=== PATIENT | female | born 1960 | race Caucasian/White ===

== ENCOUNTER 2017-07-16 13:08 | Inpatient (IN) | payer MEDICAID, OTHER ==
[2017-07-16] MEDS ORDERED: DOPamine 400 MG/D5W 250 ML 0 ML ONE (13:55)
[2017-07-16] MEDS ORDERED: Norepinephrine 8 MG/0.9% NS 250 ML ONE (13:55)
[2017-07-16] MEDS ORDERED: DOPamine 400 MG/D5W 250 ML 250 ML ONE (13:57)
[2017-07-16] MEDS ORDERED: DOPamine 400 MG/D5W 250 ML 250 ML IVPB SCH (14:00)
[2017-07-16] MEDS ORDERED: Sodium Chloride 0.9% 100 ML ONE (15:05)
[2017-07-16] MEDS ORDERED: Phenylephrine 10 MG/NS 250 ML 250 ML ONE (15:46)
[2017-07-16] MEDS ORDERED: Fentanyl 250 MCG/5 ML VIAL ONE (15:46)
[2017-07-16 16:02] LABS: Lactic Acid - Sepsis 2.2 mmol/L (0.5-2.2)
--- NOTE | 2017-07-16 16:27 | CT ---
CT ABDOMEN AND PELVIS WITHOUT CONTRAST: Date: 07/16/17 HISTORY: Abdominal pain. Sepsis. Elevated lactic acid level. COMPARISON: None. FINDINGS: Atelectasis in the lung bases. Severe thickening of the entire colon with areas suggestive of pneuma tosis of the transverse colon. There appears to be some breakdown of the wall of the transverse colo n and hepatic flexure. There is some free fluid in the pelvis anteriorly around the sigmoid colon. Charles catheter is in place. No nephrolithiasis. Aortic contour is without aneurysmal dilatation. Moderate degenerative disease L5-S1. IMPRESSION: Concern for breakdown of the integrity of the wall of nearly the entire colon with multiple areas of severe submucosal edema, thickening, pericolonic stranding, as well as free fluid near the sigmoid colon and the ectatic transverse colon with some areas of pneumatosis. Bowel ischemia and bowel is most likely. This goes along with patient's history. Dr. Huynh notified of the findings via telephone at 1420 hours. CODE CR. POS: [facility]
[2017-07-16] MEDS ORDERED: Lidocaine 2% PF 10 ML AMP (For Epidural Use) ONE (16:28)
[2017-07-16] MEDS ORDERED: PHENYLEPHRINE-NS 100 MCG/ML 10 ML SYRINGE ONE (16:28)
[2017-07-16] MEDS ORDERED: Succinylcholine Chloride 20 MG/ML 10 ml SYRINGE FS ONE (16:28)
[2017-07-16] MEDS ORDERED: Propofol 200 MG/20 ML VIAL ONE (16:28)
[2017-07-16] MEDS ORDERED: Sodium Bicarbonate 2.4 MEQ/5 ML ONE (16:55)
[2017-07-16] MEDS ORDERED: Sodium Bicarb 50 MEQ/50 ML Abboject 8.4% SYRINGE ONE (16:56)
[2017-07-16] MEDS ORDERED: Albumin 5% 500 ML ONE (16:57)
--- NOTE | 2017-07-16 17:11 | RAD ---
RADIOGRAPH CHEST 1 VIEW: Date: 07/16/17 Time: 1531 HOURS HISTORY: 56-year-old female status post central line placement. COMPARISON: 07/16/17 at 1037 hours from [facility]. FINDINGS: Again noted is the mild effacement of the left lateral costophrenic angle (which was not present on an older chest radiograph of 11/17/2014). Interstitial markings are prominent. A right subclavian ce ntral vascular catheter now descends the right mediastinum, with distal tip overlying the inferior p ortion of the right cardiac shadow. This is a supine image, and therefore insensitive for pneumothor ax detection. IMPRESSION: 1. Right subclavian central vascular catheter placement with distal tip overlying the lower portion of the right atrium. 2. No acute pulmonary findings. NAHUN [] POS: [facility]
[2017-07-16] MEDS ORDERED: Promethazine HCl 25 MG/ML VIAL IM PRN (18:25)
--- NOTE | 2017-07-16 18:36 | OP ---
PREOPERATIVE DIAGNOSIS: Acute abdomen. SURGEON: Juan Maldonado M.D. PROCEDURES PERFORMED: Exploratory laparotomy, left hemicolectomy with end transverse colostomy. INDICATIONS: The patient is a 56-year-old female who has a long psychiatric history on multiple serene gs who evidently was found by her family in a pile of feces in her house, fairly unresponsive. She was taken to the emergency room where CT scan showed that her colon appeared to be ischemic with mario e free air and she was septic and required pressors. FINDINGS: Her left colon was with an area of perforation in the distal sigmoid. DESCRIPTION OF THE PROCEDURE: After informed consent with the family on an emergency basis, the pat iesiddhartha was taken to the operating room. She was given general endotracheal anesthesia, and her abdome n was prepped and draped in the usual fashion. A midline incision was performed. Subcu divided sha rply. The fascia was incised. She had an incarcerated hernia of fat in that midline wound and this was opened up. Upon inspection, the left transverse colon looked mottled and on further inspection , there was maksim necrosis of the left colon down with some purulent fluid from a microperforation i n the sigmoid colon. The colon was mobilized and the rectum appeared to be fine. The rectum was di vided utilizing the contoured thick staple load. The mesentery divided utilizing the LigaSure. The n the splenic flexure was mobilized. The artery was palpable in the middle colic region, the colon was divided with a [id number]-75. The abdomen was thoroughly irrigated with saline and the rectum was tom ed with a 2-0 Prolene suture left long. Hemostasis assured. The skin was grasped in the right uppe r quadrant with a Rupali clamp and a circular incision was performed. The subcu divided sharply. T he fascia was scored. The colon was brought through this opening. It was sutured to the posterior layer with interrupted 2-0 Vicryl sutures. After hemostasis assured, the midline fascia was closed with a running looped #1 PDS and the skin loosely approximated with skin hanh and bryce and a marquis rile bandage applied. Then the colostomy was matured. The colon was sutured to the anterior fascia with interrupted 3-0 Vicryl suture. The staple line excised and the colostomy matured with interru pted 3-0 Vicryl sutures. Now, the serosa looked pretty healthy. However, the mucosa was dusky; how ever, I elected not to resect any further colon at this time. A colostomy wafer and appliance were placed. Hemostasis assured and the patient transferred to ICU in serious but stable condition on ve ntilator.
[2017-07-16] MEDS ORDERED: Lorazepam 2 MG/ML VIAL SLOW IVP PRN (18:45)
[2017-07-16] MEDS ORDERED: Fentanyl 20 MCG/ML 250 ML IVPB SCH (18:45)
[2017-07-16] MEDS ORDERED: Morphine Sulfate 2 MG/ML SYRINGE SLOW IVP PRN (18:45)
[2017-07-16] MEDS ORDERED: DISCONTINUE PREVIOUS NARCOTIC PAIN MEDICATIONS AND BENZODIAZEPINES FS SCH (18:45)
[2017-07-16 19:16] LABS: Oxyhemoglobin 98.3 % (94.0-97.0); Sodium 139 mmol/L (135-148)
[2017-07-16 19:25] LABS: Mechanical Tidal Volume 500 ml; Mode SIMV; Pressure Support 10 cmH2O; Vent YES
[2017-07-16] MEDS: Piperacillin/Tazobactam 3.375 GM in Sodium Chloride 0.9% 100 ML IVPB SCH (19:37)
[2017-07-16] MEDS: Sodium Chloride 0.9% 1,000 ML IV SCH (19:47)
--- NOTE | 2017-07-16 19:55 | CON ---
DATE OF CONSULTATION: 07/16/2017 CONSULTING PHYSICIAN: Dr. Juan Maldonado. REASON FOR CONSULTATION: Critical care management. HISTORY OF PRESENT ILLNESS: This is a 56-year-old female who was apparently found down at home on a pile of feces. She was brought to the [facility]. She underwent a CT scan of the ab domen, which demonstrated findings suggestive of bowel infarction. She was also noted to have low b lood pressure and severely elevated BUN and creatinine along with profound metabolic acidosis. She was brought to this facility where she underwent exploratory laparotomy with findings of a left colo n infarction. She underwent left colon resection followed by a transverse colostomy. She was left on mechanical ventilation after the procedure. PAST MEDICAL HISTORY: 1. Hypertension. 2. Gastrointestinal bleeding. 3. Anxiety. 4. Depression. 5. Post-traumatic stress disorder. PAST SURGICAL HISTORY: Cholecystectomy, hysterectomy, elbow surgery, section, oral surgery apparently she has also had some kind of partial colon resection in the past. ALLERGIES: CECLOR, CIPRO, IBUPROFEN, IMITREX, AND LATEX. SOCIAL HISTORY: Smokes, I am not sure how much. Does not drink alcohol. PSYCHIATRIC HISTORY: Apparently, she has significant psychiatric issues. FAMILY MEDICAL HISTORY: Remarkable for cancer, diabetes, and cervical cancer. REVIEW OF SYSTEMS: Unobtainable as the patient is on mechanical ventilation. PHYSICAL EXAMINATION: VITAL SIGNS: Pulse is 95, blood pressure 149/81, O2 sat 100%, respiratory rate 18. GENERAL: The patient is currently intubated and sedated. HEENT: Pupils are 5 mm and sluggishly reactive. Sclerae are anicteric. Oropharynx is clear. NECK: No adenopathy, JVD, or bruits. LUNGS: Clear to auscultation without wheezing or rhonchi. CARDIAC: S1, S2, slightly tachycardic without murmur, rub, or gallop. ABDOMEN: She has a midline surgical scar, also a right-sided colostomy is noted. EXTREMITIES: Without clubbing, cyanosis, or edema. SKIN: Shows no jaundice or rashes. LABORATORY AND DIAGNOSTIC DATA: Lactate is 2.2. Sodium 135, potassium 5.4, chloride 97, CO2 of 14, BUN 70, creatinine 3.6, glucose 70, albumin 3.3. White blood cell count 19.1, hemoglobin 18, hemat ocrit 55, platelet count 368. Urinalysis was essentially negative. Drug screen was positive for ba rbiturates, THC, and tricyclic antidepressants. EKG demonstrates a sinus tachycardia with no ST or T-wave changes. The chest x-ray demonstrated a right subclavian line extending down into the inferi or vena cava. There are no masses, effusions, or infiltrates. Endotracheal tube is in appropriate position. ABG, pH 7.30, pCO2 of 36, pO2 of 174 that is on SIMV rate 12, tidal volume 550 with FiO2 60%. ASSESSMENT: 1. Abdominal sepsis. 2. Status post bowel infarction with subsequent resection. 3. Significant psychiatric history with outpatient medications including trazodone, tramadol, clona zepam, Trileptal, naproxen, gabapentin, Cymbalta, Elavil, and albuterol. 4. Acute respiratory failure, requiring mechanical ventilation. PLAN: 1. This patient will be left on mechanical ventilation at least overnight. 2. Fluid resuscitation as per General Surgery. 3. Vasopressor if needed. 4. Broad spectrum IV antibiotics. 5. Enoxaparin for GI prophylaxis - needs to be renally dosed. 6. Pepcid or Protonix for GI prophylaxis. 7. Sedation per protocol. 8. Restraints for next 24 hours to patient for self extubation. The above encompassed 45 minutes of critical care time.
--- NOTE | 2017-07-16 20:45 | RAD ---
ONE VIEW CHEST: History: Status post intubation. Comparison: 07-16-17 FINDINGS: Interval placement of endotracheal and nasogastric tubes terminating at the level of the clavicle an d left upper quadrant respectively. Stable right sided catheter. No pneumothorax. Stable configurati on of cardiac silhouette and stable aeration of the lung parenchyma. IMPRESSION: Interval placement of endotracheal and nasogastric tube. POS: [facility]
[2017-07-16] MEDS ORDERED: FLU VACC QS2017-18 36 mo. & older 0.5 ML SYRINGE IM ONE (21:00)
[2017-07-16] MEDS ORDERED: Famotidine 20 MG TAB PO SCH (21:00)
[2017-07-16] MEDS: Famotidine/PF 20 mg/2ml Vial SLOW IVP SCH (22:18)
[2017-07-16] MEDS: metroNIDAZOLE 500 MG in Premix Bag 1 BAG IVPB SCH (22:18)
[2017-07-16] MEDS: Acetaminophen 1,000 MG in Premix Bag 1 BAG IVPB SCH (23:19)
[2017-07-16] MEDS: Norepinephrine 8 MG/250 ML BAG IVPB PRN (23:33)
[2017-07-17] MEDS: Piperacillin/Tazobactam 3.375 GM in Sodium Chloride 0.9% 100 ML IVPB SCH ×2 (01:23→08:59)
[2017-07-17] MEDS: Sodium Chloride 0.9% 1,000 ML IV SCH ×3 (02:30→21:14)
[2017-07-17] MEDS: Propofol 1,000 MG/100 ML VIAL IV PRN ×4 (02:37→21:14)
[2017-07-17 03:46] LABS: Anion Gap 16 mmol/L (10-20); BUN (Urea Nitrogen) 56 mg/dL (9.8-20.1); Calc. Creatinine Clearance 12 mL/min (70-130); Calcium 6.9 mg/dL (7.8-10.44); Carbon Dioxide 19 mmol/L (22-29); Chloride 108 mmol/L (98-107); Estimated GFR-MDRD 22
[2017-07-17 03:57] LABS: Band 31 % (5-11); Hematocrit 34.4 % (36.0-47.0); Mean Platelet Volume 7.1 fL (7.4-10.4); Metamyelocyte 3 % (0-0); Neutrophil 51 % (42-75); Red Blood Cell (RBC) Count 3.44 mill/uL (4.20-5.40); White Blood Cell (WBC) Count 8.2 thou/uL (4.8-10.8)
[2017-07-17] MEDS: metroNIDAZOLE 500 MG in Premix Bag 1 BAG IVPB SCH ×3 (05:00→21:15)
[2017-07-17] MEDS: Acetaminophen 1,000 MG in Premix Bag 1 BAG IVPB SCH ×3 (05:00→17:01)
--- NOTE | 2017-07-17 06:09 | HP ---
CHIEF COMPLAINT: Abdominal pain and sepsis. HISTORY OF PRESENT ILLNESS: The patient is a 56-year-old female who has known bipolar disease and h as had a lot of issues with her family. Apparently, she was complaining of some abdominal pain and diarrhea. They thought she was just having vertigo, then she was found down and ambulance was oliver d. She was taken to the hospital in [place]. She was found to be septic and to be tachycardic. They did a CAT scan showing what appears to be a colon. She is in renal failure, anuric. PAST SURGICAL HISTORY: Include laparoscopic cholecystectomy, hysterectomy. She has had a previous partial colectomy for diverticulitis. She has had right arm surgery and oral surgery. MEDICATIONS: Cymbalta, trazodone, tramadol, clonazepam, Trileptal, Elavil, albuterol. ALLERGIES: To CIPRO and IMITREX. PHYSICAL EXAMINATION: VITAL SIGNS: Temperature 97, pulse 129, blood pressure 140/90. GENERAL: She is awake, alert, but very confused. HEENT: Unremarkable. LUNGS: Clear. HEART: Regular rate and rhythm, but tachycardic. ABDOMEN: Distended. She has a midline scar that is healed. She has diffuse peritoneal signs. The re are no palpable masses. It is distended. IMAGING: She had a CT scan that shows pneumatosis of the colon with probable perforation. ASSESSMENT: Possible ischemic colitis with perforation. PLAN: Exploratory laparotomy, possible bowel resection, possible ostomy. Her family understands an mai gives informed consent.
[2017-07-17] MEDS ORDERED: Calcium Chloride 13.6 MEQ in Sodium Chloride 0.9% 100 ML IVPB SCH (08:15)
[2017-07-17] MEDS: Famotidine/PF 20 mg/2ml Vial SLOW IVP SCH (08:21)
[2017-07-17] MEDS ORDERED: Enoxaparin Sodium 30 MG/0.3 ML SYRINGE SC SCH (09:00)
[2017-07-17] MEDS ORDERED: Sodium Chloride 0.9% 1,000 ML IV SCH (09:00)
[2017-07-17] MEDS ORDERED: Enoxaparin Sodium 40 MG/0.4 ML SYRINGE SC SCH (09:00)
--- NOTE | 2017-07-17 09:38 | PRG ---
DATE OF SERVICE: 07/17/2017 PULMONARY AND CRITICAL CARE PROGRESS NOTE Thirty five minutes of critical care time. SUBJECTIVE: The patient remains intubated on mechanical ventilation. She will wake up and nods palma t she understands me. PHYSICAL EXAMINATION: VITAL SIGNS: Temperature is 99.2, blood pressure 106/64, respiratory rate 16, O2 sat 99%, 24-hour i ntake 1871 and output 1705. Most of that through urine output. HEENT: Unremarkable. NECK: No JVD. LUNGS: Clear to auscultation. CARDIAC: S1, S2, slightly tachycardic. ABDOMEN: The ostomy site is miller, otherwise abdomen is soft. EXTREMITIES: Without clubbing, cyanosis, or edema. LABORATORY DATA: Sodium 139, potassium 3.5, chloride 108, CO2 of 19, BUN 56, creatinine 2.3, glucos e 125, calcium 6.9. White blood cell count 8.2, hematocrit 34.4, platelet count 231. ABG result is pending. ASSESSMENT: 1. Postoperative from colon resection. 2. Septic shock secondary to abdominal sepsis from ischemic bowel. 3. Significant psychiatric history, on multiple medications. 4. Acute respiratory failure requiring mechanical ventilation. PLAN: 1. She is not weanable yet secondary to her vasopressor requirement. She may end up needing to go back to the OR for further revision of her colostomy site. 2. We will adjust her mechanical ventilation based on results of her ABG. 3. Continue broad spectrum IV antibiotics, continue IV fluids. 4. We will discuss with Dr. Maldonado.
[2017-07-17 15:19] LABS: Oxyhemoglobin 98.8 % (94.0-97.0); Sodium 139 mmol/L (135-148)
[2017-07-17] MEDS: Piperacillin/Tazobactam 2.25 GM in Sodium Chloride 0.9% 100 ML IVPB SCH ×2 (15:24→23:57)
[2017-07-17 15:44] LABS: Mode OR ABG; Vent YES
[2017-07-17 15:54] LABS: Mode OR ABG; Oxyhemoglobin 98.2 % (94.0-97.0); Sodium 141 mmol/L (135-148); Vent YES
[2017-07-17] MEDS: Norepinephrine 8 MG/250 ML BAG IVPB PRN (21:16)
[2017-07-17] MEDS: Heparin 5,000 UNITS/ML VIAL SC SCH (21:23)
[2017-07-18] MEDS: metroNIDAZOLE 500 MG in Premix Bag 1 BAG IVPB SCH ×3 (05:17→22:03)
[2017-07-18] MEDS: Sodium Chloride 0.9% 1,000 ML IV SCH ×2 (05:17→15:44)
[2017-07-18] MEDS: Propofol 1,000 MG/100 ML VIAL IV PRN (05:17)
--- NOTE | 2017-07-18 06:02 | CON ---
DATE OF CONSULTATION: 07/17/2017 CONSULTING PHYSICIAN: Juan Maldonado M.D. REASON FOR CONSULTATION: Acute kidney injury. REASON FOR ADMISSION: Altered mentation and hypotension. HISTORY OF PRESENT ILLNESS: This is a 56-year-old female with a history of hypertension, GI bleed, anxiety, depression, who was brought to the hospital as she found out in the home. She was severely hypotensive and is being resuscitated. She is currently in ICU, intubated, and she also had explor atory laparotomy with left colon infarction. Currently, she is making some urine and she is on pressors, but intubated. Her sister was at the [facility]. No fever or chills reported. PAST MEDICAL HISTORY: Positive for hypertension, GI bleed, anxiety, depression, and posttraumatic s tress disorder. PAST SURGICAL HISTORY: Cholecystectomy, hysterectomy, elbow surgery, , oral surgery, parti al colon resection. HOME MEDICATIONS: Include trazodone, tramadol, Klonopin, Trileptal, naproxen, gabapentin, Cymbalta, Elavil, and albuterol. ALLERGIES: CIPROFLOXACIN, IBUPROFEN, LATEX, and SUMATRIPTAN. SOCIAL HISTORY: No smoking, alcohol, or illicit drug abuse. FAMILY HISTORY: No history of any kidney disease. REVIEW OF SYSTEMS: Review of systems could not be obtained, she is intubated. PHYSICAL EXAMINATION: GENERAL: A well-developed female, seen in ICU, intubated. VITAL SIGNS: Temperature 98.9, pulse 87, respiratory rate 19, blood pressure 137/81. HEENT: Intubated. CARDIOVASCULAR: S1 and S2 heard. Rate and rhythm regular. RESPIRATORY: Clear. GASTROINTESTINAL: Abdomen is soft. MUSCULOSKELETAL: No tenderness. No edema. DERMATOLOGIC: No skin rash. NEUROLOGIC: Intubated and sedated. LABORATORY DATA: Hemoglobin is 11.6. Potassium is 3.5, BUN is 56, creatinine is 2.2. ASSESSMENT AND PLAN: 1. Acute kidney injury, most likely from volume depletion and hemodynamically mediated, erasmo nue IV fluids and supportive care. Avoid nephrotoxins. 2. Acidosis. Continue on IV fluids. 3. Anemia, mild. 4. Edema, stable. 5. Rule out any sepsis, ischemic colitis. The plan is to continue supportive care. No acute indication for dialysis. Recommend changing Love nox to heparin given the acute kidney injury and avoid morphine due to the potential of building up of toxic metabolites. Continue supportive care including pressors and we will continue close monito ring. Thank you for the consult.
[2017-07-18 07:24] LABS: Oxyhemoglobin 98.2 % (94.0-97.0)
[2017-07-18 07:29] LABS: Mechanical Tidal Volume 500 ml; Mode SIMV; Pressure Support 10 cmH2O; Vent YES
--- NOTE | 2017-07-18 08:01 | PRG ---
DATE OF SERVICE: 07/18/2017 Thirty-five minutes critical care time. The patient remains intubated on mechanical ventilation. There have been no acute changes overnight . PHYSICAL EXAMINATION: VITAL SIGNS: Temperature 97.6, pulse 71, blood pressure 113/73. Currently not on any vasopressor a s of 5:00 a.m. this morning. Total intake for 24 hours 4575, output 2290. HEENT: Unremarkable. NECK: No JVD. LUNGS: Clear to auscultation. CARDIOVASCULAR: S1, S2 regular. ABDOMEN: Soft. The ostomy site looks melendrez and dusky, has foul odor. EXTREMITIES: No edema. LABORATORY DATA: CBC and base met are pending. ABG, pH 7.40, pCO2 26, pO2 124 on SIMV rate 16, tid al volume 500, PEEP 5, pressure support 10, FiO2 30%. Chest x-ray demonstrates no acute abnormalities. ET tube and central line are in good position and she has an NG tube going in the stomach. ASSESSMENT: 1. Status post resection of ischemic large bowel with subsequent colostomy. 2. Acute respiratory failure requiring mechanical ventilation. 3. Underlying psychiatric history. 4. Escherichia coli sepsis. PLAN: 1. Continue IV antibiotics. I think she is currently on piperacillin and metronidazole - adjust an tibiotics based on sensitivities. 2. Decrease respiratory rate on vent. 3. Hopefully work toward extubation provided the ostomy site looks okay and she does not require fu rther operative therapy.
[2017-07-18 08:36] LABS: Hematocrit 27.8 % (36.0-47.0); Mean Platelet Volume 7.3 fL (7.4-10.4); Red Blood Cell (RBC) Count 2.77 mill/uL (4.20-5.40); White Blood Cell (WBC) Count 12.1 thou/uL (4.8-10.8)
--- NOTE | 2017-07-18 08:43 | RAD ---
CHEST ONE VIEW: History: Intubated. Dyspnea. Follow up. Comparison: 07-16-17 FINDINGS: Cardiac silhouette is magnified by projection. Pulmonary vasculature is unremarkable. Mediastinum is midline. Lines and tubes appear unchanged in position. tufting supervisor leads overlie the chest. IMPRESSION: 1. Stable radiographic appearance of the chest. POS: [facility]
[2017-07-18 09:00] LABS: Band 33 % (5-11); Neutrophil 51 % (42-75); Toxic Granulation SLIGHT
[2017-07-18] MEDS: Piperacillin/Tazobactam 2.25 GM in Sodium Chloride 0.9% 100 ML IVPB SCH ×3 (09:02→22:59)
[2017-07-18 09:07] LABS: Anion Gap 12 mmol/L (10-20); BUN (Urea Nitrogen) 43 mg/dL (9.8-20.1); Calc. Creatinine Clearance 30 mL/min (70-130); Calcium 8.1 mg/dL (7.8-10.44); Carbon Dioxide 15 mmol/L (22-29); Chloride 116 mmol/L (98-107); Estimated GFR-MDRD 26
[2017-07-18] MEDS: Heparin 5,000 UNITS/ML VIAL SC SCH ×2 (09:07→20:00)
[2017-07-18] MEDS: Famotidine/PF 20 mg/2ml Vial SLOW IVP SCH (09:07)
--- NOTE | 2017-07-18 09:19 | PRG ---
DATE OF SERVICE 07/18/2016. SUBJECTIVE: The patient was seen and examined in ICU. She currently is intubated. Sister was at t he bedside. No fever or chills and urine output is improving. PHYSICAL EXAMINATION: GENERAL: This is a well-built female, intubated and seen in ICU. VITAL SIGNS: Temperature 98.1, pulse 97, respiratory 20, blood pressure 112/64. HEENT: Intubated. CARDIOVASCULAR: S1, S2 heard. Rate and rhythm regular. RESPIRATORY: Clear. GI: Abdomen is soft. MUSCULOSKELETAL: No tenderness. DERMATOLOGIC: No skin rashes. NEUROLOGIC: Intubated and sedated. PSYCHIATRIC: Not assessed. LABORATORY DATA: Pending. ASSESSMENT AND PLAN: 1. Acute kidney injury most likely secondary to volume depletion, sepsis and hemodynamics, dynamica lly mediated processes. Continue IV fluids. Seems like urine output is improving with positive sig ns of renal recovery. We will continue to follow. Avoid nephrotoxins, Lovenox changed to heparin. 2. Acidosis, stable. 3. Anemia. 4. Edema, controlled. Repeat labs today and will follow. Avoid nephrotoxins.
[2017-07-18] MEDS ORDERED: CCU Electrolyte Replacement 1 EACH FS ONE (14:34)
[2017-07-18] MEDS ORDERED: DC Sedation Protocol FS ONE (14:38)
[2017-07-18] MEDS ORDERED: Potassium Phosphate 15 MMOL in Sodium Chloride 0.9% 250 ML 250 ML IV PRN (14:48)
[2017-07-18] MEDS ORDERED: Potassium Phosphate 9 MMOL in Sodium Chloride 0.9% 100 ML IVPB PRN (14:48)
[2017-07-18] MEDS ORDERED: Magnesium 2 GM/NS 0.9% 100 ML 2 GM in Premix Bag 1 BAG IVPB PRN (14:48)
[2017-07-18] MEDS ORDERED: Potassium Chloride 20 MEQ TAB PO PRN (14:48)
[2017-07-18] MEDS ORDERED: CCU ELECTROLYTE REPLACEMENT PROTOCOL FS PRN (14:48)
[2017-07-18] MEDS ORDERED: Potassium Chloride 40 MEQ in Sodium Chloride 0.9% 250 ML 250 ML IVPB PRN (14:48)
[2017-07-18] MEDS ORDERED: Potassium Phosphate 12 MMOL in Sodium Chloride 0.9% 250 ML 250 ML IV PRN (14:48)
[2017-07-18] MEDS ORDERED: Magnesium Oxide 400 MG TAB PO PRN ×2 (14:48)
[2017-07-18] MEDS: Potassium Chloride 40 MEQ in Premix Bag 1 BAG IVPB PRN (15:51)
[2017-07-18] MEDS ORDERED: Sodium Bicarbonate 150 MEQ in Dextrose 5% in Water 850 ML IV SCH ×2 (17:15)
[2017-07-18] MEDS: Labetalol HCl 100 MG/20 ML VIAL SLOW IVP PRN ×2 (19:56→22:59)
[2017-07-19] MEDS: Labetalol HCl 100 MG/20 ML VIAL SLOW IVP PRN ×2 (05:23→23:51)
[2017-07-19] MEDS: metroNIDAZOLE 500 MG in Premix Bag 1 BAG IVPB SCH ×3 (05:23→21:00)
[2017-07-19 05:44] LABS: Band 14 % (5-11); Hematocrit 29.6 % (36.0-47.0); Mean Platelet Volume 7.4 fL (7.4-10.4); Neutrophil 78 % (42-75); Red Blood Cell (RBC) Count 2.95 mill/uL (4.20-5.40); White Blood Cell (WBC) Count 13.5 thou/uL (4.8-10.8)
--- NOTE | 2017-07-19 07:04 | PRG ---
DATE OF SERVICE: 07/19/2017 I was able to extubate Ms. Ricardo yesterday afternoon without much difficulty. Unfortunately, she h as remained psychotic overnight has required restraints to keep from pulling out her central line an d urinary catheter. PHYSICAL EXAMINATION: VITAL SIGNS: Temperature is 98.1, pulse 68, blood pressure 176/93, 24 hour intake 2430, output 4515 . HEENT: Unremarkable. NECK: Without adenopathy or JVD. LUNGS: Clear without wheezing. CARDIOVASCULAR: S1, S2 regular. ABDOMEN: Slightly tender around the surgical site. EXTREMITIES: Without clubbing, cyanosis, or edema. LABORATORY DATA: White blood cell count 13.5, hemoglobin 9.8, hematocrit 29.6, platelet count 172. Chemistry results pending. ASSESSMENT: 1. Status post acute respiratory failure. 2. Status post resection of colon. 3. Psychosis. PLAN: 1. Restart most of her psychiatric medications. 2. Geodon as needed. 3. Would leave in the ICU until her psychosis is more controlled.
[2017-07-19 07:45] LABS: Anion Gap 13 mmol/L (10-20); BUN (Urea Nitrogen) 26 mg/dL (9.8-20.1); Calc. Creatinine Clearance 39 mL/min (70-130); Carbon Dioxide 23 mmol/L (22-29); Chloride 111 mmol/L (98-107); Estimated GFR-MDRD 35
[2017-07-19] MEDS ORDERED: Sterile Water 10 ML ONE (08:11)
[2017-07-19] MEDS: Piperacillin/Tazobactam 2.25 GM in Sodium Chloride 0.9% 100 ML IVPB SCH ×3 (08:15→23:00)
[2017-07-19] MEDS: Famotidine/PF 20 mg/2ml Vial SLOW IVP SCH (08:16)
[2017-07-19] MEDS: Heparin 5,000 UNITS/ML VIAL SC SCH ×2 (08:16→20:20)
[2017-07-19] MEDS: OXcarbazepine 300 MG TAB PO SCH ×2 (08:17→20:20)
[2017-07-19] MEDS: Potassium Chloride 40 MEQ in Premix Bag 1 BAG IVPB PRN ×2 (08:17→23:59)
[2017-07-19] MEDS: Sodium Chloride 0.45% 1,000 ML IV SCH (08:18)
[2017-07-19] MEDS: Ziprasidone 20 MG VIAL IM PRN (08:18)
[2017-07-19] MEDS: Ondansetron HCl/PF 4 MG/2 ML Vial IVP PRN (08:26)
[2017-07-19] MEDS ORDERED: OXcarbazepine 600 MG TAB PO SCH (09:00)
[2017-07-19 14:04] LABS: Magnesium 1.7 mg/dL (1.6-2.6)
[2017-07-19] MEDS: clonazePAM 1 MG TAB PO SCH (20:20)
[2017-07-19] MEDS: rOPINIRole HCl 1 MG TAB PO SCH (20:20)
[2017-07-20] MEDS: Labetalol HCl 100 MG/20 ML VIAL SLOW IVP PRN ×2 (03:31→05:31)
[2017-07-20] MEDS: Sodium Chloride 0.45% 1,000 ML IV SCH (04:59)
[2017-07-20] MEDS: metroNIDAZOLE 500 MG in Premix Bag 1 BAG IVPB SCH ×3 (05:00→20:43)
[2017-07-20 05:13] LABS: Anion Gap 12 mmol/L (10-20); BUN (Urea Nitrogen) 21 mg/dL (9.8-20.1); Calc. Creatinine Clearance 50 mL/min (70-130); Carbon Dioxide 23 mmol/L (22-29); Chloride 111 mmol/L (98-107); Estimated GFR-MDRD 51; Magnesium 1.4 mg/dL (1.6-2.6)
[2017-07-20] MEDS: Potassium Chloride 40 MEQ in Premix Bag 1 BAG IVPB PRN (05:25)
[2017-07-20 05:26] LABS: Anisocytosis SLIGHT = 6-15 cells (100X) (0-5/hpf); Band 6 % (5-11); Hematocrit 31.1 % (36.0-47.0); Mean Platelet Volume 8.4 fL (7.4-10.4); Neutrophil 72 % (42-75); Reactive Lymphocytes 1 % (0-10); Red Blood Cell (RBC) Count 3.09 mill/uL (4.20-5.40); Schistocytes SLIGHT = 2-5 cells (100X) (0-1/hpf); White Blood Cell (WBC) Count 10.8 thou/uL (4.8-10.8)
--- NOTE | 2017-07-20 05:57 | PRG ---
DATE OF SERVICE: 07/19/2017 SUBJECTIVE: Patient was seen and examined at bedside and overnight events noted. Patient denies an y shortness of breath or chest pain or palpitation. No history of nausea or vomiting or diarrhea or fever or chills or cramps. OBJECTIVE: GENERAL: This is a well-built female, in no apparent distress. VITAL SIGNS: Temperature 99.1, pulse 96, respiratory rate 18, blood pressure . HEENT: Atraumatic, normocephalic, oral mucosa is moist. NECK: Supple. CARDIOVASCULAR: S1, S2 heard, rate and rhythm regular. RESPIRATORY: Clear to auscultation. GASTROINTESTINAL: Abdomen is soft. MUSCULOSKELETAL: No tenderness, no edema. DERMATOLOGIC: No skin rash. NEUROLOGIC: Alert and awake and oriented x3, no focal neurologic deficits. Moving all the extremit ies. PSYCHIATRIC: Mood and affect normal LABORATORY DATA: Potassium is 2.7, BUN is 26, creatinine is 1.5. ASSESSMENT AND PLAN: 1. Acute kidney injury, much better. Continue hydration as tolerated, continue half NS. 2. Avoid nephrotoxins. 3. Hypokalemia. We will replace and continue close monitoring. Magnesium level is stable. Monito r magnesium level too. 4. Acidosis, stable. 5. Anemia 6. Edema, controlled. 7. We will replace potassium aggressively. We will give 60 mEq of potassium this afternoon and mon itor magnesium. We will follow.
[2017-07-20] MEDS ORDERED: cloNIDine HCl 0.1 MG TAB PO PRN (07:24)
--- NOTE | 2017-07-20 07:50 | PRG ---
DATE OF SERVICE: 07/20/2016 She is much more oriented and pleasant today compared to yesterday. She had no complaints. PHYSICAL EXAMINATION: VITAL SIGNS: Temperature is 98.1, pulse 98, blood pressure 151/106, 24 hour intake 2394, output 385 5. HEENT: Unremarkable. NECK: No JVD. LUNGS: Clear to auscultation. CARDIOVASCULAR: S1, S2 regular. ABDOMEN: Soft, nontender. EXTREMITIES: No clubbing, cyanosis, or edema. LABORATORY DATA: White blood cell count 10.8, hematocrit 31, platelet count 138. Sodium 143, potas sium 3.3, chloride 111, CO2 23, BUN 20, creatinine 1.0, glucose 82. ASSESSMENT: 1. Status post laparotomy. 2. Status post resection of colon. 3. Psychosis, which has improved. 4. Renal insufficiency which has resolved with hydration and improvement in the sepsis. PLAN: The patient is being transferred to the floor. Hospitalists have been consulted for blood pr essure management. I went ahead and restart her clonidine and propranolol that she takes at home. Increased activity as tolerated. She is on heparin for DVT prophylaxis.
[2017-07-20] MEDS: Piperacillin/Tazobactam 2.25 GM in Sodium Chloride 0.9% 100 ML IVPB SCH ×2 (08:06→17:47)
[2017-07-20] MEDS: OXcarbazepine 300 MG TAB PO SCH ×2 (08:08→20:29)
[2017-07-20] MEDS: Famotidine 20 MG TAB PO SCH (08:09)
--- NOTE | 2017-07-20 08:36 | CON ---
DATE OF CONSULTATION: 07/20/2017 HISTORY OF PRESENT ILLNESS: The patient is currently in the Critical Care Unit. She was admitted 1 after being found down by her family. She was found to have an acute abdomen. After work up, was taken to the operating room on 07/16/2017 for an exploratory laparotomy, left hemicolectomy with transverse colostomy. The patient had a perforated bowel with sections of nonviable bowel. Georges garibay was taken to the Intensive Care Unit where she was eventually extubated. She is currently resting quietly in the bed. When I attempt to interview her, the only answer I get out of her is \\\\"yes I do\\\\". In discussing with the nursing staff, her mental status is labile, but frequently encephalop athic. PAST MEDICAL HISTORY: Recent abdominal surgery with bowel resection and colostomy. She has had a p rior cholecystectomy, hysterectomy, and a previous partial colectomy for diverticulitis. CURRENT MEDICATIONS: Listed are Cymbalta, trazodone, tramadol, clonazepam, Trileptal, Elavil. PAST PSYCHIATRIC HISTORY: Apparently bipolar. ALLERGIES: CIPRO and IMITREX. SOCIAL HISTORY: Unobtainable due to the patient's current mental status. FAMILY HISTORY: Unobtainable due to the patient's current mental status. REVIEW OF SYSTEMS: Unobtainable due to the patient's current mental status. PHYSICAL EXAMINATION: GENERAL: Alert, however, answers no questions sensibly. VITAL SIGNS: Current blood pressure is 184/111, O2 sats 98-100, respirations 16-24, pulse 80-90, te mperature 97.6. HEENT: Reveal pupils equal, round, and reactive. Extraocular movements are grossly intact. The pa tient does not follow directions as well as one might hope. Tympanic membranes are clear. Nose is clear. Sclerae white. Dental hygiene is good. NECK: Supple, no jugular venous distention, adenopathy, thyromegaly. CHEST: Clear to auscultation and percussion. HEART: Regular rate and rhythm. First and second heart sounds clear. No appreciated murmurs or ga llops. ABDOMEN: The abdomen is not distended, bowel sounds are somewhat diminished. No mass or hepatosple nomegaly was appreciated. There was mild tenderness. EXTREMITIES: Reveal no cyanosis, clubbing or edema. PULSES: Carotid, radial, femoral, and dorsalis pedis pulses intact and symmetric. SKIN: Warm and dry. Bandages on abdomen are present. HEME/LYMPH: Reveals no tender or swollen lymph nodes in axilla, inguinal or cervical area. NEUROLOGIC: Cranial nerves II-XII are intact. Moved all extremities. Strength is grossly symmetri c. Deep tendon reflexes symmetric. X-RAY FINDINGS: Most recent chest x-ray 07/18/2017; no cardiomegaly, CHF or infiltrate. Endotrache al tube is present. There is blunting of the left costophrenic angle which suggests a very small pl eural effusion, it was reviewed by me. LABORATORY: White count is 10.5, hemoglobin 10.5, platelet count is 138,000. She has mildly macroc ytic indices. Most recent chemistries 07/19/2017; sodium 143, potassium 3.3, chloride 111, BUN 21, creatinine 1.0. Magnesium is low at 1.4, calcium is normal at 9. CURRENT DIAGNOSES: 1. Acute renal failure, improving. 2. Hypertension. 3. Bipolar, currently encephalopathic. 4. Hypokalemia. 5. Anemia. 6. Postoperative abdominal surgery with a colostomy. PLAN: Renal function is improving. We will continue to follow. Potassium minimum was 2.5, is curr ently up to 3.3, supplementation will continue. The two most pressing problems currently are her me ntal status and her hypertension. She has been given Geodon for agitation. She will need medicatio ns for blood pressure control. Thank you for the consult. We will follow closely with you.
[2017-07-20] MEDS: Heparin 5,000 UNITS/ML VIAL SC SCH ×2 (08:39→20:33)
--- NOTE | 2017-07-20 10:54 | PRG ---
DATE OF SERVICE: 07/20/2017 SUBJECTIVE: Patient was seen and examined at bedside and overnight events noted. Patient denies an y shortness of breath or chest pain or palpitation. No history of nausea or vomiting or diarrhea or fever or chills or cramps. OBJECTIVE: GENERAL: This is a well-built female in no apparent distress. VITAL SIGNS: Temperature 97.6, pulse 77, respiratory 18, blood pressure 169/109. HEENT: Atraumatic, normocephalic. Oral mucosa is moist. NECK: Supple. CARDIOVASCULAR: S1, S2 heard. Rate and rhythm regular. RESPIRATORY: Clear to auscultation. GASTROINTESTINAL: Abdomen is soft. MUSCULOSKELETAL: No tenderness. No edema. DERMATOLOGIC: No skin rash. NEUROLOGIC: Alert and awake and oriented x3. No focal neurologic deficits. Moving all the extremi ties. PSYCHIATRIC: Mood and affect normal. LABORATORY DATA: Potassium is 3.3, BUN is 21, creatinine is 1.1. ASSESSMENT AND PLAN: 1. Acute kidney injury. Renal function is much better. 2. Hypokalemia, replace and monitor. 3. Edema, controlled. 4. Hypertension, stable. 5. Acidosis, stable. 6. Overall renal function is stable and close to normal. I will sign off. Please call back with any questions.
[2017-07-20] MEDS ORDERED: Sterile Water 10 ML ONE (14:00)
[2017-07-20] MEDS: Ziprasidone 20 MG VIAL IM PRN (14:02)
[2017-07-20] MEDS: clonazePAM 1 MG TAB PO SCH (20:29)
[2017-07-20] MEDS: rOPINIRole HCl 1 MG TAB PO SCH (20:30)
[2017-07-21] MEDS: Piperacillin/Tazobactam 2.25 GM in Sodium Chloride 0.9% 100 ML IVPB SCH ×2 (00:32→09:50)
[2017-07-21] MEDS: Sodium Chloride 0.45% 1,000 ML IV SCH ×2 (00:59→08:56)
[2017-07-21 04:50] LABS: Anion Gap 16 mmol/L (10-20); BUN (Urea Nitrogen) 33 mg/dL (9.8-20.1); Calc. Creatinine Clearance 37 mL/min (70-130); Calcium 8.9 mg/dL (7.8-10.44); Carbon Dioxide 16 mmol/L (22-29); Chloride 109 mmol/L (98-107); Estimated GFR-MDRD 36
[2017-07-21 05:00] LABS: Band 8 % (5-11); Hematocrit 31.5 % (36.0-47.0); Mean Platelet Volume 9.6 fL (7.4-10.4); Metamyelocyte 2 % (0-0); Neutrophil 71 % (42-75); Red Blood Cell (RBC) Count 3.09 mill/uL (4.20-5.40); White Blood Cell (WBC) Count 14.9 thou/uL (4.8-10.8)
[2017-07-21] MEDS: metroNIDAZOLE 500 MG in Premix Bag 1 BAG IVPB SCH ×3 (06:22→21:03)
--- NOTE | 2017-07-21 08:31 | PRG ---
DATE OF SERVICE: 07/21/2017 SUBJECTIVE: She is calm this morning. Apparently, slept well last night. PHYSICAL EXAMINATION: VITAL SIGNS: On exam, temperature 98.2, pulse 102, respirations 18, and O2 sats 96%, blood pressure 121/87. HEENT: Unremarkable. NECK: No JVD. CHEST: Clear to auscultation without wheezing. CARDIAC: S1 and S2 regular. ABDOMEN: Soft. Ostomy site looks good. EXTREMITIES: No edema. LABORATORY DATA: White blood cell count 14.9, hematocrit 31.5, platelet count 155. Sodium 137, pot assium 3.6, chloride 109, CO2 16, anion gap 16, BUN 33, creatinine 1.5, glucose 109. ASSESSMENT: 1. Status post colectomy for bowel. 2. Status post laparotomy. 3. Psychosis, which is slowly improving. 4. Renal insufficiency. 5. Non-anion gap metabolic acidosis. PLAN: Her respiratory status seems to be reasonably stable. Main issue now is continuing treatment of her infection and management of her hypertension and psychosis. She is being followed concurren tly by the hospitalist service. Dr. Boateng is available if help needed over the weekend.
[2017-07-21] MEDS: Heparin 5,000 UNITS/ML VIAL SC SCH ×2 (09:52→22:38)
[2017-07-21] MEDS ORDERED: cloNIDine HCl 0.1 MG TAB PO PRN (10:09)
--- NOTE | 2017-07-21 10:25 | PDOC.PN ---
- Subjective Encounter Start Date: 07/21/17 Encounter Start Time: 10:23 Patient seen and examined. Overnight events noted. Jin placed last night. Sitter at bedside. - Objective MAR Reviewed: Yes Vital Signs & Weight: Vital Signs (12 hours) Temp Pulse Resp BP Pulse Ox 07/21/17 10:04 86 14 97 07/21/17 07:35 98.2 F 102 H 18 121/87 96 07/21/17 06:18 89 14 99 07/21/17 05:00 97.6 F 102 H 16 114/78 95 07/21/17 00:00 97.8 F 94 18 149/110 H 96 Weight Admit Weight 132 lb 11.492 oz Weight 124 lb 5.451 oz Most Recent Monitor Data Heart Rate from ECG 77 NIBP 179/106 NIBP BP-Mean 149 Respiration from ECG 24 SpO2 100 I&O: 07/20/17 07/21/17 07/22/17 06:59 06:59 06:59 Intake Total 2394 1840 Output Total 3855 1330 Balance -1461 510 Result Diagrams: 07/21/17 04:09 07/21/17 11:47 Radiology Reviewed by me: Yes (CXR - NAD) Phys Exam - Physical Examination Constitutional: NAD (Does not answer to any questions. Arousable on verbal stimuli) Respiratory: no wheezing, no rhonchi Cardiovascular: RRR, no rub Gastrointestinal: soft, positive bowel sounds Musculoskeletal: no edema Neurological: moves all 4 limbs Dx/Plan (1) Toxic metabolic encephalopathy Code(s): G92 - TOXIC ENCEPHALOPATHY Status: Acute (2) Electrolyte imbalance Code(s): E87.8 - OTH DISORDERS OF ELECTROLYTE AND FLUID BALANCE, NEC Status: Acute (3) PREET (acute kidney injury) Code(s): N17.9 - ACUTE KIDNEY FAILURE, UNSPECIFIED Status: Acute (4) Elevated BP without diagnosis of hypertension Code(s): R03.0 - ELEVATED BLOOD-PRESSURE READING, W/O DIAGNOSIS OF HTN Status : Acute (5) Bipolar disorder Code(s): F31.9 - BIPOLAR DISORDER, UNSPECIFIED Status: Chronic (6) Urinary retention Code(s): R33.9 - RETENTION OF URINE, UNSPECIFIED Status: Acute Comment: s/p jin 07/21 (7) Metabolic acidosis Code(s): E87.2 - ACIDOSIS Status: Acute - Plan cont current plan of care, plan discussed w/ family (at bedside), DVT proph w/ heparin, DVT proph w/SCDs * Cont IVF * Nephrology following * Add Cloinidine PRN * Await [employer]ACH[employer] eval - Will receive meds after clearance from [employer]INE [employer] * AM labs - also check Lactic acid/TSH * Cont current meds as below * DC Electrolyte protocol Review of Systems - Review of Systems Other: Cannot be obtained due to current cognition - Medications/Allergies Allergies/Adverse Reactions: Allergies Allergy/AdvReac Type Severity Reaction Status Date / Time ciprofloxacin [From Cipro] Allergy Verified 07/20/17 02:20 ciprofloxacin HCl Allergy Verified 07/20/17 02:20 [From Cipro] ibuprofen Allergy Verified 07/20/17 02:20 latex Allergy Verified 07/16/17 19:58 sumatriptan [From Imitrex] Allergy Verified 07/20/17 02:20 sumatriptan succinate Allergy Verified 07/20/17 02:20 [From Imitrex] Medications: Current Medications Albuterol/Ipratropium (Duoneb) 3 ml NEB [id number] [facility] Last Admin: 07/21/17 10:04 Dose: 3 ml Clonazepam (Klonopin) 1 mg PO QPM [facility] Last Admin: 07/20/17 20:29 Dose: 1 mg Clonidine HCl (Catapres) 0.1 mg PO Q4H PRN PRN Reason: Systolic BP > 180 Duloxetine HCl (Cymbalta) 20 mg PO DAILY [facility] Last Admin: 07/20/17 08:08 Dose: 20 mg Famotidine (Pepcid) 20 mg PO 0900 [facility] Last Admin: 07/20/17 08:09 Dose: 20 mg Heparin Sodium (Porcine) (Heparin) 5,000 units SC BID [facility] Last Admin: 07/21/17 09:52 Dose: 5,000 units Hydralazine HCl (Apresoline) 10 mg SLOW IVP Q4H PRN PRN Reason: SBP > 170 or DBP > 100 Last Admin: 07/20/17 14:27 Dose: 10 mg Metronidazole 500 mg/ Device 100 mls @ 100 mls/hr IVPB Q8HR [facility] Last Admin: 07/21/17 06:22 Dose: 100 mls Piperacillin Sod/Tazobactam (Sod 2.25 gm/ Sodium Chloride) 100 mls @ 200 mls/ hr IVPB 0000,0800,1600 [facility] Last Admin: 07/21/17 09:50 Dose: 100 mls Potassium Chloride 40 meq/ (Sodium Chloride) 270 mls @ 135 mls/hr IVPB ASDIR PRN PRN Reason: FOR SERUM K+ 2.5 - 3.5 Potassium Chloride 40 meq/ (Device) 100 mls @ 50 mls/hr IVPB ASDIR PRN PRN Reason: FOR SERUM K+ 2.5 - 3.5 Last Admin: 07/20/17 05:25 Dose: 100 mls Magnesium Sulfate 1 gm/ Sodium (Chloride) 102 mls @ 102 mls/hr IV PRN PRN PRN Reason: MAG LEVEL 1.4 - 2.0 Magnesium Sulfate 2 gm/ Device 100 mls @ 100 mls/hr IVPB ASDIR PRN PRN Reason: MAGNESIUM < 1.4 Potassium Phosphate 9 mmol/ (Sodium Chloride) 103 mls @ 25.75 mls/hr IVPB ASDIR PRN PRN Reason: Phosphate 1.0-1.8 Potassium Phosphate 12 mmol/ (Sodium Chloride) 254 mls @ 63.5 mls/hr IV ASDIR PRN PRN Reason: Serum phosphate 0.5-0.9 Potassium Phosphate 15 mmol/ (Sodium Chloride) 255 mls @ 63.75 mls/hr IV ASDIR PRN PRN Reason: Serum Phos < 0.5 Sodium Chloride (1/2 Normal Saline) 1,000 mls @ 50 mls/hr IV .Q20H [facility] Last Admin: 07/21/17 08:56 Dose: 1,000 mls Labetalol HCl (Normodyne) 10 mg SLOW IVP Q2H PRN PRN Reason: SBP Greater Than 170 Last Admin: 07/20/17 05:31 Dose: 10 mg Magnesium Oxide (Magnesium Oxide) 400 mg PO BIDPRN PRN PRN Reason: FOR SERUM MAG 1.4 - 2.0 Last Admin: 07/20/17 05:25 Dose: 400 mg Magnesium Oxide (Magnesium Oxide) 800 mg PO PRN PRN PRN Reason: FOR SERUM MAG < 1.4 Miscellaneous Medication (Phos-Nak) 1 pkt PO TIDPRN PRN PRN Reason: FOR PHOS LEVEL 1.0 - 1.8 Miscellaneous Medication (Phos-Nak) 2 pkt PO TIDPRN PRN PRN Reason: FOR PHOS LEVEL 0.5 - 1.0 Morphine Sulfate (Morphine Sulfate) 4 mg SLOW IVP Q4H PRN PRN Reason: Pain Last Admin: 07/20/17 08:06 Dose: 4 mg Ccu Electrolyte (Replacement Protocol) 0 each FS PRN PRN PRN Reason: FOR ELECTROLYTE REPLACEMENT Ondansetron HCl (Zofran) 4 mg IVP Q6H PRN PRN Reason: Nausea/Vomiting Last Admin: 07/19/17 08:26 Dose: 4 mg Oxcarbazepine (Trileptal) 600 mg PO BID [facility] Last Admin: 07/20/17 20:29 Dose: 600 mg Potassium Chloride (K-Dur) 40 meq PO ASDIR PRN PRN Reason: FOR SERUM K+ 2.5 - 3.5 Potassium Chloride (Klor-Con) 40 meq PER TUBE ASDIR PRN PRN Reason: FOR SERUM K+ 2.5-3.5 Promethazine HCl (Phenergan) 12.5 mg IM Q4H PRN PRN Reason: Nausea/Vomiting Propranolol HCl (Inderal) 40 mg PO BID [facility] Last Admin: 07/20/17 20:30 Dose: 40 mg Ropinirole HCl (Requip) 1 mg PO HS [facility] Last Admin: 07/20/17 20:30 Dose: 1 mg Sodium Chloride (Flush - Normal Saline) 10 ml IVF PRN PRN PRN Reason: Saline Flush Ziprasidone (Geodon) 20 mg IM Q12HR PRN PRN Reason: Agitation Last Admin: 07/20/17 14:02 Dose: 20 mg
[2017-07-21] MEDS ORDERED: DC Electrolyte Protocol FS ONE (10:30)
[2017-07-21 12:17] LABS: Prothrombin Time 15.5 SEC (12.0-14.7)
[2017-07-21 12:18] LABS: PTT 47.4 SEC (22.9-36.1)
--- NOTE | 2017-07-21 12:20 | RAD ---
ONE VIEW CHEST: HISTORY: Cough. Possible aspiration. COMPARISON: 07/18/2017 FINDINGS: Stable right-sided central venous catheter. Interval removal of endotracheal and nasogastric tube. Normal cardiac silhouette. Pulmonary vessels and hilum are normal. Costophrenic angles are clear. No masses or consolidation. No pneumothorax on this supine projection. IMPRESSION: No acute cardiopulmonary process. POS: [facility]
[2017-07-21 12:48] LABS: ALT (SGPT) 30 U/L (8-55); AST (SGOT) 111 U/L (5-34); Alkaline Phosphatase 173 U/L (40-150); Anion Gap 15 mmol/L (10-20); BUN (Urea Nitrogen) 41 mg/dL (9.8-20.1); Bilirubin, Total 1.1 mg/dL (0.2-1.2); Calc. Creatinine Clearance 35 mL/min (70-130); Calcium 8.4 mg/dL (7.8-10.44); Carbon Dioxide 21 mmol/L (22-29); Chloride 108 mmol/L (98-107); Cholesterol 98 mg/dl (< 200 Desired); Estimated GFR-MDRD 33; Globulin 2.7 g/dL (2.4-3.5); Magnesium 1.5 mg/dL (1.6-2.6); Phosphorus 4.1 mg/dL (2.3-4.7); Protein, Total 5.3 g/dL (6.0-8.3)
[2017-07-21] MEDS: OXcarbazepine 300 MG TAB PO SCH ×2 (14:18→21:14)
[2017-07-21] MEDS: Famotidine 20 MG TAB PO SCH (14:18)
[2017-07-21] MEDS ORDERED: 1/2 NS w/KCL 20 mEq 1,000 ML IV SCH (15:30)
[2017-07-21] MEDS ORDERED: D5 1/2 NS w/20 mEq KCL 1,000 ML IV SCH (15:30)
[2017-07-21] MEDS ORDERED: Magnesium 2 GM/NS 0.9% 100 ML 2 GM in Premix Bag 1 BAG IVPB SCH (15:45)
--- NOTE | 2017-07-21 17:06 | CON ---
DATE OF CONSULTATION: 07/21/2017 HISTORY OF PRESENT ILLNESS: This is a 56-year-old white female who I was asked to see today by the Hospitalist Service for inability to urinate. She was admitted on the , septic shock with infarc trung colon. She underwent a laparotomy and colectomy and ileostomy/colostomy by Dr. Maldonado that day. She was in the ICU until yesterday. I think she has been started on some liquids. When she came i n on transfer from [place] to our ER, she had a CAT scan done that showed breakdown of the wall of the entire colon with multiple areas of edema, thickening, stranding, and some free fluid. She did not have anything to suggest kidney stones or problems with her kidneys at that time. She had a ca theter in until yesterday, and apparently in the ICU before she was transferred to the floor, she pu lled the catheter out. She has some psychiatric issues, and it is felt that that is probably why gino garibay pulled her catheter out. She did initially urinate, but then did not urinate through the night an d the catheter was replaced for 900 mL this morning. There has not been any blood in the urine, alt zoe the urine was somewhat dark in color. She is currently not able to communicate, and this may be related to her still being somewhat toxic or it may just be related to her psychiatric illness. In any event, her sister is at the bedside, and has stated, as far she knows, she has never had any trouble urinating prior to this morning. PAST SURGICAL HISTORY: Includes prior cholecystectomy and hysterectomy. She had had diverticulitis in the past and actually had a partial colectomy for that. She has had some upper extremity surger y also. MEDICATIONS: Her routine medicines were Cymbalta, trazodone, tramadol, clonazepam, Trileptal, Elavi l, and albuterol. ALLERGIES: She has allergies to CIPRO and IMITREX. PHYSICAL EXAMINATION: Her abdomen is dressed, incision had hanh. She has got a right-sided stom a. She has no vaginal mass, no periurethral mass, no diverticulum, and no blood in the vagina or bl ood at the urethral meatus. Her catheter is draining currently clear urine. LABORATORY: She had a positive blood culture for an E. coli, but otherwise negative. She has not h ad a urinalysis here. White count is slightly elevated at 14.9, hemoglobin was 10.3. Her blood zully mistries, creatinine is 1.6; it was fairly elevated when she came in, and she actually had a Nephrol ogy consult, but that has significantly improved with hydration; I think it was related to dehydrati on and sepsis. She is still not communicating. IMPRESSION: Inability to urinate this morning after removing her catheter with the balloon inflated yesterday. I would plan on leaving this catheter in at least 2 more days, so Monday, 2 days from n ow, we could consider voiding trial. Hopefully, she will have an improvement in her mental status b y that time and certainly will make it easier. Looking at her current medications, she is taking Cy mbalta, Zofran, Trileptal, some Phenergan, Requip, and Geodon, and it is possible some of these may have some role in affecting her ability to empty; however, she was on a number of antipsychotics gareth or to coming in and appeared to be doing okay. I will follow along with you.
[2017-07-21] MEDS: Famotidine/PF 20 mg/2ml Vial SLOW IVP SCH ×2 (21:13→22:39)
[2017-07-21] MEDS: rOPINIRole HCl 1 MG TAB PO SCH (21:14)
[2017-07-21] MEDS: clonazePAM 1 MG TAB PO SCH (21:14)
[2017-07-21] MEDS: Multivitamins, Adult 10 ML, Multitrace-5 5 ML in D30W-AA 10% with Lytes 2,000 ML, Fat E... IV SCH (22:40)
[2017-07-22 05:14] LABS: Anion Gap 13 mmol/L (10-20); BUN (Urea Nitrogen) 35 mg/dL (9.8-20.1); Calc. Creatinine Clearance 48 mL/min (70-130); Calcium 8.1 mg/dL (7.8-10.44); Carbon Dioxide 20 mmol/L (22-29); Chloride 110 mmol/L (98-107); Estimated GFR-MDRD 51; Phosphorus 1.9 mg/dL (2.3-4.7)
[2017-07-22] MEDS: metroNIDAZOLE 500 MG in Premix Bag 1 BAG IVPB SCH ×3 (05:56→21:31)
[2017-07-22] MEDS ORDERED: Potassium Phosphate 20 MMOL in Sodium Chloride 0.9% 250 ML 250 ML IVPB SCH (06:00)
[2017-07-22] MEDS ORDERED: cefTRIAXone\\ROCEPHIN 1 GM in Sodium Chloride 0.9% 100 ML IVPB SCH (08:00)
[2017-07-22] MEDS: Famotidine/PF 20 mg/2ml Vial SLOW IVP SCH ×2 (08:54→20:03)
[2017-07-22] MEDS: OXcarbazepine 300 MG TAB PO SCH ×3 (08:55→20:04)
[2017-07-22] MEDS: Heparin 5,000 UNITS/ML VIAL SC SCH ×2 (08:55→20:18)
[2017-07-22] MEDS ORDERED: Activase 2 MG VIAL CATH SCH (11:15)
[2017-07-22] MEDS ORDERED: Sterile Water 10 ML VIAL IVP SCH (11:15)
[2017-07-22 11:57] LABS: Anion Gap 18 mmol/L (10-20); BUN (Urea Nitrogen) 33 mg/dL (9.8-20.1); Calc. Creatinine Clearance 50 mL/min (70-130); Calcium 8.7 mg/dL (7.8-10.44); Carbon Dioxide 16 mmol/L (22-29); Chloride 116 mmol/L (98-107); Estimated GFR-MDRD 53
--- NOTE | 2017-07-22 12:12 | PDOC.PN ---
- Subjective Encounter Start Date: 07/22/17 Encounter Start Time: 08:45 Subjective: lethargic but awakens easily -: responds well to verbal questions - Objective MAR Reviewed: Yes Vital Signs & Weight: Vital Signs (12 hours) Temp Pulse Resp BP Pulse Ox 07/22/17 11:13 107 H 16 97 07/22/17 08:00 98.3 F 104 H 18 135/85 96 07/22/17 07:32 106 H 15 98 07/22/17 03:29 96 Weight Admit Weight 132 lb 11.492 oz Weight 120 lb 6 oz Most Recent Monitor Data Heart Rate from ECG 77 NIBP 179/106 NIBP BP-Mean 149 Respiration from ECG 24 SpO2 100 I&O: 07/21/17 07/22/17 07/23/17 06:59 06:59 06:59 Intake Total 1840 Output Total 1330 2450 Balance 510 -2450 Result Diagrams: 07/21/17 04:09 07/22/17 11:14 Phys Exam - Physical Examination HEENT: PERRLA, sclera anicteric Neck: no JVD, supple Respiratory: no wheezing, no rales Cardiovascular: RRR, no significant murmur Gastrointestinal: soft, non-tender, no distention, positive bowel sounds colostomy has liq stool in it Musculoskeletal: pulses present Neurological: non-focal, moves all 4 limbs Dx/Plan (1) Sepsis Code(s): A41.9 - SEPSIS, UNSPECIFIED ORGANISM Status: Acute Qualifiers: Sepsis type: Escherichia coli Qualified Code(s): A41.51 - Sepsis due to Escherichia coli [E. coli] (2) S/P left hemicolectomy Code(s): Z90.49 - ACQUIRED ABSENCE OF OTHER SPECIFIED PARTS OF DIGESTIVE TRACT Status: Acute Comment: with tranverse colon colostomy (3) E coli bacteremia Code(s): R78.81 - BACTEREMIA Status: Acute (4) PREET (acute kidney injury) Code(s): N17.9 - ACUTE KIDNEY FAILURE, UNSPECIFIED Status: Acute (5) Metabolic acidosis Code(s): E87.2 - ACIDOSIS Status: Acute (6) Toxic metabolic encephalopathy Code(s): G92 - TOXIC ENCEPHALOPATHY Status: Acute (7) Urinary retention Code(s): R33.9 - RETENTION OF URINE, UNSPECIFIED Status: Acute Comment: s/p jin 07/21 (8) Bipolar disorder Code(s): F31.9 - BIPOLAR DISORDER, UNSPECIFIED Status: Chronic - Plan seems to be more alert and oriented this morning -: speech eval, may start full liq diet -: PT to mobilize patient as tolerated -: is on ceftriaxone and flagyl -: pt to complete 10 day course for e.coli bacteremia unless cdiff ensues * . Review of Systems - Medications/Allergies Allergies/Adverse Reactions: Allergies Allergy/AdvReac Type Severity Reaction Status Date / Time ciprofloxacin [From Cipro] Allergy Verified 07/20/17 02:20 ciprofloxacin HCl Allergy Verified 07/20/17 02:20 [From Cipro] ibuprofen Allergy Verified 07/20/17 02:20 latex Allergy Verified 07/16/17 19:58 sumatriptan [From Imitrex] Allergy Verified 07/20/17 02:20 sumatriptan succinate Allergy Verified 07/20/17 02:20 [From Imitrex] Medications: Current Medications Albuterol/Ipratropium (Duoneb) 3 ml NEB [id number] [facility] Last Admin: 07/22/17 11:13 Dose: 3 ml Alteplase, Recombinant (Cathflo) 4 mg CATH NOW [facility] Stop: 07/22/17 13:15 Last Admin: 07/22/17 11:43 Dose: 2 mg Clonazepam (Klonopin) 1 mg PO QPM [facility] Last Admin: 07/21/17 21:14 Dose: Not Given Clonidine HCl (Catapres) 0.1 mg PO Q4H PRN PRN Reason: Systolic BP > 180 Duloxetine HCl (Cymbalta) 20 mg PO DAILY [facility] Last Admin: 07/22/17 11:58 Dose: 20 mg Famotidine (Pepcid) 20 mg SLOW IVP BID [facility] Last Admin: 07/22/17 08:54 Dose: 20 mg Heparin Sodium (Porcine) (Heparin) 5,000 units SC BID [facility] Last Admin: 07/22/17 08:55 Dose: 5,000 units Hydralazine HCl (Apresoline) 10 mg SLOW IVP Q4H PRN PRN Reason: SBP > 170 or DBP > 100 Last Admin: 07/20/17 14:27 Dose: 10 mg Hydralazine HCl (Apresoline) 5 mg SLOW IVP Q4H PRN PRN Reason: SBP Greater Than 180 Metronidazole 500 mg/ Device 100 mls @ 100 mls/hr IVPB Q8HR [facility] Last Admin: 07/22/17 05:56 Dose: 100 mls Multivitamins 10 ml/ Chromium/Copper/Manganese/Seleni/Zn 5 ml/ Amino Acids/ Electrolytes/Fat Emulsion Intravenous 2,265 mls @ 94.375 mls/hr IV 2200 [facility] Last Admin: 07/21/17 22:40 Dose: 2,265 mls Ceftriaxone Sodium 1 gm/ (Sodium Chloride) 100 mls @ 200 mls/hr IVPB 0800 [facility] Last Admin: 07/22/17 08:56 Dose: 100 mls Labetalol HCl (Normodyne) 10 mg SLOW IVP Q2H PRN PRN Reason: SBP Greater Than 170 Last Admin: 07/20/17 05:31 Dose: 10 mg Morphine Sulfate (Morphine Sulfate) 4 mg SLOW IVP Q4H PRN PRN Reason: Pain Last Admin: 07/22/17 02:43 Dose: 4 mg Ondansetron HCl (Zofran) 4 mg IVP Q6H PRN PRN Reason: Nausea/Vomiting Last Admin: 07/19/17 08:26 Dose: 4 mg Oxcarbazepine (Trileptal) 600 mg PO BID [facility] Last Admin: 07/22/17 11:47 Dose: 600 mg Promethazine HCl (Phenergan) 12.5 mg IM Q4H PRN PRN Reason: Nausea/Vomiting Propranolol HCl (Inderal) 40 mg PO BID [facility] Last Admin: 07/22/17 11:43 Dose: 40 mg Ropinirole HCl (Requip) 1 mg PO HS [facility] Last Admin: 07/21/17 21:14 Dose: Not Given Sodium Chloride (Flush - Normal Saline) 10 ml IVF PRN PRN PRN Reason: Saline Flush Sterile Water (Water For Injection) 20 ml IVP ONE [facility] Stop: 07/22/17 13:45 Ziprasidone (Geodon) 20 mg IM Q12HR PRN PRN Reason: Agitation Last Admin: 07/20/17 14:02 Dose: 20 mg
--- NOTE | 2017-07-22 16:12 | PRG ---
DATE OF SERVICE: 07/22/2017 SUBJECTIVE: Ms. Ricardo was evaluated today. She had no complaints. OBJECTIVE: VITAL SIGNS: She is afebrile, heart rate 104, respiratory rate is 18, oximetry is 96, blood pressur e 135/85. LUNGS: Clear. HEART: Regular rhythm. ABDOMEN: Mildly tender. LABORATORY DATA: Sodium 145, potassium 5.1, chloride 116, bicarbonate 16, BUN 33, creatinine 1.07, glucose 209. She is still receiving TPN. Her albumin yesterday was 2.6. I met with family and answered all their questions. Ms. Ricardo would not put her phone down, stop t exting while I was trying to evaluate her and talk to her family. IMPRESSION: 1. Status post hemicolectomy for bowel. One blood culture grew out Escherichia coli. She rem ains on Rocephin. She appears to be clinically stable.
[2017-07-22] MEDS: rOPINIRole HCl 1 MG TAB PO SCH (20:03)
[2017-07-22] MEDS: clonazePAM 1 MG TAB PO SCH (20:05)
[2017-07-22] MEDS: Ondansetron HCl/PF 4 MG/2 ML Vial IVP PRN (20:16)
[2017-07-22] MEDS: Pregabalin 50 MG CAP PO SCH ×2 (22:40→22:49)
[2017-07-22] MEDS: Multivitamins, Adult 10 ML, Multitrace-5 5 ML in D30W-AA 10% with Lytes 2,000 ML, Fat E... IV SCH (22:50)
[2017-07-23] MEDS: Ondansetron HCl/PF 4 MG/2 ML Vial IVP PRN ×3 (04:05→22:42)
[2017-07-23] MEDS ORDERED: ISOVUE-370 76%-LOCM 1 ML ONE (04:08)
[2017-07-23] MEDS: metroNIDAZOLE 500 MG in Premix Bag 1 BAG IVPB SCH (04:41)
[2017-07-23 07:10] LABS: Anion Gap 11 mmol/L (10-20); BUN (Urea Nitrogen) 24 mg/dL (9.8-20.1); Calc. Creatinine Clearance 69 mL/min (70-130); Calcium 8.3 mg/dL (7.8-10.44); Carbon Dioxide 24 mmol/L (22-29); Chloride 107 mmol/L (98-107); Estimated GFR-MDRD 77
[2017-07-23] MEDS: Potassium Chloride 20 MEQ TAB PO SCH ×4 (08:46→21:39)
[2017-07-23] MEDS: OXcarbazepine 300 MG TAB PO SCH ×2 (08:46→21:40)
[2017-07-23] MEDS: Famotidine 20 MG TAB PO SCH ×2 (08:47→21:40)
[2017-07-23] MEDS: Sulfameth/Trimethoprim DS 800-160mg TAB PO SCH ×2 (08:47→21:40)
[2017-07-23] MEDS: metroNIDAZOLE 500 MG TAB PO SCH ×4 (08:48→21:40)
[2017-07-23] MEDS: Heparin 5,000 UNITS/ML VIAL SC SCH ×2 (08:48→21:30)
[2017-07-23] MEDS ORDERED: Metoprolol Tartrate 25 MG TAB PO SCH (09:00)
[2017-07-23 10:05] LABS: Band 7 % (5-11); Hematocrit 18.9 % (36.0-47.0); Mean Platelet Volume 8.9 fL (7.4-10.4); Metamyelocyte 2 % (0-0); Myelocyte 1 % (0-0); Neutrophil 73 % (42-75); Nucleated RBC 2 % (0); Red Blood Cell (RBC) Count 1.86 mill/uL (4.20-5.40); White Blood Cell (WBC) Count 23.3 thou/uL (4.8-10.8)
--- NOTE | 2017-07-23 12:57 | PDOC.PN ---
- Subjective Encounter Start Date: 07/23/17 Encounter Start Time: 10:00 Subjective: is sitting in chair -: eating 50% of her diet now -: responds to verbal questions - Objective MAR Reviewed: Yes Vital Signs & Weight: Vital Signs (12 hours) Temp Pulse Resp BP Pulse Ox 07/23/17 10:34 88 16 92 L 07/23/17 08:00 98.4 F 88 16 123/82 93 L 07/23/17 07:00 94 18 93 L 07/23/17 01:50 96 Weight Admit Weight 132 lb 11.492 oz Weight 120 lb 6 oz Most Recent Monitor Data Heart Rate from ECG 77 NIBP 179/106 NIBP BP-Mean 149 Respiration from ECG 24 SpO2 100 I&O: 07/22/17 07/23/17 07/24/17 06:59 06:59 06:59 Intake Total 1697 Output Total 2450 1900 Balance -2450 -203 Result Diagrams: 07/23/17 05:39 07/23/17 05:39 Phys Exam - Physical Examination HEENT: PERRLA, sclera anicteric Neck: no JVD, supple Respiratory: no wheezing, no rales Cardiovascular: RRR, no significant murmur Gastrointestinal: soft, no distention, positive bowel sounds colostomy+ Musculoskeletal: no edema, pulses present Neurological: non-focal, moves all 4 limbs Dx/Plan (1) Sepsis Code(s): A41.9 - SEPSIS, UNSPECIFIED ORGANISM Status: Acute Qualifiers: Sepsis type: Escherichia coli Qualified Code(s): A41.51 - Sepsis due to Escherichia coli [E. coli] (2) S/P left hemicolectomy Code(s): Z90.49 - ACQUIRED ABSENCE OF OTHER SPECIFIED PARTS OF DIGESTIVE TRACT Status: Acute Comment: with tranverse colon colostomy (3) E coli bacteremia Code(s): R78.81 - BACTEREMIA Status: Acute (4) PREET (acute kidney injury) Code(s): N17.9 - ACUTE KIDNEY FAILURE, UNSPECIFIED Status: Acute (5) Metabolic acidosis Code(s): E87.2 - ACIDOSIS Status: Acute (6) Toxic metabolic encephalopathy Code(s): G92 - TOXIC ENCEPHALOPATHY Status: Acute (7) Urinary retention Code(s): R33.9 - RETENTION OF URINE, UNSPECIFIED Status: Acute Comment: s/p jin 07/21, removed 07/23/17 (8) Bipolar disorder Code(s): F31.9 - BIPOLAR DISORDER, UNSPECIFIED Status: Chronic (9) Acute blood loss anemia Code(s): D62 - ACUTE POSTHEMORRHAGIC ANEMIA Status: Acute - Plan repeat cbc and cmp now -: if Hb less than 7g, transfuse 2 units -: replace oral potassium -: may taper TPN and encourage po intake -: home meds for underlying mood/bipolar disorder * . Review of Systems - Medications/Allergies Allergies/Adverse Reactions: Allergies Allergy/AdvReac Type Severity Reaction Status Date / Time ciprofloxacin [From Cipro] Allergy Verified 07/20/17 02:20 ciprofloxacin HCl Allergy Verified 07/20/17 02:20 [From Cipro] ibuprofen Allergy Verified 07/20/17 02:20 latex Allergy Verified 07/16/17 19:58 sumatriptan [From Imitrex] Allergy Verified 07/20/17 02:20 sumatriptan succinate Allergy Verified 07/20/17 02:20 [From Imitrex] Medications: Current Medications Albuterol/Ipratropium (Duoneb) 3 ml NEB [id number] [facility] Last Admin: 07/23/17 10:34 Dose: 3 ml Clonazepam (Klonopin) 1 mg PO QPM [facility] Last Admin: 07/22/17 20:05 Dose: 1 mg Clonidine HCl (Catapres) 0.1 mg PO Q4H PRN PRN Reason: Systolic BP > 180 Duloxetine HCl (Cymbalta) 20 mg PO DAILY [facility] Last Admin: 07/23/17 08:47 Dose: 20 mg Famotidine (Pepcid) 20 mg PO BID [facility] Last Admin: 07/23/17 08:47 Dose: 20 mg Heparin Sodium (Porcine) (Heparin) 5,000 units SC BID [facility] Last Admin: 07/23/17 08:48 Dose: 5,000 units Hydralazine HCl (Apresoline) 10 mg SLOW IVP Q4H PRN PRN Reason: SBP > 170 or DBP > 100 Last Admin: 07/20/17 14:27 Dose: 10 mg Hydralazine HCl (Apresoline) 5 mg SLOW IVP Q4H PRN PRN Reason: SBP Greater Than 180 Multivitamins 10 ml/ Chromium/Copper/Manganese/Seleni/Zn 5 ml/ Amino Acids/ Electrolytes/Fat Emulsion Intravenous 2,265 mls @ 94.375 mls/hr IV 2200 [facility] Last Admin: 07/22/17 22:50 Dose: 2,265 mls Labetalol HCl (Normodyne) 10 mg SLOW IVP Q2H PRN PRN Reason: SBP Greater Than 170 Last Admin: 07/20/17 05:31 Dose: 10 mg Metronidazole (Flagyl) 500 mg PO TID [facility] Last Admin: 07/23/17 08:48 Dose: 500 mg Morphine Sulfate (Morphine Sulfate) 4 mg SLOW IVP Q4H PRN PRN Reason: Pain Last Admin: 07/23/17 04:05 Dose: 4 mg Ondansetron HCl (Zofran) 4 mg IVP Q6H PRN PRN Reason: Nausea/Vomiting Last Admin: 07/23/17 09:49 Dose: 4 mg Oxcarbazepine (Trileptal) 600 mg PO BID [facility] Last Admin: 07/23/17 08:46 Dose: 600 mg Potassium Chloride (K-Dur) 40 meq PO 0300,0900,1500,2100 [facility] Stop: 07/24/17 09:01 Last Admin: 07/23/17 08:46 Dose: 40 meq Promethazine HCl (Phenergan) 12.5 mg IM Q4H PRN PRN Reason: Nausea/Vomiting Propranolol HCl (Inderal) 40 mg PO BID [facility] Last Admin: 07/23/17 08:48 Dose: 40 mg Ropinirole HCl (Requip) 1 mg PO HS [facility] Last Admin: 07/22/17 20:03 Dose: 1 mg Sodium Chloride (Flush - Normal Saline) 10 ml IVF PRN PRN PRN Reason: Saline Flush Sodium Chloride (Flush - Normal Saline) 10 ml IVF PRN PRN PRN Reason: Saline Flush Trimethoprim/Sulfamethoxazole (Bactrim Ds) 1 tab PO BID [facility] Last Admin: 07/23/17 08:47 Dose: 1 tab Ziprasidone (Geodon) 20 mg IM Q12HR PRN PRN Reason: Agitation Last Admin: 07/20/17 14:02 Dose: 20 mg
[2017-07-23 13:22] LABS: Hematocrit 19.3 % (36.0-47.0); Mean Platelet Volume 8.3 fL (7.4-10.4); Red Blood Cell (RBC) Count 1.92 mill/uL (4.20-5.40); White Blood Cell (WBC) Count 30.5 thou/uL (4.8-10.8)
[2017-07-23 13:37] LABS: Band 12 % (5-11); Macrocytosis SLIGHT = 6-15 cells (100X) (0-5/hpf); Metamyelocyte 2 % (0-0); Neutrophil 57 % (42-75); Nucleated RBC 4 % (0); Polychromasia SLIGHT = 2-3 cells (100X) (0-2/hpf); Schistocytes SLIGHT = 2-5 cells (100X) (0-1/hpf)
[2017-07-23 13:38] LABS: ALT (SGPT) 20 U/L (8-55); AST (SGOT) 58 U/L (5-34); Alkaline Phosphatase 126 U/L (40-150); Anion Gap 13 mmol/L (10-20); BUN (Urea Nitrogen) 25 mg/dL (9.8-20.1); Bilirubin, Total 0.5 mg/dL (0.2-1.2); Calc. Creatinine Clearance 69 mL/min (70-130); Calcium 8.9 mg/dL (7.8-10.44); Carbon Dioxide 25 mmol/L (22-29); Chloride 106 mmol/L (98-107); Estimated GFR-MDRD 77; Globulin 3.4 g/dL (2.4-3.5); Protein, Total 6.2 g/dL (6.0-8.3)
--- NOTE | 2017-07-23 15:32 | PRG ---
DATE OF SERVICE: 07/23/2017 SUBJECTIVE: Ms. Ricardo is in a better mood today. She is more engaging. She says she has been out of bed, walking in the room and sitting in the chair. She said her sales management intern came to see her which gino garibay said helped tremendously. OBJECTIVE: VITAL SIGNS: She is afebrile, heart rate is 86, respiratory rate is 16, oximetry is 93%, and blood pressure 123/82. LUNGS: Clear. HEART: Regular rhythm. ABDOMEN: Less tender and less distended. LABORATORY DATA: White count is 30.5, hemoglobin 6.3, and platelets 391,000. Electrolytes are norm al. BUN is 25 and creatinine is 0.7. I would defer to surgery, but I would think she would need a transfusion. She appears to be stable at this point in time.
[2017-07-23] MEDS: Sodium Chloride 0.9% 1,000 ML IV SCH ×2 (15:33→22:35)
[2017-07-23] MEDS: Piperacillin/Tazobactam 3.375 GM in Sodium Chloride 0.9% 100 ML IVPB SCH ×2 (18:06→23:02)
--- NOTE | 2017-07-23 18:39 | CT ---
CT ABDOMEN AND PELVIS WITH IV CONTRAST: History: Status post colostomy one week ago, abdominal pain, elevated white count. FINDINGS: Comparison is made with noncontrast study of 07-16-17. Interval change of right lower quadrant colostomy is seen. There are foci of free air in the right a nterior abdominal wall adjacent to the colostomy. Intermedullary changes are also seen in this regio n. There are mild dependent changes in the lung bases. A 1.7 cm cyst in the right lobe of the liver is again seen. The patient is post cholecystectomy. Small low density lesions, likely cysts, in the rig ht lobe of the liver are again seen. The spleen, pancreas, adrenal glands, and kidneys are unremarkable. There is a 15 mm fluid collection/cystic mass along the anteromedial surface of the spleen between t he spleen and stomach. In the region between the pancreas and spleen there is a complex collection extending inferiorly int o the pericolic gutter containing air, soft tissue, and fluid measuring 6.5 x 3.6 x 5.5 cm. There are tiny foci of free air in the deep pelvis and a small amount of free fluid in the pelvis, p articularly in the presacral space. The urinary bladder is well distended with a tiny focus of air in the nondependent portion on the le ft. A tiny amount of free intraperitoneal air is seen under the anterior abdominal wall in the lower abd omen. IMPRESSION: 1. Complex fluid collection in the left upper quadrant. A developing abscess should be considered. 2. Small foci of free air in the pelvis and in the right anterior abdominal wall in the region of th e colostomy may represent post op changes. Clinical correlation is recommended. 3. Tiny of focus of air in the urinary bladder likely due to recent instrumentation. Clinical correl ation is recommended. 4. Nonspecific 15 mm fluid collection in the gastrohepatic space. Discussed over the telephone with Dr. Juan Maldonado at 6:30 p.m. Code CR POS: [facility]
[2017-07-23 19:42] LABS: Bilirubin Negative (Negative); Blood, Urine Small (Negative); Glucose, Urine (Dipstick) 500 mg/dL (Negative); Ketone, Urine Negative (Negative); Nitrite Negative (Negative); Protein, Urine (Dipstick) Trace mg/dL (Neg-Trace); Urobilinogen 0.2 mg/dL (0.2-1.0)
[2017-07-23 19:44] LABS: Bacteria/HPF None Seen HPF (None Seen); Hyaline Casts/LPF 0-3 HYALINE CAST LPF (0-3 Hyaline); Squamous Epithelial 0-3 HPF (0-3); WBC/HPF 0-3 HPF (0-3)
[2017-07-23 19:53] LABS: Yeast-All Forms 1+ HPF (None Seen)
[2017-07-23] MEDS ORDERED: Ciprofloxacin 500 MG TAB PO SCH (20:00)
[2017-07-23] MEDS: clonazePAM 1 MG TAB PO SCH (21:39)
[2017-07-23] MEDS: rOPINIRole HCl 1 MG TAB PO SCH (21:40)
[2017-07-23] MEDS: Multivitamins, Adult 10 ML, Multitrace-5 5 ML in D30W-AA 10% with Lytes 2,000 ML, Fat E... IV SCH (22:36)
[2017-07-24] MEDS: Potassium Chloride 20 MEQ TAB PO SCH ×2 (04:17→10:27)
[2017-07-24] MEDS: Ondansetron HCl/PF 4 MG/2 ML Vial IVP PRN ×2 (04:37→20:55)
[2017-07-24] MEDS: Sodium Chloride 0.9% 1,000 ML IV SCH ×3 (04:37→20:57)
[2017-07-24] MEDS: Piperacillin/Tazobactam 3.375 GM in Sodium Chloride 0.9% 100 ML IVPB SCH ×3 (04:41→17:29)
[2017-07-24 06:33] LABS: Anion Gap 10 mmol/L (10-20); BUN (Urea Nitrogen) 20 mg/dL (9.8-20.1); Calc. Creatinine Clearance 76 mL/min (70-130); Calcium 8.2 mg/dL (7.8-10.44); Carbon Dioxide 23 mmol/L (22-29); Chloride 108 mmol/L (98-107); Estimated GFR-MDRD 86
[2017-07-24 07:06] LABS: Anisocytosis MODERATE=16-30 cells (100X) (0-5/hpf); Band 18 % (5-11); Hematocrit 26.1 % (36.0-47.0); Macrocytosis SLIGHT = 6-15 cells (100X) (0-5/hpf); Mean Platelet Volume 8.8 fL (7.4-10.4); Metamyelocyte 2 % (0-0); Myelocyte 2 % (0-0); Neutrophil 54 % (42-75); Polychromasia SLIGHT = 2-3 cells (100X) (0-2/hpf); Reactive Lymphocytes 4 % (0-10); Red Blood Cell (RBC) Count 2.81 mill/uL (4.20-5.40); Schistocytes SLIGHT = 2-5 cells (100X) (0-1/hpf); White Blood Cell (WBC) Count 19.7 thou/uL (4.8-10.8)
--- NOTE | 2017-07-24 10:04 | PRG ---
DATE OF SERVICE: 07/24/2017 SUBJECTIVE: Seem to be doing well, but she has got slightly confused. PHYSICAL EXAMINATION: VITAL SIGNS: Temperature 98.2, pulse 83, respirations 14, O2 sat 94%, blood pressure 122/75. HEENT: Unremarkable. NECK: No JVD. CHEST: Fairly clear. CARDIAC: S1 and S2 regular. ABDOMEN: Surgical scar healing well. Colostomy looks okay. EXTREMITIES: No edema. LABORATORY DATA: White blood cell count 19.7, hematocrit 26.1, and platelet count 331. Sodium 137, potassium 3.5, chloride 108, CO2 23, BUN 20, creatinine 0.7, and glucose 197. ASSESSMENT: 1. Status post laparotomy for bowel. 2. Status post colostomy. PLAN: Overall, seems to be getting better with a diminishing white blood cell count. She does cont inue on IV antibiotics. Current pulmonary status is stable. I will be happy to continue following along, but at this time I do not have much to add to the current care.
[2017-07-24] MEDS: Famotidine 20 MG TAB PO SCH ×2 (10:22→20:56)
[2017-07-24] MEDS: OXcarbazepine 300 MG TAB PO SCH ×2 (10:26→20:56)
[2017-07-24] MEDS: metroNIDAZOLE 500 MG TAB PO SCH ×3 (10:26→20:56)
[2017-07-24] MEDS: Heparin 5,000 UNITS/ML VIAL SC SCH ×2 (10:34→20:55)
--- NOTE | 2017-07-24 13:37 | PDOC.PN ---
- Subjective Encounter Start Date: 07/24/17 Encounter Start Time: 09:00 Subjective: no nausea or sob -: has mild abd pain at surgical site - Objective MAR Reviewed: Yes Vital Signs & Weight: Vital Signs (12 hours) Temp Pulse Resp BP Pulse Ox 07/24/17 09:30 88 16 94 L 07/24/17 08:00 98.5 F 88 16 94 L 07/24/17 07:26 98.5 F 88 16 122/82 93 L 07/24/17 06:18 83 14 94 L 07/24/17 02:52 95 Weight Admit Weight 132 lb 11.492 oz Weight 120 lb 6 oz Most Recent Monitor Data Heart Rate from ECG 77 NIBP 179/106 NIBP BP-Mean 149 Respiration from ECG 24 SpO2 100 I&O: 07/23/17 07/24/17 07/25/17 06:59 06:59 06:59 Intake Total 1697 2483 Output Total 1900 2950 Balance -203 -467 Result Diagrams: 07/24/17 05:41 07/24/17 05:41 Additional Labs: Accuchecks 07/24/17 07/24/17 07/23/17 11:31 04:50 20:01 POC Glucose 250 H 207 H 180 H Phys Exam - Physical Examination HEENT: PERRLA dry mucosa Neck: no JVD, supple Respiratory: no wheezing, no rales Cardiovascular: RRR, no significant murmur Gastrointestinal: soft, no distention, positive bowel sounds colostomy has stool, jin in place Musculoskeletal: no edema, pulses present Neurological: non-focal, moves all 4 limbs Dx/Plan (1) Sepsis Code(s): A41.9 - SEPSIS, UNSPECIFIED ORGANISM Status: Acute Qualifiers: Sepsis type: Escherichia coli Qualified Code(s): A41.51 - Sepsis due to Escherichia coli [E. coli] (2) S/P left hemicolectomy Code(s): Z90.49 - ACQUIRED ABSENCE OF OTHER SPECIFIED PARTS OF DIGESTIVE TRACT Status: Acute Comment: with tranverse colon colostomy (3) E coli bacteremia Code(s): R78.81 - BACTEREMIA Status: Acute Comment: sec to ischemic bowel and peritonitis (4) PREET (acute kidney injury) Code(s): N17.9 - ACUTE KIDNEY FAILURE, UNSPECIFIED Status: Resolved (5) Metabolic acidosis Code(s): E87.2 - ACIDOSIS Status: Acute (6) Toxic metabolic encephalopathy Code(s): G92 - TOXIC ENCEPHALOPATHY Status: Acute Comment: resolving (7) Urinary retention Code(s): R33.9 - RETENTION OF URINE, UNSPECIFIED Status: Acute Comment: s/p jin 07/21 (8) Bipolar disorder Code(s): F31.9 - BIPOLAR DISORDER, UNSPECIFIED Status: Chronic (9) Acute blood loss anemia Code(s): D62 - ACUTE POSTHEMORRHAGIC ANEMIA Status: Acute - Plan recieved 2 units prbc's yesterday -: has [id number] complex fluid near pancreas and spleen -: not sure if above is amenable for CT guided aspiration -: wbc down to 19, had some margination as well, is on iv fluids -: on zosyn and flagyl, hypokalemia is better, Continue TPN * . Review of Systems - Medications/Allergies Allergies/Adverse Reactions: Allergies Allergy/AdvReac Type Severity Reaction Status Date / Time ciprofloxacin [From Cipro] Allergy Verified 07/20/17 02:20 ciprofloxacin HCl Allergy Verified 07/20/17 02:20 [From Cipro] ibuprofen Allergy Verified 07/20/17 02:20 latex Allergy Verified 07/16/17 19:58 sumatriptan [From Imitrex] Allergy Verified 07/20/17 02:20 sumatriptan succinate Allergy Verified 07/20/17 02:20 [From Imitrex] Medications: Current Medications Albuterol/Ipratropium (Duoneb) 3 ml NEB [id number] [facility] Last Admin: 07/24/17 09:30 Dose: 3 ml Clonazepam (Klonopin) 1 mg PO QPM [facility] Last Admin: 07/23/17 21:39 Dose: 1 mg Clonidine HCl (Catapres) 0.1 mg PO Q4H PRN PRN Reason: Systolic BP > 180 Duloxetine HCl (Cymbalta) 20 mg PO DAILY [facility] Last Admin: 07/23/17 08:47 Dose: 20 mg Famotidine (Pepcid) 20 mg PO BID [facility] Last Admin: 07/24/17 10:22 Dose: 20 mg Heparin Sodium (Porcine) (Heparin) 5,000 units SC BID [facility] Last Admin: 07/24/17 10:34 Dose: 5,000 units Hydralazine HCl (Apresoline) 10 mg SLOW IVP Q4H PRN PRN Reason: SBP > 170 or DBP > 100 Last Admin: 07/20/17 14:27 Dose: 10 mg Hydralazine HCl (Apresoline) 5 mg SLOW IVP Q4H PRN PRN Reason: SBP Greater Than 180 Multivitamins 10 ml/ Chromium/Copper/Manganese/Seleni/Zn 5 ml/ Amino Acids/ Electrolytes/Fat Emulsion Intravenous 2,265 mls @ 94.375 mls/hr IV 2200 [facility] Last Admin: 07/23/17 22:36 Dose: 2,265 mls Sodium Chloride (Normal Saline 0.9%) 1,000 mls @ 125 mls/hr IV .Q8H [facility] Last Admin: 07/24/17 11:52 Dose: 1,000 mls Piperacillin Sod/Tazobactam (Sod 3.375 gm/ Sodium Chloride) 100 mls @ 200 mls/ hr IVPB Q6HR [facility] Last Admin: 07/24/17 11:52 Dose: 100 mls Labetalol HCl (Normodyne) 10 mg SLOW IVP Q2H PRN PRN Reason: SBP Greater Than 170 Last Admin: 07/20/17 05:31 Dose: 10 mg Metronidazole (Flagyl) 500 mg PO TID [facility] Last Admin: 07/24/17 10:26 Dose: 500 mg Morphine Sulfate (Morphine Sulfate) 4 mg SLOW IVP Q4H PRN PRN Reason: Pain Last Admin: 07/24/17 11:55 Dose: 4 mg Ondansetron HCl (Zofran) 4 mg IVP Q6H PRN PRN Reason: Nausea/Vomiting Last Admin: 07/24/17 04:37 Dose: 4 mg Oxcarbazepine (Trileptal) 600 mg PO BID [facility] Last Admin: 07/24/17 10:26 Dose: 600 mg Promethazine HCl (Phenergan) 12.5 mg IM Q4H PRN PRN Reason: Nausea/Vomiting Propranolol HCl (Inderal) 40 mg PO BID [facility] Last Admin: 07/24/17 10:27 Dose: 40 mg Ropinirole HCl (Requip) 1 mg PO HS [facility] Last Admin: 07/23/17 21:40 Dose: 1 mg Sodium Chloride (Flush - Normal Saline) 10 ml IVF PRN PRN PRN Reason: Saline Flush Ziprasidone (Geodon) 20 mg IM Q12HR PRN PRN Reason: Agitation Last Admin: 07/20/17 14:02 Dose: 20 mg
[2017-07-24] MEDS: rOPINIRole HCl 1 MG TAB PO SCH (20:56)
[2017-07-24] MEDS: clonazePAM 1 MG TAB PO SCH (20:56)
[2017-07-24] MEDS: Multivitamins, Adult 10 ML, Multitrace-5 5 ML in D30W-AA 10% with Lytes 2,000 ML, Fat E... IV SCH (22:08)
[2017-07-25] MEDS: Piperacillin/Tazobactam 3.375 GM in Sodium Chloride 0.9% 100 ML IVPB SCH ×5 (00:53→23:50)
[2017-07-25] MEDS: Sodium Chloride 0.9% 1,000 ML IV SCH ×3 (04:36→20:37)
[2017-07-25] MEDS: Ondansetron HCl/PF 4 MG/2 ML Vial IVP PRN (04:42)
[2017-07-25 05:04] LABS: Band 5 % (5-11); Hematocrit 28.8 % (36.0-47.0); Mean Platelet Volume 8.4 fL (7.4-10.4); Metamyelocyte 3 % (0-0); Neutrophil 64 % (42-75); White Blood Cell (WBC) Count 21.2 thou/uL (4.8-10.8)
[2017-07-25 05:17] LABS: Anion Gap 12 mmol/L (10-20); BUN (Urea Nitrogen) 17 mg/dL (9.8-20.1); Calc. Creatinine Clearance 74 mL/min (70-130); Calcium 8.7 mg/dL (7.8-10.44); Carbon Dioxide 20 mmol/L (22-29); Chloride 107 mmol/L (98-107); Estimated GFR-MDRD 83
--- NOTE | 2017-07-25 07:44 | PRG ---
DATE OF SERVICE: 07/25/2017 SUBJECTIVE: Patient is doing reasonably well. She has some abdominal pain. PHYSICAL EXAMINATION: VITAL SIGNS: On exam, temperature 97.8, pulse 81, respirations 16, O2 sat 97%, blood pressure 136/9 0. HEENT: Unremarkable. NECK: No JVD. LUNGS: Clear. CARDIAC: S1 and S2 regular. ABDOMEN: Surgical site looks okay. EXTREMITIES: No edema. LABORATORY DATA: White blood cell count 21.2, hematocrit 28.8, platelet count 394. Sodium 135, pot assium 3.8, chloride 107, CO2 20, BUN 17, creatinine 0.7, glucose 204. ASSESSMENT: 1. Status post laparotomy for bowel. 2. Possibility of developing abscess in her abdomen per CT. 3. Persistently elevated white blood cell count. PLAN: At some point, she may have to be re-imaged. Pulmonary status remains stable and she continu es to be on antibiotics.
[2017-07-25] MEDS: Heparin 5,000 UNITS/ML VIAL SC SCH ×2 (08:06→20:36)
[2017-07-25] MEDS: Famotidine 20 MG TAB PO SCH ×2 (08:07→20:36)
[2017-07-25] MEDS: metroNIDAZOLE 500 MG TAB PO SCH ×3 (08:07→20:36)
[2017-07-25] MEDS: OXcarbazepine 300 MG TAB PO SCH ×2 (08:07→20:36)
--- NOTE | 2017-07-25 10:59 | PDOC.PN ---
- Subjective Encounter Start Date: 07/25/17 Encounter Start Time: 09:00 Subjective: c/o right lower quadrant abd pain, no nausea -: is tolerating liq diet -: responds well to verbal questions - Objective MAR Reviewed: Yes Vital Signs & Weight: Vital Signs (12 hours) Temp Pulse Resp BP Pulse Ox 07/25/17 10: 85 16 97 07/25/17 08:00 98.2 F 77 16 07/25/17 07:55 98.2 F 77 16 150/95 H 96 07/25/17 06:39 81 16 97 Weight Admit Weight 132 lb 11.492 oz Weight 120 lb 6 oz Most Recent Monitor Data Heart Rate from ECG 77 NIBP 179/106 NIBP BP-Mean 149 Respiration from ECG 24 SpO2 100 I&O: 07/24/17 07/25/17 07/26/17 06:59 06:59 06:59 Intake Total 2483 1783 Output Total 2950 4850 Balance -248 -1319 Result Diagrams: 07/25/17 03:52 07/25/17 03:52 Additional Labs: Accuchecks 07/25/17 07/24/17 07/24/17 04:40 20:00 15:53 POC Glucose 222 H 233 H 262 H 07/24/17 11:31 POC Glucose 250 H Phys Exam - Physical Examination HEENT: PERRLA, moist MMs Neck: no JVD, supple Respiratory: no wheezing, no rales Cardiovascular: RRR, no significant murmur Gastrointestinal: soft, no distention, positive bowel sounds no rigidity, surgical site is clean, hanh stable Musculoskeletal: no edema, pulses present Neurological: non-focal, moves all 4 limbs Dx/Plan (1) Sepsis Code(s): A41.9 - SEPSIS, UNSPECIFIED ORGANISM Status: Acute Qualifiers: Sepsis type: Escherichia coli Qualified Code(s): A41.51 - Sepsis due to Escherichia coli [E. coli] (2) S/P left hemicolectomy Code(s): Z90.49 - ACQUIRED ABSENCE OF OTHER SPECIFIED PARTS OF DIGESTIVE TRACT Status: Acute Comment: with tranverse colon colostomy (3) E coli bacteremia Code(s): R78.81 - BACTEREMIA Status: Acute Comment: sec to ischemic bowel and peritonitis (4) PREET (acute kidney injury) Code(s): N17.9 - ACUTE KIDNEY FAILURE, UNSPECIFIED Status: Resolved (5) Metabolic acidosis Code(s): E87.2 - ACIDOSIS Status: Acute (6) Toxic metabolic encephalopathy Code(s): G92 - TOXIC ENCEPHALOPATHY Status: Acute Comment: resolving (7) Urinary retention Code(s): R33.9 - RETENTION OF URINE, UNSPECIFIED Status: Acute Comment: s/p jin 07/21 (8) Bipolar disorder Code(s): F31.9 - BIPOLAR DISORDER, UNSPECIFIED Status: Chronic (9) Acute blood loss anemia Code(s): D62 - ACUTE POSTHEMORRHAGIC ANEMIA Status: Acute Comment: recieved 2 u PRBC on 07/23/2017 - Plan wbc around 20, is on zosyn -: tolerating liq diet -: to ambulate with PT in hallway as tolerated -: cognitively has improved with occasional confusion/talking -: has complex fluid in abd, mgmt per gen surgery, is too small to drain * . Review of Systems - Medications/Allergies Allergies/Adverse Reactions: Allergies Allergy/AdvReac Type Severity Reaction Status Date / Time ciprofloxacin [From Cipro] Allergy Verified 07/20/17 02:20 ciprofloxacin HCl Allergy Verified 07/20/17 02:20 [From Cipro] ibuprofen Allergy Verified 07/20/17 02:20 latex Allergy Verified 07/16/17 19:58 sumatriptan [From Imitrex] Allergy Verified 07/20/17 02:20 sumatriptan succinate Allergy Verified 07/20/17 02:20 [From Imitrex] Medications: Current Medications Albuterol/Ipratropium (Duoneb) 3 ml NEB [id number] [facility] Last Admin: 07/25/17 10:17 Dose: 3 ml Clonazepam (Klonopin) 1 mg PO QPM [facility] Last Admin: 07/24/17 20:56 Dose: 1 mg Clonidine HCl (Catapres) 0.1 mg PO Q4H PRN PRN Reason: Systolic BP > 180 Duloxetine HCl (Cymbalta) 20 mg PO DAILY [facility] Last Admin: 07/25/17 08:07 Dose: 20 mg Famotidine (Pepcid) 20 mg PO BID [facility] Last Admin: 07/25/17 08:07 Dose: 20 mg Heparin Sodium (Porcine) (Heparin) 5,000 units SC BID [facility] Last Admin: 07/25/17 08:06 Dose: 5,000 units Hydralazine HCl (Apresoline) 10 mg SLOW IVP Q4H PRN PRN Reason: SBP > 170 or DBP > 100 Last Admin: 07/20/17 14:27 Dose: 10 mg Hydralazine HCl (Apresoline) 5 mg SLOW IVP Q4H PRN PRN Reason: SBP Greater Than 180 Multivitamins 10 ml/ Chromium/Copper/Manganese/Seleni/Zn 5 ml/ Amino Acids/ Electrolytes/Fat Emulsion Intravenous 2,265 mls @ 94.375 mls/hr IV 2200 [facility] Last Admin: 07/24/17 22:08 Dose: 2,265 mls Sodium Chloride (Normal Saline 0.9%) 1,000 mls @ 125 mls/hr IV .Q8H [facility] Last Admin: 07/25/17 04:36 Dose: Not Given Piperacillin Sod/Tazobactam (Sod 3.375 gm/ Sodium Chloride) 100 mls @ 200 mls/ hr IVPB Q6HR [facility] Last Admin: 07/25/17 06:20 Dose: 100 mls Labetalol HCl (Normodyne) 10 mg SLOW IVP Q2H PRN PRN Reason: SBP Greater Than 170 Last Admin: 07/20/17 05:31 Dose: 10 mg Metronidazole (Flagyl) 500 mg PO TID [facility] Last Admin: 07/25/17 08:07 Dose: 500 mg Morphine Sulfate (Morphine Sulfate) 4 mg SLOW IVP Q4H PRN PRN Reason: Pain Last Admin: 07/25/17 04:42 Dose: 4 mg Ondansetron HCl (Zofran) 4 mg IVP Q6H PRN PRN Reason: Nausea/Vomiting Last Admin: 07/25/17 04:42 Dose: 4 mg Oxcarbazepine (Trileptal) 600 mg PO BID [facility] Last Admin: 07/25/17 08:07 Dose: 600 mg Promethazine HCl (Phenergan) 12.5 mg IM Q4H PRN PRN Reason: Nausea/Vomiting Propranolol HCl (Inderal) 40 mg PO BID [facility] Last Admin: 07/25/17 08:07 Dose: 40 mg Ropinirole HCl (Requip) 1 mg PO HS [facility] Last Admin: 07/24/17 20:56 Dose: 1 mg Sodium Chloride (Flush - Normal Saline) 10 ml IVF PRN PRN PRN Reason: Saline Flush Ziprasidone (Geodon) 20 mg IM Q12HR PRN PRN Reason: Agitation Last Admin: 07/20/17 14:02 Dose: 20 mg
[2017-07-25] MEDS: rOPINIRole HCl 1 MG TAB PO SCH (20:36)
[2017-07-25] MEDS: clonazePAM 1 MG TAB PO SCH (20:36)
[2017-07-25] MEDS: Multivitamins, Adult 10 ML, Multitrace-5 5 ML in D30W-AA 10% with Lytes 2,000 ML, Fat E... IV SCH (22:21)
[2017-07-26] MEDS ORDERED: Fioricet 325/50/40 mg Tablet PO PRN (04:58)
[2017-07-26] MEDS: Piperacillin/Tazobactam 3.375 GM in Sodium Chloride 0.9% 100 ML IVPB SCH ×4 (05:44→23:51)
[2017-07-26] MEDS: Fioricet 325/50/40 mg Tablet PO PRN ×2 (05:44→19:58)
[2017-07-26] MEDS: Sodium Chloride 0.9% 1,000 ML IV SCH ×3 (05:44→20:04)
[2017-07-26 05:51] LABS: Anion Gap 9 mmol/L (10-20); BUN (Urea Nitrogen) 16 mg/dL (9.8-20.1); Calc. Creatinine Clearance 79 mL/min (70-130); Calcium 8.9 mg/dL (7.8-10.44); Carbon Dioxide 24 mmol/L (22-29); Chloride 100 mmol/L (98-107); Estimated GFR-MDRD 89
[2017-07-26 07:04] LABS: Anisocytosis SLIGHT = 6-15 cells (100X) (0-5/hpf); Band 9 % (5-11); Mean Platelet Volume 8.4 fL (7.4-10.4); Metamyelocyte 1 % (0-0); Myelocyte 1 % (0-0); Neutrophil 64 % (42-75); Ovalocytes SLIGHT = 2-5 cells (100X) (0-1/hpf); Polychromasia SLIGHT = 2-3 cells (100X) (0-2/hpf); Red Blood Cell (RBC) Count 3.03 mill/uL (4.20-5.40); White Blood Cell (WBC) Count 18.4 thou/uL (4.8-10.8)
--- NOTE | 2017-07-26 07:48 | PRG ---
DATE OF SERVICE: 07/26/2017 SUBJECTIVE: She is frankly manic this morning. She is wanting to eat. She says her breathing is f ine. OBJECTIVE: VITAL SIGNS: On exam, temperature is 98.2, pulse 81, respirations 18, O2 saturation 95%, blood pres sure 157/98. HEENT: Unremarkable. NECK: No JVD. CHEST: Clear to auscultation without wheezing. CARDIAC: S1 and S2 regular. ABDOMEN: Soft. EXTREMITIES: No edema. LABORATORY DATA: White blood cell count 18.4, hematocrit 29, platelet count 415. ASSESSMENT: 1. Status post laparotomy for bowel. 2. Improved respiratory status. 3. Possible abscess in her abdomen. PLAN: Her pulmonary status has improved to the point where we can discontinue the nebulization ther apy. Antibiotic course will be dictated by Dr. Maldonado. Nothing further to offer; I will sign off.
[2017-07-26] MEDS: metroNIDAZOLE 500 MG TAB PO SCH ×3 (08:00→19:57)
[2017-07-26] MEDS: OXcarbazepine 300 MG TAB PO SCH ×2 (08:01→19:58)
[2017-07-26] MEDS: Famotidine 20 MG TAB PO SCH ×2 (08:02→19:57)
[2017-07-26] MEDS: Heparin 5,000 UNITS/ML VIAL SC SCH ×2 (08:06→19:58)
--- NOTE | 2017-07-26 13:49 | PDOC.PN ---
- Subjective Encounter Start Date: 07/26/17 Encounter Start Time: 10:00 Subjective: mild abd pain, no sob or nausea -: is tolerating full liq diet - Objective MAR Reviewed: Yes Vital Signs & Weight: Vital Signs (12 hours) Temp Pulse Resp BP Pulse Ox 07/26/17 12:14 148/99 H 07/26/17 08:00 97.6 F 77 18 175/102 H 96 Weight Admit Weight 132 lb 11.492 oz Weight 120 lb 6 oz Most Recent Monitor Data Heart Rate from ECG 77 NIBP 179/106 NIBP BP-Mean 149 Respiration from ECG 24 SpO2 100 I&O: 07/25/17 07/26/17 07/27/17 06:59 06:59 06:59 Intake Total 1783 3820 Output Total 4850 5500 Balance -3847 -8780 Result Diagrams: 07/26/17 04:19 07/26/17 04:19 Additional Labs: Accuchecks 07/26/17 07/25/17 07/25/17 04:13 19:30 16:10 POC Glucose 230 H 235 H 254 H Phys Exam - Physical Examination HEENT: PERRLA, moist MMs Neck: no JVD, supple Respiratory: no wheezing, no rales Cardiovascular: RRR, no significant murmur Gastrointestinal: soft, no distention, positive bowel sounds colostomy working with stool in it Musculoskeletal: no edema, pulses present Neurological: non-focal, moves all 4 limbs Dx/Plan (1) Sepsis Code(s): A41.9 - SEPSIS, UNSPECIFIED ORGANISM Status: Acute Qualifiers: Sepsis type: Escherichia coli Qualified Code(s): A41.51 - Sepsis due to Escherichia coli [E. coli] (2) S/P left hemicolectomy Code(s): Z90.49 - ACQUIRED ABSENCE OF OTHER SPECIFIED PARTS OF DIGESTIVE TRACT Status: Acute Comment: with tranverse colon colostomy (3) E coli bacteremia Code(s): R78.81 - BACTEREMIA Status: Acute Comment: sec to ischemic bowel and peritonitis (4) PREET (acute kidney injury) Code(s): N17.9 - ACUTE KIDNEY FAILURE, UNSPECIFIED Status: Resolved (5) Metabolic acidosis Code(s): E87.2 - ACIDOSIS Status: Acute (6) Toxic metabolic encephalopathy Code(s): G92 - TOXIC ENCEPHALOPATHY Status: Acute Comment: resolving (7) Urinary retention Code(s): R33.9 - RETENTION OF URINE, UNSPECIFIED Status: Acute Comment: s/p jin 07/21 (8) Bipolar disorder Code(s): F31.9 - BIPOLAR DISORDER, UNSPECIFIED Status: Chronic (9) Acute blood loss anemia Code(s): D62 - ACUTE POSTHEMORRHAGIC ANEMIA Status: Acute Comment: recieved 2 u PRBC on 07/23/2017 - Plan wbc is slowly trending down after being placed on zosyn -: has complex fluid in abd, repeat imaging per gen surg advice -: is tolerating oral full liq diet -: to amb in hallway as tolerated -: continue tpn for now * . Review of Systems - Medications/Allergies Allergies/Adverse Reactions: Allergies Allergy/AdvReac Type Severity Reaction Status Date / Time ciprofloxacin [From Cipro] Allergy Verified 07/20/17 02:20 ciprofloxacin HCl Allergy Verified 07/20/17 02:20 [From Cipro] ibuprofen Allergy Verified 07/20/17 02:20 latex Allergy Verified 07/16/17 19:58 sumatriptan [From Imitrex] Allergy Verified 07/20/17 02:20 sumatriptan succinate Allergy Verified 07/20/17 02:20 [From Imitrex] Medications: Current Medications Acetaminophen/Butalbital/Caffeine (Fioricet) 1 tab PO Q6H PRN PRN Reason: MILD HEADACHE Stop: 07/31/17 04:59 Acetaminophen/Butalbital/Caffeine (Fioricet) 2 tab PO Q6H PRN PRN Reason: MODERATE-SEVERE HEADACHE Stop: 07/31/17 04:59 Last Admin: 07/26/17 05:44 Dose: 2 tab Clonazepam (Klonopin) 1 mg PO QPM [facility] Last Admin: 07/25/17 20:36 Dose: 1 mg Clonidine HCl (Catapres) 0.1 mg PO Q4H PRN PRN Reason: Systolic BP > 180 Duloxetine HCl (Cymbalta) 20 mg PO DAILY [facility] Last Admin: 07/26/17 08:01 Dose: 20 mg Famotidine (Pepcid) 20 mg PO BID [facility] Last Admin: 07/26/17 08:02 Dose: 20 mg Heparin Sodium (Porcine) (Heparin) 5,000 units SC BID [facility] Last Admin: 07/26/17 08:06 Dose: 5,000 units Hydralazine HCl (Apresoline) 10 mg SLOW IVP Q4H PRN PRN Reason: SBP > 170 or DBP > 100 Last Admin: 07/20/17 14:27 Dose: 10 mg Hydralazine HCl (Apresoline) 5 mg SLOW IVP Q4H PRN PRN Reason: SBP Greater Than 180 Multivitamins 10 ml/ Chromium/Copper/Manganese/Seleni/Zn 5 ml/ Amino Acids/ Electrolytes/Fat Emulsion Intravenous 2,265 mls @ 94.375 mls/hr IV 2200 [facility] Last Admin: 07/25/17 22:21 Dose: 2,265 mls Sodium Chloride (Normal Saline 0.9%) 1,000 mls @ 125 mls/hr IV .Q8H [facility] Last Admin: 07/26/17 05:44 Dose: 1,000 mls Piperacillin Sod/Tazobactam (Sod 3.375 gm/ Sodium Chloride) 100 mls @ 200 mls/ hr IVPB Q6HR [facility] Last Admin: 07/26/17 12:37 Dose: 100 mls Labetalol HCl (Normodyne) 10 mg SLOW IVP Q2H PRN PRN Reason: SBP Greater Than 170 Last Admin: 07/20/17 05:31 Dose: 10 mg Metronidazole (Flagyl) 500 mg PO TID [facility] Last Admin: 07/26/17 08:00 Dose: 500 mg Morphine Sulfate (Morphine Sulfate) 4 mg SLOW IVP Q4H PRN PRN Reason: Pain Last Admin: 07/26/17 08:04 Dose: 4 mg Ondansetron HCl (Zofran) 4 mg IVP Q6H PRN PRN Reason: Nausea/Vomiting Last Admin: 07/25/17 04:42 Dose: 4 mg Oxcarbazepine (Trileptal) 600 mg PO BID [facility] Last Admin: 07/26/17 08:01 Dose: 600 mg Promethazine HCl (Phenergan) 12.5 mg IM Q4H PRN PRN Reason: Nausea/Vomiting Propranolol HCl (Inderal) 40 mg PO BID [facility] Last Admin: 07/26/17 08:01 Dose: 40 mg Ropinirole HCl (Requip) 1 mg PO HS [facility] Last Admin: 07/25/17 20:36 Dose: 1 mg Sodium Chloride (Flush - Normal Saline) 10 ml IVF PRN PRN PRN Reason: Saline Flush Ziprasidone (Geodon) 20 mg IM Q12HR PRN PRN Reason: Agitation Last Admin: 07/20/17 14:02 Dose: 20 mg
--- NOTE | 2017-07-26 16:20 | SPC ---
ULTRASOUND AND FLUOROSCOPIC GUIDED LEFT UPPER EXTREMITY PICC LINE PLACEMENT 07/26/17 HISTORY: Need for fpc central venous access. TECHNIQUE: Informed consent was obtained. Preprocedural ultrasound demonstrated patent left basilic vein. Site overlying the left basilic vein was sterilely prepped and draped. Buffered 1% lidocaine was administ ered overlying subcutaneous tissues. A micropuncture access needle was utilized to gain access to th e left basilic vein. A 5 [place] catheter sheath was placed. The wire was advanced to the level of th e IVC and hepatic vein. A dual lumen PICC line trimmed at 45 cm was guided over the wire and through the sheath. The sheath and wire were removed. Total fluoroscopic time was 0.6 minutes with total ex posure 1136 mGy*cm2. Catheter flushed and aspirated appropriate. IMPRESSION: Successful ultrasound and fluoroscopic guided left upper extremity PICC line placement. POS: [facility]
[2017-07-26] MEDS: clonazePAM 1 MG TAB PO SCH (19:58)
[2017-07-26] MEDS: rOPINIRole HCl 1 MG TAB PO SCH (19:58)
[2017-07-27 05:52] LABS: #Basophils 0.1 thou/uL (0.0-0.2); #Eosinphils 0.4 thou/uL (0.0-0.7); #Lymphocytes 1.8 thou/uL (1.20-3.40); #Monocytes 1.7 thou/uL (0.11-0.59); #Neutrophils 9.5 thou/uL (1.40-6.50); %Basophils 0.5 % (0.0-1.0); %Eosinophils 2.9 % (0.0-10.0); %Lymphocytes 13.3 % (21.0-51.0); %Monocytes 12.5 % (0.0-10.0); Hematocrit 30.4 % (36.0-47.0); Mean Platelet Volume 8.2 fL (7.4-10.4); Red Blood Cell (RBC) Count 3.13 mill/uL (4.20-5.40); White Blood Cell (WBC) Count 13.4 thou/uL (4.8-10.8)
[2017-07-27 06:07] LABS: Anion Gap 9 mmol/L (10-20); BUN (Urea Nitrogen) 12 mg/dL (9.8-20.1); Calc. Creatinine Clearance 91 mL/min (70-130); Calcium 8.5 mg/dL (7.8-10.44); Carbon Dioxide 22 mmol/L (22-29); Chloride 106 mmol/L (98-107); Estimated GFR-MDRD Greater than 90
[2017-07-27] MEDS: Piperacillin/Tazobactam 3.375 GM in Sodium Chloride 0.9% 100 ML IVPB SCH ×3 (06:15→17:44)
[2017-07-27] MEDS: Sodium Chloride 0.9% 1,000 ML IV SCH ×3 (06:38→20:19)
[2017-07-27] MEDS: metroNIDAZOLE 500 MG TAB PO SCH ×3 (09:28→20:06)
[2017-07-27] MEDS: Famotidine 20 MG TAB PO SCH ×2 (09:28→20:05)
[2017-07-27] MEDS: OXcarbazepine 300 MG TAB PO SCH ×2 (09:28→20:05)
[2017-07-27] MEDS: Heparin 5,000 UNITS/ML VIAL SC SCH ×2 (09:29→20:06)
--- NOTE | 2017-07-27 14:39 | PDOC.PN ---
- Subjective Encounter Start Date: 07/27/17 Encounter Start Time: 11:00 Subjective: no abd pain -: is tolerating solid food -: is passing urine after jin was removed - Objective MAR Reviewed: Yes Vital Signs & Weight: Vital Signs (12 hours) Temp Pulse Resp BP Pulse Ox 07/27/17 08:00 98.1 F 86 20 114/71 98 Weight Admit Weight 132 lb 11.492 oz Weight 120 lb 6 oz Most Recent Monitor Data Heart Rate from ECG 77 NIBP 179/106 NIBP BP-Mean 149 Respiration from ECG 24 SpO2 100 I&O: 07/26/17 07/27/17 07/28/17 06:59 06:59 06:59 Intake Total 3820 1980 480 Output Total 5500 3150 Balance -1680 -1170 480 Result Diagrams: 07/27/17 05:26 07/27/17 05:26 Additional Labs: Accuchecks 07/27/17 07/26/17 07/26/17 04:50 20:11 17:02 POC Glucose 97 124 H 134 H Phys Exam - Physical Examination HEENT: PERRLA, moist MMs Neck: no JVD, supple Respiratory: no wheezing, no rales Cardiovascular: RRR, no significant murmur Gastrointestinal: soft, no distention, positive bowel sounds colostomy has stool Musculoskeletal: no edema, pulses present Neurological: non-focal, moves all 4 limbs Psychiatric: A&O x 3 Dx/Plan (1) Sepsis Code(s): A41.9 - SEPSIS, UNSPECIFIED ORGANISM Status: Acute Qualifiers: Sepsis type: Escherichia coli Qualified Code(s): A41.51 - Sepsis due to Escherichia coli [E. coli] (2) S/P left hemicolectomy Code(s): Z90.49 - ACQUIRED ABSENCE OF OTHER SPECIFIED PARTS OF DIGESTIVE TRACT Status: Acute Comment: with tranverse colon colostomy (3) E coli bacteremia Code(s): R78.81 - BACTEREMIA Status: Acute Comment: sec to ischemic bowel and peritonitis (4) PREET (acute kidney injury) Code(s): N17.9 - ACUTE KIDNEY FAILURE, UNSPECIFIED Status: Resolved (5) Metabolic acidosis Code(s): E87.2 - ACIDOSIS Status: Resolved (6) Toxic metabolic encephalopathy Code(s): G92 - TOXIC ENCEPHALOPATHY Status: Resolved Comment: resolving (7) Urinary retention Code(s): R33.9 - RETENTION OF URINE, UNSPECIFIED Status: Resolved Comment: off jin passing urine 07/27/17 (8) Bipolar disorder Code(s): F31.9 - BIPOLAR DISORDER, UNSPECIFIED Status: Chronic (9) Acute blood loss anemia Code(s): D62 - ACUTE POSTHEMORRHAGIC ANEMIA Status: Acute Comment: recieved 2 u PRBC on 07/23/2017 - Plan is off tpn, tolerating solid food -: wbc down to 13 from 30k -: continue zosyn, to ambulate more in hallway as tolerated -: has picc line, may remove central line -: will need iv antibiotics over the weekend * . Review of Systems - Medications/Allergies Allergies/Adverse Reactions: Allergies Allergy/AdvReac Type Severity Reaction Status Date / Time ciprofloxacin [From Cipro] Allergy Verified 07/20/17 02:20 ciprofloxacin HCl Allergy Verified 07/20/17 02:20 [From Cipro] ibuprofen Allergy Verified 07/20/17 02:20 latex Allergy Verified 07/16/17 19:58 sumatriptan [From Imitrex] Allergy Verified 07/20/17 02:20 sumatriptan succinate Allergy Verified 07/20/17 02:20 [From Imitrex] Medications: Current Medications Acetaminophen/Butalbital/Caffeine (Fioricet) 1 tab PO Q6H PRN PRN Reason: MILD HEADACHE Stop: 07/31/17 04:59 Acetaminophen/Butalbital/Caffeine (Fioricet) 2 tab PO Q6H PRN PRN Reason: MODERATE-SEVERE HEADACHE Stop: 07/31/17 04:59 Last Admin: 07/26/17 19:58 Dose: 2 tab Clonazepam (Klonopin) [address] [facility] Last Admin: 07/26/17 19:58 Dose: 1 mg Clonidine HCl (Catapres) 0.1 mg PO Q4H PRN PRN Reason: Systolic BP > 180 Duloxetine HCl (Cymbalta) [address] [facility] Last Admin: 07/27/17 09:28 Dose: 20 mg Famotidine (Pepcid) [address] [facility] Last Admin: 07/27/17 09:28 Dose: 20 mg Heparin Sodium (Porcine) (Heparin) 5,[address] [facility] Last Admin: 07/27/17 09:29 Dose: 5,000 units Hydralazine HCl (Apresoline) 10 mg SLOW IVP Q4H PRN PRN Reason: SBP > 170 or DBP > 100 Last Admin: 07/26/17 16:14 Dose: 10 mg Hydralazine HCl (Apresoline) 5 mg SLOW IVP Q4H PRN PRN Reason: SBP Greater Than 180 Piperacillin Sod/Tazobactam (Sod 3.375 gm/ Sodium Chloride) 100 mls @ 200 mls/ hr IVPB Q6HR [facility] Last Admin: 07/27/17 11:07 Dose: 100 mls Sodium Chloride (Normal Saline 0.9%) 1,000 mls @ 50 mls/hr IV .Q20H [facility] Last Admin: 07/27/17 06:38 Dose: 1,000 mls Labetalol HCl (Normodyne) 10 mg SLOW IVP Q2H PRN PRN Reason: SBP Greater Than 170 Last Admin: 07/20/17 05:31 Dose: 10 mg Metronidazole (Flagyl) [address] [facility] Last Admin: 07/27/17 09:28 Dose: 500 mg Morphine Sulfate (Morphine Sulfate) 4 mg SLOW IVP Q4H PRN PRN Reason: Pain Last Admin: 07/27/17 11:06 Dose: 4 mg Ondansetron HCl (Zofran) 4 mg IVP Q6H PRN PRN Reason: Nausea/Vomiting Last Admin: 07/25/17 04:42 Dose: 4 mg Oxcarbazepine (Trileptal) [address] [facility] Last Admin: 07/27/17 09:28 Dose: 600 mg Promethazine HCl (Phenergan) 12.5 mg IM Q4H PRN PRN Reason: Nausea/Vomiting Propranolol HCl (Inderal) [address] [facility] Last Admin: 07/27/17 09:29 Dose: 40 mg Ropinirole HCl (Requip) [address] [facility] Last Admin: 07/26/17 19:58 Dose: 1 mg Sodium Chloride (Flush - Normal Saline) 10 ml IVF PRN PRN PRN Reason: Saline Flush Ziprasidone (Geodon) 20 mg IM Q12HR PRN PRN Reason: Agitation Last Admin: 07/20/17 14:02 Dose: 20 mg
[2017-07-27] MEDS ORDERED: Heparin 1,000 UNITS/ML VIAL ONE (15:17)
[2017-07-27] MEDS: clonazePAM 1 MG TAB PO SCH (20:05)
[2017-07-27] MEDS: rOPINIRole HCl 1 MG TAB PO SCH (20:05)
[2017-07-27] MEDS: Fioricet 325/50/40 mg Tablet PO PRN (20:18)
[2017-07-28] MEDS: Piperacillin/Tazobactam 3.375 GM in Sodium Chloride 0.9% 100 ML IVPB SCH ×4 (00:08→17:44)
[2017-07-28 04:08] LABS: #Basophils 0.1 thou/uL (0.0-0.2); #Eosinphils 0.2 thou/uL (0.0-0.7); #Lymphocytes 1.6 thou/uL (1.20-3.40); #Monocytes 1.5 thou/uL (0.11-0.59); #Neutrophils 6.7 thou/uL (1.40-6.50); %Basophils 0.5 % (0.0-1.0); %Eosinophils 2.3 % (0.0-10.0); %Lymphocytes 15.7 % (21.0-51.0); %Monocytes 14.8 % (0.0-10.0); Hematocrit 31.1 % (36.0-47.0); Mean Platelet Volume 8.2 fL (7.4-10.4); Red Blood Cell (RBC) Count 3.18 mill/uL (4.20-5.40); White Blood Cell (WBC) Count 10.1 thou/uL (4.8-10.8)
[2017-07-28 04:20] LABS: PTT 31.9 SEC (22.9-36.1); Prothrombin Time 14.9 SEC (12.0-14.7)
[2017-07-28 04:28] LABS: ALT (SGPT) 10 U/L (8-55); AST (SGOT) 27 U/L (5-34); Alkaline Phosphatase 115 U/L (40-150); Anion Gap 10 mmol/L (10-20); BUN (Urea Nitrogen) 9 mg/dL (9.8-20.1); Bilirubin, Total 0.6 mg/dL (0.2-1.2); Calc. Creatinine Clearance 82 mL/min (70-130); Calcium 8.9 mg/dL (7.8-10.44); Carbon Dioxide 24 mmol/L (22-29); Chloride 106 mmol/L (98-107); Cholesterol 118 mg/dl (< 200 Desired); Estimated GFR-MDRD Greater than 90; Globulin 3.5 g/dL (2.4-3.5); LDL Cholesterol, Calculated 64 mg/dL; Magnesium 1.3 mg/dL (1.6-2.6); Phosphorus 2.9 mg/dL (2.3-4.7); Protein, Total 6.3 g/dL (6.0-8.3)
[2017-07-28] MEDS ORDERED: Potassium Chloride 20 MEQ TAB PO SCH (05:00)
[2017-07-28] MEDS: Famotidine 20 MG TAB PO SCH ×2 (08:45→20:06)
[2017-07-28] MEDS: Heparin 5,000 UNITS/ML VIAL SC SCH ×2 (08:46→20:06)
[2017-07-28] MEDS: OXcarbazepine 300 MG TAB PO SCH ×2 (08:46→20:59)
[2017-07-28] MEDS: metroNIDAZOLE 500 MG TAB PO SCH ×3 (08:46→20:05)
[2017-07-28] MEDS: Potassium Chloride 20 MEQ TAB PO SCH ×3 (08:47→20:04)
[2017-07-28 10:36] VITALS: BMI 20.2
--- NOTE | 2017-07-28 15:12 | PDOC.PN ---
- Subjective Encounter Start Date: 07/28/17 Encounter Start Time: 10:00 Subjective: feels better, is eating solid food -: no nausea - Objective MAR Reviewed: Yes Vital Signs & Weight: Vital Signs (12 hours) Temp Pulse Resp BP Pulse Ox 07/28/17 08:00 98.2 F 79 16 145/85 H 97 07/28/17 07:53 98.2 F 79 16 96 Weight Admit Weight 132 lb 11.492 oz Weight 111 lb Most Recent Monitor Data Heart Rate from ECG 77 NIBP 179/106 NIBP BP-Mean 149 Respiration from ECG 24 SpO2 100 I&O: 07/27/17 07/28/17 07/29/17 06:59 06:59 06:59 Intake Total 1980 1540 Output Total 3150 675 Balance -1170 865 Result Diagrams: 07/28/17 03:21 07/28/17 03:21 Phys Exam - Physical Examination HEENT: PERRLA, moist MMs Neck: no JVD, supple Respiratory: no wheezing, no rales Cardiovascular: RRR, no significant murmur Gastrointestinal: soft, no distention, positive bowel sounds colostomy has stool in it, surgical hanh are clean Musculoskeletal: no edema, pulses present Neurological: non-focal, moves all 4 limbs Psychiatric: A&O x 3 Dx/Plan (1) Sepsis Code(s): A41.9 - SEPSIS, UNSPECIFIED ORGANISM Status: Acute Qualifiers: Sepsis type: Escherichia coli Qualified Code(s): A41.51 - Sepsis due to Escherichia coli [E. coli] (2) S/P left hemicolectomy Code(s): Z90.49 - ACQUIRED ABSENCE OF OTHER SPECIFIED PARTS OF DIGESTIVE TRACT Status: Acute Comment: with tranverse colon colostomy (3) E coli bacteremia Code(s): R78.81 - BACTEREMIA Status: Acute Comment: sec to ischemic bowel and peritonitis (4) PREET (acute kidney injury) Code(s): N17.9 - ACUTE KIDNEY FAILURE, UNSPECIFIED Status: Resolved (5) Metabolic acidosis Code(s): E87.2 - ACIDOSIS Status: Resolved (6) Toxic metabolic encephalopathy Code(s): G92 - TOXIC ENCEPHALOPATHY Status: Resolved Comment: resolving (7) Urinary retention Code(s): R33.9 - RETENTION OF URINE, UNSPECIFIED Status: Resolved Comment: off jin passing urine 07/27/17 (8) Bipolar disorder Code(s): F31.9 - BIPOLAR DISORDER, UNSPECIFIED Status: Chronic (9) Acute blood loss anemia Code(s): D62 - ACUTE POSTHEMORRHAGIC ANEMIA Status: Acute Comment: recieved 2 u PRBC on 07/23/2017 - Plan d/w , likely augmentin for dc plan -: is allergic to cipro -: has picc line, off tpn -: to ambulate more in hallway -: cognitively is more oriented and responds well * . Review of Systems - Medications/Allergies Allergies/Adverse Reactions: Allergies Allergy/AdvReac Type Severity Reaction Status Date / Time ciprofloxacin [From Cipro] Allergy Verified 07/20/17 02:20 ciprofloxacin HCl Allergy Verified 07/20/17 02:20 [From Cipro] ibuprofen Allergy Verified 07/20/17 02:20 latex Allergy Verified 07/16/17 19:58 sumatriptan [From Imitrex] Allergy Verified 07/20/17 02:20 sumatriptan succinate Allergy Verified 07/20/17 02:20 [From Imitrex] Medications: Current Medications Acetaminophen/Butalbital/Caffeine (Fioricet) 1 tab PO Q6H PRN PRN Reason: MILD HEADACHE Stop: 07/31/17 04:59 Acetaminophen/Butalbital/Caffeine (Fioricet) 2 tab PO Q6H PRN PRN Reason: MODERATE-SEVERE HEADACHE Stop: 07/31/17 04:59 Last Admin: 07/27/17 20:18 Dose: 2 tab Clonazepam (Klonopin) 1 mg PO QPM [facility] Last Admin: 07/27/17 20:05 Dose: 1 mg Clonidine HCl (Catapres) 0.1 mg PO Q4H PRN PRN Reason: Systolic BP > 180 Duloxetine HCl (Cymbalta) 20 mg PO DAILY [facility] Last Admin: 07/28/17 08:45 Dose: 20 mg Famotidine (Pepcid) 20 mg PO BID [facility] Last Admin: 07/28/17 08:45 Dose: 20 mg Heparin Sodium (Porcine) (Heparin) 5,000 units SC BID [facility] Last Admin: 07/28/17 08:46 Dose: 5,000 units Hydralazine HCl (Apresoline) 10 mg SLOW IVP Q4H PRN PRN Reason: SBP > 170 or DBP > 100 Last Admin: 07/26/17 16:14 Dose: 10 mg Hydralazine HCl (Apresoline) 5 mg SLOW IVP Q4H PRN PRN Reason: SBP Greater Than 180 Piperacillin Sod/Tazobactam (Sod 3.375 gm/ Sodium Chloride) 100 mls @ 200 mls/ hr IVPB Q6HR [facility] Last Admin: 07/28/17 12:50 Dose: 100 mls Sodium Chloride (Normal Saline 0.9%) 1,000 mls @ 50 mls/hr IV .Q20H [facility] Last Admin: 07/27/17 20:19 Dose: 1,000 mls Labetalol HCl (Normodyne) 10 mg SLOW IVP Q2H PRN PRN Reason: SBP Greater Than 170 Last Admin: 07/20/17 05:31 Dose: 10 mg Metronidazole (Flagyl) 500 mg PO TID [facility] Last Admin: 07/28/17 08:46 Dose: 500 mg Morphine Sulfate (Morphine Sulfate) 4 mg SLOW IVP Q4H PRN PRN Reason: Pain Last Admin: 07/28/17 10:32 Dose: 4 mg Ondansetron HCl (Zofran) 4 mg IVP Q6H PRN PRN Reason: Nausea/Vomiting Last Admin: 07/25/17 04:42 Dose: 4 mg Oxcarbazepine (Trileptal) 600 mg PO BID [facility] Last Admin: 07/28/17 08:46 Dose: 600 mg Potassium Chloride (K-Dur) 40 meq PO TID [facility] Last Admin: 07/28/17 08:47 Dose: 40 meq Promethazine HCl (Phenergan) 12.5 mg IM Q4H PRN PRN Reason: Nausea/Vomiting Propranolol HCl (Inderal) 40 mg PO BID [facility] Last Admin: 07/28/17 08:47 Dose: 40 mg Ropinirole HCl (Requip) 1 mg PO HS [facility] Last Admin: 07/27/17 20:05 Dose: 1 mg Sodium Chloride (Flush - Normal Saline) 10 ml IVF PRN PRN PRN Reason: Saline Flush Ziprasidone (Geodon) 20 mg IM Q12HR PRN PRN Reason: Agitation Last Admin: 07/20/17 14:02 Dose: 20 mg
--- NOTE | 2017-07-28 16:39 | CON ---
DATE OF CONSULTATION: 07/28/2017 REASON FOR CONSULTATION: Intraabdominal inflammatory process. HISTORY OF PRESENT ILLNESS: A 56-year-old patient who has a history of partial colectomy for management of diverticulitis in the past, admitted in 2013 to this hospital with acute cholecystitis. At that time, she had a cholecystectomy by Dr. Elaine and microscopic exam demonstrated acute cholecystitis with ulceration and necrosis. This time, she was admitted by Dr. Maldonado and patient herself does not have a good recollection of the sequence of the events, but according to the history documented in the record, patient developed abdominal pain and diarrhea the weeks before admission. Subsequently , she developed dizziness and was found fallen down, ambulance was called and brought to [place]. On arrival to [place] ER, she was septic and a CT scan of the abdomen showed abnormalities, which led to laparotomy with resection of the left colon for necrosis and establishment of a colostomy. The pathology of the surgical specimen was consistent with transmural hemorrhagic infarction with peritonitis. At the surgical margins of resection, there was evidence of mucosal ischemic change. Microbiology has demonstrated E. coli, which had a fairly broad susceptibility profile on admission one set of blood cultures only. The patient has remained afebrile through the hospital stay and the white cell count has progressively decreased to 10.1 today. There has been a repeat abdomen and pelvis CT on 07/23, which demonstrated a 6 x 3 x 5 cm collection in the area between pancreas and spleen extending towards the paracolic gutter with air, soft tissue and fluid. The patient is currently on Flagyl and Zosyn and she has moderate pain in the abdominal area along the incision. She denies headaches, no visual symptoms, sore throat, odynophagia or dysphagia. No chest pain, no dyspnea, no genitourinary symptoms. No joint symptoms. No neurological symptoms. PAST MEDICAL HISTORY: Includes prior partial colectomy for management of diverticulitis a few years ago, cholecystectomy 3 years ago, history of bipolar or some similar psychiatric diagnosis in the past. ALLERGIES: CIPROFLOXACIN. The allergy reportedly is skin rash, which she had in the past. SOCIAL HISTORY: Patient reportedly lives in [place]. She is and has a history of smoking. It is not clear when she stopped smoking. PHYSICAL EXAMINATION: VITAL SIGNS: T-max of 98.2, blood pressure 140/80, pulse 79, respirations 16 and O2 saturation 97%. GENERAL: Appears in no distress. SKIN: Shows a peripheral IV access. No Charles catheter. A midline incision with no erythema or dehiscence. Colostomy appears in good shape. There is a small amount of soft light green stool in the bag. No lymphadenopathy. HEENT: Ocular movements are conjugate. Sclerae white. Oral cavity moist with numerous missing teeth. The remainder ones with some decay. NECK: Supple. No jugular venous distention. LUNGS: With symmetric clear breath sounds. HEART: S1 and S2, regular rate without murmurs. No S3 or S4. ABDOMEN: Flat and moderately tender around the incision. Bowel sounds are present. No bladder distention. No joint inflammatory activity. Moves all extremities equally. NEUROLOGIC: She is awake, knows her name. She had a hard time remembering the name of the hospital, did not remember the year and she remembered the name of the city after a while. She really had a very difficult time in remembering the sequence of the events that led to her admission. LABORATORY DATA: White cell count is down to 10,000, hemoglobin 10, platelets 431 with 66% neutrophils. Sodium 137, potassium 2.7, creatinine 0.65 with normal liver profile and albumin 2.8. Urinalysis with 0-3 wbc's. Microbiology has been discussed above. Repeat blood cultures negative from 07/25/2017. ASSESSMENT: 1. Bipolar disorder. 2. Cognitive dysfunction more consistent with dementia rather than delirium. 3. History of prior diverticulitis with partial resection a few years ago. 4. Left-sided colon necrosis, which led to a resection of the left colon with a colostomy placement. The pathology was consistent with a transmural hemorrhagic infarction. 5. Findings in the latest CT scan suggestive of remaining of possibly infected fluid collection in the left upper quadrant. DISCUSSION: Overall, there has been clinical and laboratory improvement in terms of the inflammatory process. The patient is allergic to CIPROFLOXACIN, therefore we will have to continue IV therapy for completion of the treatment of the inflammatory process and we will switch her to Invanz for the outpatient phase of treatment and she will have to come daily for administration of therapy here in the hospital. Another option would be to switch to Omnicef plus Flagyl or Vantin plus Flagyl. The duration of therapy would be probably around 2-3 weeks. In view of her cognitive dysfunction, I believe that a supervised IV therapy would have a better chance of a positive outcome and I am afraid she would forget to take her oral medications in the outpatient setting and end up readmitted. OSMEL
[2017-07-28] MEDS: clonazePAM 1 MG TAB PO SCH (20:04)
[2017-07-28] MEDS: rOPINIRole HCl 1 MG TAB PO SCH (20:04)
[2017-07-28] MEDS: Fioricet 325/50/40 mg Tablet PO PRN (20:58)
[2017-07-28] MEDS ORDERED: FLU VACC QS2017-18 36 mo. & older 0.5 ML SYRINGE IM ONE (21:00)
[2017-07-28] MEDS: Sodium Chloride 0.9% 1,000 ML IV SCH (22:15)
[2017-07-29] MEDS: Sodium Chloride 0.9% 1,000 ML IV SCH (00:18)
[2017-07-29] MEDS: Piperacillin/Tazobactam 3.375 GM in Sodium Chloride 0.9% 100 ML IVPB SCH ×5 (00:20→23:12)
[2017-07-29 05:37] LABS: Anion Gap 12 mmol/L (10-20); BUN (Urea Nitrogen) 7 mg/dL (9.8-20.1); Calc. Creatinine Clearance 78 mL/min (70-130); Calcium 8.6 mg/dL (7.8-10.44); Carbon Dioxide 18 mmol/L (22-29); Chloride 109 mmol/L (98-107); Estimated GFR-MDRD Greater than 90
[2017-07-29] MEDS: Famotidine 20 MG TAB PO SCH ×2 (09:01→20:32)
[2017-07-29] MEDS: OXcarbazepine 300 MG TAB PO SCH ×2 (09:01→20:32)
[2017-07-29] MEDS: Potassium Chloride 20 MEQ TAB PO SCH (09:01)
[2017-07-29] MEDS: metroNIDAZOLE 500 MG TAB PO SCH ×3 (09:01→20:32)
[2017-07-29] MEDS: Heparin 5,000 UNITS/ML VIAL SC SCH ×2 (09:02→20:32)
[2017-07-29] MEDS: Fioricet 325/50/40 mg Tablet PO PRN (12:49)
--- NOTE | 2017-07-29 13:16 | PDOC.PN ---
- Subjective Encounter Start Date: 07/29/17 Encounter Start Time: 09:20 Subjective: feels better - Objective MAR Reviewed: Yes Vital Signs & Weight: Vital Signs (12 hours) Temp Pulse Resp BP Pulse Ox 07/29/17 11:21 98.2 F 71 16 141/89 H 98 07/29/17 08:00 98.6 F 67 16 99 07/29/17 07:45 98.6 F 67 16 124/83 98 Weight Admit Weight 132 lb 11.492 oz Weight 111 lb Most Recent Monitor Data Heart Rate from ECG 77 NIBP 179/106 NIBP BP-Mean 149 Respiration from ECG 24 SpO2 100 I&O: 07/28/17 07/29/17 07/30/17 06:59 06:59 06:59 Intake Total 1540 1080 Output Total 675 Balance 865 1080 Result Diagrams: 07/28/17 03:21 07/29/17 04:22 Phys Exam - Physical Examination HEENT: PERRLA, moist MMs Neck: no JVD, supple Respiratory: no wheezing, no rales Cardiovascular: RRR, no significant murmur colostomy has stool Gastrointestinal: soft, non-tender, positive bowel sounds Musculoskeletal: no edema, pulses present Neurological: non-focal, moves all 4 limbs Psychiatric: A&O x 3 Dx/Plan (1) Sepsis Code(s): A41.9 - SEPSIS, UNSPECIFIED ORGANISM Status: Acute Qualifiers: Sepsis type: Escherichia coli Qualified Code(s): A41.51 - Sepsis due to Escherichia coli [E. coli] (2) S/P left hemicolectomy Code(s): Z90.49 - ACQUIRED ABSENCE OF OTHER SPECIFIED PARTS OF DIGESTIVE TRACT Status: Acute Comment: with tranverse colon colostomy (3) E coli bacteremia Code(s): R78.81 - BACTEREMIA Status: Acute Comment: sec to ischemic bowel and peritonitis (4) PREET (acute kidney injury) Code(s): N17.9 - ACUTE KIDNEY FAILURE, UNSPECIFIED Status: Resolved (5) Metabolic acidosis Code(s): E87.2 - ACIDOSIS Status: Resolved (6) Toxic metabolic encephalopathy Code(s): G92 - TOXIC ENCEPHALOPATHY Status: Resolved Comment: resolving (7) Urinary retention Code(s): R33.9 - RETENTION OF URINE, UNSPECIFIED Status: Resolved Comment: off jin passing urine 07/27/17 (8) Bipolar disorder Code(s): F31.9 - BIPOLAR DISORDER, UNSPECIFIED Status: Chronic (9) Acute blood loss anemia Code(s): D62 - ACUTE POSTHEMORRHAGIC ANEMIA Status: Acute Comment: recieved 2 u PRBC on 07/23/2017 - Plan sepsis is resolving with normalizing of wbc -: to continue antibiotics per -: is currently on zosyn -: for setting up Invanz for 3 weeks for outpt use -: to ambulate more in hallway * . Review of Systems - Medications/Allergies Allergies/Adverse Reactions: Allergies Allergy/AdvReac Type Severity Reaction Status Date / Time ciprofloxacin [From Cipro] Allergy Verified 07/20/17 02:20 ciprofloxacin HCl Allergy Verified 07/20/17 02:20 [From Cipro] ibuprofen Allergy Verified 07/20/17 02:20 latex Allergy Verified 07/16/17 19:58 sumatriptan [From Imitrex] Allergy Verified 07/20/17 02:20 sumatriptan succinate Allergy Verified 07/20/17 02:20 [From Imitrex] Medications: Current Medications Acetaminophen/Butalbital/Caffeine (Fioricet) 1 tab PO Q6H PRN PRN Reason: MILD HEADACHE Stop: 07/31/17 04:59 Acetaminophen/Butalbital/Caffeine (Fioricet) 2 tab PO Q6H PRN PRN Reason: MODERATE-SEVERE HEADACHE Stop: 07/31/17 04:59 Last Admin: 07/29/17 12:49 Dose: 2 tab Clonazepam (Klonopin) 1 mg PO QPM [facility] Last Admin: 07/28/17 20:04 Dose: 1 mg Clonidine HCl (Catapres) 0.1 mg PO Q4H PRN PRN Reason: Systolic BP > 180 Duloxetine HCl (Cymbalta) 20 mg PO DAILY [facility] Last Admin: 07/29/17 09:00 Dose: 20 mg Famotidine (Pepcid) 20 mg PO BID [facility] Last Admin: 07/29/17 09:01 Dose: 20 mg Heparin Sodium (Porcine) (Heparin) 5,000 units SC BID [facility] Last Admin: 07/29/17 09:02 Dose: 5,000 units Hydralazine HCl (Apresoline) 10 mg SLOW IVP Q4H PRN PRN Reason: SBP > 170 or DBP > 100 Last Admin: 07/26/17 16:14 Dose: 10 mg Hydralazine HCl (Apresoline) 5 mg SLOW IVP Q4H PRN PRN Reason: SBP Greater Than 180 Piperacillin Sod/Tazobactam (Sod 3.375 gm/ Sodium Chloride) 100 mls @ 200 mls/ hr IVPB Q6HR [facility] Last Admin: 07/29/17 11:08 Dose: 100 mls Labetalol HCl (Normodyne) 10 mg SLOW IVP Q2H PRN PRN Reason: SBP Greater Than 170 Last Admin: 07/20/17 05:31 Dose: 10 mg Metronidazole (Flagyl) 500 mg PO TID [facility] Last Admin: 07/29/17 09:01 Dose: 500 mg Ondansetron HCl (Zofran) 4 mg IVP Q6H PRN PRN Reason: Nausea/Vomiting Last Admin: 07/25/17 04:42 Dose: 4 mg Oxcarbazepine (Trileptal) 600 mg PO BID [facility] Last Admin: 07/29/17 09:01 Dose: 600 mg Potassium Chloride (Klor-Con) 40 meq PO TID [facility] Last Admin: 07/29/17 10:45 Dose: Not Given Promethazine HCl (Phenergan) 12.5 mg IM Q4H PRN PRN Reason: Nausea/Vomiting Propranolol HCl (Inderal) 40 mg PO BID [facility] Last Admin: 07/29/17 09:00 Dose: 40 mg Ropinirole HCl (Requip) 1 mg PO HS [facility] Last Admin: 07/28/17 20:04 Dose: 1 mg Sodium Chloride (Flush - Normal Saline) 10 ml IVF PRN PRN PRN Reason: Saline Flush Ziprasidone (Geodon) 20 mg IM Q12HR PRN PRN Reason: Agitation Last Admin: 07/20/17 14:02 Dose: 20 mg
--- NOTE | 2017-07-29 14:23 | PRG ---
DATE OF SERVICE: 07/29/2017 I am seeing Ms. Ricardo on behalf of Dr. Maldonado who is off this weekend. SUBJECTIVE: The patient is a 56-year-old woman who is almost 2 weeks status post exploratory laparo martin with left hemicolectomy. This morning, she is awake and alert and reports adequate pain contro l. She is tolerating diet. Denies any nausea or vomiting. OBJECTIVE: VITAL SIGNS: Includes blood pressure 141/89, pulse 71, respirations 16, temperature is 98.6 degrees Fahrenheit, oxygen saturation 98% on room air. HEENT: Reveals normocephalic and atraumatic. HEART: Reveals regular rate and rhythm. No murmurs or gallops auscultated. LUNGS: Clear to auscultation bilaterally. Breathing is regular and unlabored. ABDOMEN: Soft. Incisional wound is intact, clean, and dry. Colostomy is viable and functional wit h stool and some gas. GENITOURINARY: Patient has adequate urinary output. LABORATORY DATA: Today includes metabolic profile: Sodium 135, potassium 3.6, chloride is 109, bic arbonate is 18, BUN 7, creatinine 0.63, glucose is 94. IMPRESSION: Postoperative day #13, status post left hemicolectomy. The patient is hemodynamically stable. PLAN: 1. Increase activity and diet as tolerated. 2. Correct abnormal electrolytes.
[2017-07-29] MEDS ORDERED: Ibuprofen 200 MG TAB PO PRN (20:06)
[2017-07-29] MEDS: rOPINIRole HCl 1 MG TAB PO SCH (20:31)
[2017-07-29] MEDS: clonazePAM 1 MG TAB PO SCH (20:32)
[2017-07-29] MEDS ORDERED: Acetaminophen 325 MG TAB PO SCH (23:00)
[2017-07-30] MEDS: Piperacillin/Tazobactam 3.375 GM in Sodium Chloride 0.9% 100 ML IVPB SCH ×3 (05:59→17:13)
[2017-07-30 06:28] LABS: Anion Gap 10 mmol/L (10-20); BUN (Urea Nitrogen) 4 mg/dL (9.8-20.1); Calc. Creatinine Clearance 85 mL/min (70-130); Calcium 8.8 mg/dL (7.8-10.44); Carbon Dioxide 20 mmol/L (22-29); Chloride 106 mmol/L (98-107); Estimated GFR-MDRD Greater than 90
[2017-07-30] MEDS: Famotidine 20 MG TAB PO SCH ×2 (08:43→20:10)
[2017-07-30] MEDS: Heparin 5,000 UNITS/ML VIAL SC SCH ×2 (08:44→20:10)
[2017-07-30] MEDS: metroNIDAZOLE 500 MG TAB PO SCH (08:44)
[2017-07-30] MEDS: OXcarbazepine 300 MG TAB PO SCH ×2 (08:45→20:10)
[2017-07-30] MEDS ORDERED: Morphine Sulfate 2 MG/ML SYRINGE SLOW IVP PRN ×2 (10:28→11:19)
--- NOTE | 2017-07-30 11:21 | PDOC.PN ---
- Subjective Encounter Start Date: 07/30/17 Encounter Start Time: 09:15 Subjective: feels better, says her abd occasionally hurts and wants her morphine to be -: re-instituted if she needs it. No nausea, is tolerating oral diet -: has amb in hallway and says she wont require walker - Objective MAR Reviewed: Yes Vital Signs & Weight: Vital Signs (12 hours) Temp Pulse Resp BP Pulse Ox 07/30/17 08:00 98.2 F 73 18 162/99 H 99 Weight Admit Weight 132 lb 11.492 oz Weight 111 lb Most Recent Monitor Data Heart Rate from ECG 77 NIBP 179/106 NIBP BP-Mean 149 Respiration from ECG 24 SpO2 100 I&O: 07/29/17 07/30/17 07/31/17 06:59 06:59 06:59 Intake Total 1080 1100 480 Output Total 550 Balance 1080 550 480 Result Diagrams: 07/28/17 03:21 07/30/17 04:23 Phys Exam - Physical Examination HEENT: PERRLA, sclera anicteric Neck: no JVD, supple Respiratory: no wheezing, no rales Cardiovascular: RRR, no significant murmur Gastrointestinal: soft, no distention, positive bowel sounds surgical site is clean, hanh in Musculoskeletal: no edema, pulses present Neurological: non-focal, moves all 4 limbs Psychiatric: A&O x 3 Dx/Plan (1) Sepsis Code(s): A41.9 - SEPSIS, UNSPECIFIED ORGANISM Status: Acute Qualifiers: Sepsis type: Escherichia coli Qualified Code(s): A41.51 - Sepsis due to Escherichia coli [E. coli] (2) S/P left hemicolectomy Code(s): Z90.49 - ACQUIRED ABSENCE OF OTHER SPECIFIED PARTS OF DIGESTIVE TRACT Status: Acute Comment: with tranverse colon colostomy (3) E coli bacteremia Code(s): R78.81 - BACTEREMIA Status: Acute Comment: sec to ischemic bowel and peritonitis (4) PREET (acute kidney injury) Code(s): N17.9 - ACUTE KIDNEY FAILURE, UNSPECIFIED Status: Resolved (5) Metabolic acidosis Code(s): E87.2 - ACIDOSIS Status: Resolved (6) Toxic metabolic encephalopathy Code(s): G92 - TOXIC ENCEPHALOPATHY Status: Resolved Comment: resolving (7) Urinary retention Code(s): R33.9 - RETENTION OF URINE, UNSPECIFIED Status: Resolved Comment: off jin passing urine 07/27/17 (8) Bipolar disorder Code(s): F31.9 - BIPOLAR DISORDER, UNSPECIFIED Status: Chronic (9) Acute blood loss anemia Code(s): D62 - ACUTE POSTHEMORRHAGIC ANEMIA Status: Acute Comment: recieved 2 u PRBC on 07/23/2017 - Plan has complex fluid in LUQ, too small to be drained -: has responded well to zosyn with wbc down to normal from 30k -: colostomy is working well -: will need invanz for outpt treatment, duration per -: has picc line, once antibiotic is arranged she can be discharged * . Review of Systems - Medications/Allergies Allergies/Adverse Reactions: Allergies Allergy/AdvReac Type Severity Reaction Status Date / Time ciprofloxacin [From Cipro] Allergy Verified 07/20/17 02:20 ciprofloxacin HCl Allergy Verified 07/20/17 02:20 [From Cipro] ibuprofen Allergy Verified 07/20/17 02:20 latex Allergy Verified 07/16/17 19:58 sumatriptan [From Imitrex] Allergy Verified 07/20/17 02:20 sumatriptan succinate Allergy Verified 07/20/17 02:20 [From Imitrex] Medications: Current Medications Acetaminophen (Tylenol) 1,000 mg PO Q6H PRN PRN Reason: Mild-Moderate Pain (1-5) Acetaminophen/Butalbital/Caffeine (Fioricet) 1 tab PO Q6H PRN PRN Reason: MILD HEADACHE Stop: 07/31/17 04:59 Clonidine HCl (Catapres) 0.1 mg PO Q4H PRN PRN Reason: Systolic BP > 180 Duloxetine HCl (Cymbalta) 20 mg PO DAILY [facility] Last Admin: 07/30/17 08:42 Dose: 20 mg Famotidine (Pepcid) 20 mg PO BID [facility] Last Admin: 07/30/17 08:43 Dose: 20 mg Heparin Sodium (Porcine) (Heparin) 5,000 units SC BID [facility] Last Admin: 07/30/17 08:44 Dose: 5,000 units Hydralazine HCl (Apresoline) 10 mg SLOW IVP Q4H PRN PRN Reason: SBP > 170 or DBP > 100 Last Admin: 07/26/17 16:14 Dose: 10 mg Hydralazine HCl (Apresoline) 5 mg SLOW IVP Q4H PRN PRN Reason: SBP Greater Than 180 Piperacillin Sod/Tazobactam (Sod 3.375 gm/ Sodium Chloride) 100 mls @ 200 mls/ hr IVPB Q6HR [facility] Last Admin: 07/30/17 05:59 Dose: 100 mls Labetalol HCl (Normodyne) 10 mg SLOW IVP Q2H PRN PRN Reason: SBP Greater Than 170 Last Admin: 07/20/17 05:31 Dose: 10 mg Morphine Sulfate (Morphine Sulfate) 2 mg SLOW IVP Q6H PRN PRN Reason: DIRECTED Ondansetron HCl (Zofran) 4 mg IVP Q6H PRN PRN Reason: Nausea/Vomiting Last Admin: 07/25/17 04:42 Dose: 4 mg Oxcarbazepine (Trileptal) 600 mg PO BID [facility] Last Admin: 07/30/17 08:45 Dose: 600 mg Potassium Chloride (K-Dur) 40 meq PO BID[facility] Promethazine HCl (Phenergan) 12.5 mg IM Q4H PRN PRN Reason: Nausea/Vomiting Propranolol HCl (Inderal) 40 mg PO BID [facility] Last Admin: 07/30/17 08:43 Dose: 40 mg Ropinirole HCl (Requip) 1 mg PO HS [facility] Last Admin: 07/29/17 20:31 Dose: 1 mg Sodium Chloride (Flush - Normal Saline) 10 ml IVF PRN PRN PRN Reason: Saline Flush Ziprasidone (Geodon) 20 mg IM Q12HR PRN PRN Reason: Agitation Last Admin: 07/20/17 14:02 Dose: 20 mg
[2017-07-30] MEDS: Acetaminophen 500 MG TAB PO PRN (12:01)
--- NOTE | 2017-07-30 12:16 | PRG ---
DATE OF SERVICE: 07/30/2017 SUBJECTIVE: The patient is 2 weeks status post exploratory laparotomy with left hemicolectomy and c olostomy. The patient has denied any issues overnight; however, she is reporting some pain this mor asim that was not controlled as well last night as well as previous night, her primary medicine doct or has adjust her pain medicines. This morning, she is awake and alert. She is asking for her diet to be increased which it was yesterday. I am not sure what happened, but she has a regular diet or dered. She has no nausea and vomiting and she is working with the walking program for ambulation. PHYSICAL EXAMINATION: VITAL SIGNS: Temperature is 98.2, heart rate 73, blood pressure 162/99, respirations 18, and oxygen saturation is 99% on room air. HEENT: Unremarkable. CHEST: Clear to auscultation bilaterally. ABDOMEN: The ostomy bag is full of air and loose stool. Her midline incision is well approximated with hanh and packed, it can be discontinued most likely tomorrow. NEUROVASCULAR: Neurovascularly, she is intact x4. LABORATORY DATA AND IMAGING: This morning sodium 133, potassium 3.4, chloride 106, CO2 20, BUN 4, c reatinine 0.58, and glucose 92. There are no radiographs to review. ASSESSMENT AND PLAN: 1. Status post hemicolectomy. 2. Plan will be to continue diet and activity as previously stated. Encourage the patient to incre ase her diet and her activity and patient most likely to be discharged in the next day or so, she ap pears stable from our standpoint.
[2017-07-30] MEDS: Potassium Chloride 20 MEQ TAB PO SCH (17:12)
[2017-07-30] MEDS: rOPINIRole HCl 1 MG TAB PO SCH (20:10)
[2017-07-31] MEDS: Piperacillin/Tazobactam 3.375 GM in Sodium Chloride 0.9% 100 ML IVPB SCH ×5 (00:34→23:59)
[2017-07-31 06:17] LABS: Anion Gap 13 mmol/L (10-20); BUN (Urea Nitrogen) Less than 4 mg/dL (9.8-20.1); Calc. Creatinine Clearance 80 mL/min (70-130); Carbon Dioxide 19 mmol/L (22-29); Chloride 104 mmol/L (98-107); Estimated GFR-MDRD Greater than 90
[2017-07-31] MEDS: Potassium Chloride 20 MEQ TAB PO SCH ×2 (08:56→17:05)
[2017-07-31] MEDS: OXcarbazepine 300 MG TAB PO SCH ×2 (08:57→21:11)
[2017-07-31] MEDS: Famotidine 20 MG TAB PO SCH ×2 (08:57→21:10)
[2017-07-31] MEDS: Heparin 5,000 UNITS/ML VIAL SC SCH ×2 (08:57→21:11)
--- NOTE | 2017-07-31 11:40 | PDOC.PN ---
- Subjective Encounter Start Date: 07/31/17 Encounter Start Time: 07:40 -: old records requested/rev Patient seen and examined. No new complaints. No overnight events - Objective MAR Reviewed: Yes Vital Signs & Weight: Vital Signs (12 hours) Temp Pulse Resp BP BP Pulse Ox 07/31/17 08:00 98.4 F 91 16 96 07/31/17 07:59 98.4 F 91 16 139/96 H 96 07/31/17 06:16 82 07/31/17 06:10 162/113 H 07/31/17 00:00 158/86 H Weight Admit Weight 132 lb 11.492 oz Weight 111 lb Most Recent Monitor Data Heart Rate from ECG 77 NIBP 179/106 NIBP BP-Mean 149 Respiration from ECG 24 SpO2 100 I&O: 07/30/17 07/31/17 08/01/17 06:59 06:59 06:59 Intake Total 1100 2590 480 Output Total 550 275 Balance 550 2315 480 Result Diagrams: 07/28/17 03:21 07/31/17 04:34 Phys Exam - Physical Examination Constitutional: NAD HEENT: PERRLA, moist MMs, sclera anicteric Neck: no JVD, supple Respiratory: no wheezing, no rales, no rhonchi Cardiovascular: RRR, no significant murmur, no rub Gastrointestinal: soft, non-tender, no distention, positive bowel sounds colostomy+ Musculoskeletal: no edema, pulses present Neurological: non-focal, normal sensation, moves all 4 limbs Lymphatic: no nodes Psychiatric: normal affect, A&O x 3 Skin: no rash, normal turgor Dx/Plan (1) Acute blood loss anemia Code(s): D62 - ACUTE POSTHEMORRHAGIC ANEMIA Status: Acute Comment: (2) E coli bacteremia Code(s): R78.81 - BACTEREMIA Status: Acute Comment: sec to ischemic bowel and peritonitis (3) Electrolyte imbalance Code(s): E87.8 - OTH DISORDERS OF ELECTROLYTE AND FLUID BALANCE, NEC Status: Acute (4) Elevated BP without diagnosis of hypertension Code(s): R03.0 - ELEVATED BLOOD-PRESSURE READING, W/O DIAGNOSIS OF HTN Status : Acute (5) Perforated sigmoid colon Code(s): K63.1 - PERFORATION OF INTESTINE (NONTRAUMATIC) Status: Acute (6) S/P left hemicolectomy Code(s): Z90.49 - ACQUIRED ABSENCE OF OTHER SPECIFIED PARTS OF DIGESTIVE TRACT Status: Acute Comment: with tranverse colon colostomy (7) Sepsis Code(s): A41.9 - SEPSIS, UNSPECIFIED ORGANISM Status: Acute Qualifiers: Sepsis type: Escherichia coli Qualified Code(s): A41.51 - Sepsis due to Escherichia coli [E. coli] (8) Bipolar disorder Code(s): F31.9 - BIPOLAR DISORDER, UNSPECIFIED Status: Chronic (9) PREET (acute kidney injury) Code(s): N17.9 - ACUTE KIDNEY FAILURE, UNSPECIFIED Status: Resolved (10) Metabolic acidosis Code(s): E87.2 - ACIDOSIS Status: Resolved (11) Respiratory failure, acute Code(s): J96.00 - ACUTE RESPIRATORY FAILURE, UNSP W HYPOXIA OR HYPERCAPNIA Status: Resolved (12) Toxic metabolic encephalopathy Code(s): G92 - TOXIC ENCEPHALOPATHY Status: Resolved Comment: resolving (13) Urinary retention Code(s): R33.9 - RETENTION OF URINE, UNSPECIFIED Status: Resolved Comment: - Plan cont current plan of care, continue antibiotics, psychotherapist social worker * at this point lead case manager need to arrange colostomy supply and outpt IV antibiotic * she will need 2-3 weeks IV antibiotics on discharge as per dr powell * medication reviewed as below * symptomatic treatment. Review of Systems - Review of Systems ENT: negative: Ear Pain, Ear Discharge, Nose Pain, Nose Discharge, Nose Congestion, Mouth Pain, Mouth Swelling, Throat Pain, Throat Swelling, Other Respiratory: negative: Cough, Dry, Shortness of Breath, Hemoptysis, SOB with Excertion, Pleuritic Pain, Sputum, Wheezing Cardiovascular: negative: Chest Pain, Palpitations, Orthopnea, Paroxysmal Noc. Dyspnea, Edema, Light Headedness, Other Gastrointestinal: negative: Nausea, Vomiting, Abdominal Pain, Diarrhea, Constipation, Melena, Hematochezia, Other Genitourinary: negative: Dysuria, Frequency, Incontinence, Hematuria, Retention , Other Musculoskeletal: negative: Neck Pain, Shoulder Pain, Arm Pain, Back Pain, Hand Pain, Leg Pain, Foot Pain, Other - Medications/Allergies Allergies/Adverse Reactions: Allergies Allergy/AdvReac Type Severity Reaction Status Date / Time ciprofloxacin [From Cipro] Allergy Verified 07/20/17 02:20 ciprofloxacin HCl Allergy Verified 07/20/17 02:20 [From Cipro] ibuprofen Allergy Verified 07/20/17 02:20 latex Allergy Verified 07/16/17 19:58 sumatriptan [From Imitrex] Allergy Verified 07/20/17 02:20 sumatriptan succinate Allergy Verified 07/20/17 02:20 [From Imitrex] Medications: Current Medications Acetaminophen (Tylenol) 1,000 mg PO Q6H PRN PRN Reason: Mild-Moderate Pain (1-5) Last Admin: 07/30/17 12:01 Dose: 1,000 mg Clonidine HCl (Catapres) 0.1 mg PO Q4H PRN PRN Reason: Systolic BP > 180 Duloxetine HCl (Cymbalta) 20 mg PO DAILY [facility] Last Admin: 07/31/17 08:56 Dose: 20 mg Famotidine (Pepcid) 20 mg PO BID [facility] Last Admin: 07/31/17 08:57 Dose: 20 mg Heparin Sodium (Porcine) (Heparin) 5,000 units SC BID [facility] Last Admin: 07/31/17 08:57 Dose: 5,000 units Hydralazine HCl (Apresoline) 10 mg SLOW IVP Q4H PRN PRN Reason: SBP > 170 or DBP > 100 Last Admin: 07/31/17 06:16 Dose: 10 mg Hydralazine HCl (Apresoline) 5 mg SLOW IVP Q4H PRN PRN Reason: SBP Greater Than 180 Piperacillin Sod/Tazobactam (Sod 3.375 gm/ Sodium Chloride) 100 mls @ 200 mls/ hr IVPB Q6HR [facility] Last Admin: 07/31/17 05:49 Dose: 100 mls Labetalol HCl (Normodyne) 10 mg SLOW IVP Q2H PRN PRN Reason: SBP Greater Than 170 Last Admin: 07/20/17 05:31 Dose: 10 mg Morphine Sulfate (Morphine Sulfate) 2 mg SLOW IVP Q6H PRN PRN Reason: DIRECTED Last Admin: 07/30/17 22:20 Dose: 2 mg Ondansetron HCl (Zofran) 4 mg IVP Q6H PRN PRN Reason: Nausea/Vomiting Last Admin: 07/25/17 04:42 Dose: 4 mg Oxcarbazepine (Trileptal) 600 mg PO BID [facility] Last Admin: 07/31/17 08:57 Dose: 600 mg Potassium Chloride (K-Dur) 40 meq PO BID-[facility] Last Admin: 07/31/17 08:56 Dose: Not Given Potassium Chloride (Klor-Con) 40 meq PO BID [facility] Last Admin: 07/31/17 08:57 Dose: 40 meq Promethazine HCl (Phenergan) 12.5 mg IM Q4H PRN PRN Reason: Nausea/Vomiting Propranolol HCl (Inderal) 40 mg PO BID [facility] Last Admin: 07/31/17 08:57 Dose: 40 mg Ropinirole HCl (Requip) 1 mg PO HS [facility] Last Admin: 07/30/17 20:10 Dose: 1 mg Sodium Chloride (Flush - Normal Saline) 10 ml IVF PRN PRN PRN Reason: Saline Flush Ziprasidone (Geodon) 20 mg IM Q12HR PRN PRN Reason: Agitation Last Admin: 07/20/17 14:02 Dose: 20 mg
[2017-07-31] MEDS: Acetaminophen 500 MG TAB PO PRN ×2 (13:28→19:10)
--- NOTE | 2017-07-31 17:07 | PRG ---
DATE OF SERVICE: 07/31/2017 HISTORY: Walking around, still with some abdominal pain, particularly after she eats. No headaches . No dyspnea or back pain, voiding without difficulty. Colostomy is working fine. PHYSICAL EXAMINATION: VITAL SIGNS: Temperature has been normal. LUNGS: Clear. HEART: S1, S2, regular rate. ABDOMEN: Flat, soft, mildly tender. NEURO EXAMINATION: Nonfocal. LABORATORY DATA: White cell count 10.1, hemoglobin 10.3, platelets 431,000. Chemistry not remarkab le. Microbiology, no changes. Currently receiving Zosyn. ASSESSMENT AND DISCUSSION: Bipolar disorder with cognitive dysfunction and diverticulitis, partial resection a few years ago and then left-sided colon necrosis status post left colon resection, colos martin placement and now with some areas of suggesting remaining infection in the left upper quadrant. The patient to continue Invanz in the outpatient setting through a PICC line for another 10-14 days. Monitoring C-reactive protein, CBC to determine endpoint.
[2017-07-31] MEDS: rOPINIRole HCl 1 MG TAB PO SCH (21:11)
[2017-08-01] MEDS: Acetaminophen 500 MG TAB PO PRN (00:43)
[2017-08-01] MEDS: Ondansetron HCl/PF 4 MG/2 ML Vial IVP PRN (00:45)
[2017-08-01 05:50] LABS: Anion Gap 9 mmol/L (10-20); BUN (Urea Nitrogen) 4 mg/dL (9.8-20.1); Calc. Creatinine Clearance 84 mL/min (70-130); Calcium 9.1 mg/dL (7.8-10.44); Carbon Dioxide 20 mmol/L (22-29); Chloride 106 mmol/L (98-107); Estimated GFR-MDRD Greater than 90
[2017-08-01] MEDS: Piperacillin/Tazobactam 3.375 GM in Sodium Chloride 0.9% 100 ML IVPB SCH (05:57)
[2017-08-01] MEDS: Heparin 5,000 UNITS/ML VIAL SC SCH (07:48)
[2017-08-01] MEDS: OXcarbazepine 300 MG TAB PO SCH (07:48)
[2017-08-01] MEDS: Potassium Chloride 20 MEQ TAB PO SCH (07:48)
[2017-08-01] MEDS: Famotidine 20 MG TAB PO SCH (07:49)
[2017-08-01 08:27] VITALS: BP 168/112; TEMP 98.5
--- NOTE | 2017-08-01 10:29 | DIS ---
DISCHARGE DIAGNOSES: Colonic ischemia and necrosis, inflammatory fluid collection, intra-abdominal. PROCEDURES DURING ADMISSION: Central line placement, PICC line placement, exploratory laparotomy, l eft hemicolectomy, colostomy creation. HOSPITAL COURSE: The patient was admitted, taken to the operating room where she underwent explorat ory laparotomy and left hemicolectomy. She was given an end colostomy. She was watched in ICU, sep tic. Eventually, her bowel function returned. She was transferred to the floor. She had to be young ated with TPNs for few days. She was doing better and then she started getting sick again and a CT scan showed inflammatory fluid collection in the left upper quadrant that was not amenable to draina ge at that time. She was treated with IV antibiotics, which she responded to very well and will be continued as an outpatient. Infectious Disease has been consulted. They recommended another 10 to 14 days of Invanz. She will follow up with me in 2 weeks.
--- NOTE | 2017-08-01 10:37 | DIS ---
DATE OF ADMISISON: 07/16/2017 DATE OF DISCHARGE: 08/01/2017 PRIMARY CARE PHYSICIAN: [facility] call admission. PRIMARY ATTENDING: Dr. Maldonado. PRIMARY DISCHARGE DIAGNOSES: 1. Sigmoid colon perforation, status post left hemicolectomy and colostomy placement. 2. Sepsis. 3. Acute kidney failure, metabolic acidosis, respiratory failure, toxic metabolic encephalopathy, u rinary retention. All these problems resolved. Electrolyte imbalance corrected, E. coli bacteremia , acute blood loss anemia. SECONDARY DISCHARGE DIAGNOSES: Anxiety, depression, bipolar disorder, asthma. PRIMARY PROCEDURE/OPERATION: Left hemicolectomy, central line placement, endotracheal intubation, m echanical ventilatory support, colostomy, PICC line placement. RADIOLOGICAL INVESTIGATION: Abdomen and pelvis CT scan on admission showed sigmoid colon perforatio n. The patient had several chest x-rays when she was intubated. Abdomen and pelvis repeat CT scan also done on 07/23/2017. SIGNIFICANT LABORATORY DATA: WBC 10.1, hemoglobin 10.3, platelets 431. INR 1.2, creatinine 0.59. Sodium 131, potassium 4.0, calcium 9.1. LFTs normal. Urinalysis unremarkable. Blood culture and urine culture negative. Initial blood culture was positive for E. coli. DISCHARGE MEDICATIONS: Patient will have Invanz IV daily for another 2 weeks. During this period, patient will have weekly CBC, CMP and CRP. Continue following medications albuterol sulfate 2 puffs q.6 hours, Cymbalta 20 mg p.o. daily, Pepcid 20 mg p.o. b.i.d., [place] one or two tablets q.4 hours p.r.n., Trileptal 600 mg p.o. b.i.d., Phenergan 25 mg p.o. daily p.r.n., Inderal 40 mg p.o. b.i.d., clonidine 0.1 mg p.o. q.4 hours p.r.n., ropinirole 1 mg p.o. at bedtime. CONTRAINDICATIONS: None. CODE STATUS: FULL CODE. INPATIENT CONSULTANTS: Dr. Maldonado was primary. Dr. Hortencia Acuna was consulted for urinary retenti on. Dr. Mendez was following for acute kidney failure. Dr. Shipman was managing ventilator. Dr. Butler was consulted for bacteremia. TEST RESULTS PENDING ON DISCHARGE: None. ALLERGIES: CIPRO, IBUPROFEN, LATEX and, SUMATRIPTAN. DISCHARGE PLAN: Post hospital, the patient will follow with Dr. Butler, Dr. Maldonado and other consulta nts as instructed. HOSPITAL COURSE: The patient is a 56-year-old female who was admitted under general surgery on 10/2016. In the emergency room, she presented with nausea, vomiting, abdominal pain, and she was fou nd with sigmoid colon perforation. She required left hemicolectomy and colostomy placement. Postop eratively, the patient was intubated. She had E. coli bacteremia and that is why Dr. Butler was recommended to continue IV antibiotic thera py upon discharge, she had PICC line placement on 07/26/2017. Necessary supply for colostomy care a nd outpatient IV antibiotic therapy is going to be arranged with the help of pillowcase cleaner, the [facility] team discharge her today. The patient is medically stable. The patient is seen and examined at bedside today. All other revi ew of systems was reviewed with her negative. PHYSICAL EXAMINATION: GENERAL: Currently, temperature 98.5, pulse 82, respiratory rate 18, saturation 97%, blood pressure 168/112, pulse 111, respiratory rate 18. GENERAL: The patient is alert, awake, no acute distress. HEAD: Normocephalic, atraumatic. LUNGS: Clear to auscultation without any rhonchi or rales. CARDIAC: S1, S2 regular without any murmur. ABDOMEN: Colostomy placed surgical site is clean and healthy. Bowel sounds present. EXTREMITIES: No edema. NEUROLOGIC: Nonfocal examination. Overall, the patient is medically stable for discharge today.
== END 2017-08-01 11:31 | disposition home or self-care (01) | DRG 329 ==
LOC: ERS 13:08 → SDC 15:39 → T4-A 16:23 → CCU 17:22 → T4-A 07-20 15:47
PROVIDERS: ADMIT Surgery; ATTEND Surgery
PROC: 0DTG0ZZ Resection of Left Large Intestine, Open Approach (ICD-10-PCS; principal; 2017-07-16)
PROC: 0D1L0Z4 Bypass Transverse Colon to Cutaneous, Open Approach (ICD-10-PCS; 2017-07-16)
PROC: 5A1945Z Respiratory Ventilation, 24-96 Consecutive Hours (ICD-10-PCS; 2017-07-16)
PROC: 02H633Z Insertion of Infusion Device into Right Atrium, Percutaneous Approach (ICD-10-PCS; 2017-07-16)
PROC: 3E0336Z Introduction of Nutritional Substance into Peripheral Vein, Percutaneous Approach (ICD-10-PCS; 2017-07-21)
PROC: 30233N1 Transfusion of Nonautologous Red Blood Cells into Peripheral Vein, Percutaneous Approach (ICD-10-PCS; 2017-07-23)
PROC: 02HV33Z Insertion of Infusion Device into Superior Vena Cava, Percutaneous Approach (ICD-10-PCS; 2017-07-26)
PROC: B548ZZA Ultrasonography of Superior Vena Cava, Guidance (ICD-10-PCS; 2017-07-26)
DX: K55.041 Focal (segmental) acute infarction of large intestine (principal); K63.1 Perforation of intestine (nontraumatic); A41.51 Sepsis due to Escherichia coli [E. coli]; J96.00 Acute respiratory failure, unspecified whether with hypoxia or hypercapnia; R65.21 Severe sepsis with septic shock; K65.0 Generalized (acute) peritonitis; G92 Toxic encephalopathy; E87.2 Acidosis; D62 Acute posthemorrhagic anemia; N17.9 Acute kidney failure, unspecified; K55.9 Vascular disorder of intestine, unspecified; R33.9 Retention of urine, unspecified; Z23 Encounter for immunization; J45.909 Unspecified asthma, uncomplicated; F31.9 Bipolar disorder, unspecified; F41.9 Anxiety disorder, unspecified; E87.6 Hypokalemia; Z90.49 Acquired absence of other specified parts of digestive tract; E87.8 Other disorders of electrolyte and fluid balance, not elsewhere classified; R03.0 Elevated blood-pressure reading, without diagnosis of hypertension; Z87.19 Personal history of other diseases of the digestive system; E86.0 Dehydration
CPT/HCPCS: 36415; 36416; 36430; 36556; 36569; 71010; 74176; 74177; 80048; 80061; 81003; 81015; 82805; 83605; 83735; 84100; 84134; 84443; 85025; 85610; 85730; 86850; 86900; 86901; 87040; 87077; 87086; 87149; 87186; 88307; 90471; 90682; 94002; 94003; 94640; 96365; 96366; 96368; A4216; C1751; G0008; G8978-GP-CM; G8979-GP-CK; G8996-GN-CH; G8997-GN-CH; G8998-GN-CH; J0131; J0360; J0696; J1265; J1644; J1650; J2001; J2060; J2270; J2405; J2543; J2704; J2997; J3010; J3475; J3480; J3486; J7050; J7070; J7620; P9016; P9045; Q2036; S0028

== ENCOUNTER 2017-10-08 21:15 | Inpatient (IN) | payer OTHER ==
[2017-10-08] MEDS ORDERED: diphenhydrAMINE 50 MG/ML VIAL ONE (23:11)
[2017-10-09] MEDS ORDERED: Morphine 4 MG/ML VIAL ONE (00:07)
[2017-10-09] MEDS ORDERED: Morphine 5 mg/5 ml in 0.9% NaCl/PF SYRINGE SLOW IVP PRN (01:02)
[2017-10-09] MEDS ORDERED: Ondansetron ODT 4 MG TAB SL PRN (01:03)
[2017-10-09] MEDS ORDERED: Ondansetron HCl/PF 4 MG/2 ML Vial IVP PRN (01:03)
[2017-10-09] MEDS ORDERED: Acetaminophen 750 MG in Premix Bag 1 BAG IVPB PRN (01:03)
[2017-10-09] MEDS: Sodium Chloride 0.9% 1,000 ML IV SCH ×2 (01:52→08:24)
[2017-10-09] MEDS: Piperacillin/Tazobactam 3.375 GM in Sodium Chloride 0.9% 100 ML IVPB SCH ×2 (01:58→08:50)
[2017-10-09] MEDS ORDERED: Piperacillin/Tazobactam 3.375 GM in Sodium Chloride 0.9% 100 ML IVPB SCH (06:00)
[2017-10-09 07:10] VITALS: BMI 21.2
[2017-10-09] MEDS ORDERED: traMADol HCl 50 MG TAB PO PRN (10:18)
[2017-10-09] MEDS ORDERED: Acetaminophen 500 MG TAB PO SCH (10:30)
[2017-10-09] MEDS: traMADol HCl 50 MG TAB PO PRN ×3 (12:11→22:08)
--- NOTE | 2017-10-09 14:45 | HP ---
HISTORY OF PRESENT ILLNESS: This is a 56-year-old woman who presented with insidious onset of abdominal pain. The patient describes the pain as sharp, epigastric to right upper quadrant and associated with occasional nausea. She is 2 months status post exploratory laparotomy, left hemicole ctomy with end transverse colostomy for ischemic bowel necrosis. The ostomy has been functional. Th e patient was recently seen by her primary surgeon, Dr. Maldonado in the clinic on 10/03/2017, at which t jack the patient was told she has a parastomal hernia, which will require an operative intervention in the future. Currently, she denies any fevers or chills. The last time she emptied her colostomy ap pliance was yesterday and that was consistent with stool and gas. The patient denies any hematochezi a or melena. PAST MEDICAL HISTORY: Pertinent for diverticulosis coli, chronic depression and reactive airway dise ase. PAST SURGICAL HISTORY: Significant for most recent left hemicolectomy with end colostomy on 07/16/20 17. Other surgical history includes a laparoscopic cholecystectomy, total abdominal hysterectomy, strickland rgery to her right arm. SOCIAL HISTORY: The patient is , lives independently. She has a remote history of cigarette smoking. I am unsure as to any ethanol or illicit drug abuse history. PRE-HOSPITALIZATION MEDICATIONS: Includes albuterol inhalation therapy, amitriptyline 100 mg p.o. da meenakshi, clonazepam 1 mg p.o. daily, clonidine 0.1 mg p.o. q.6 hours, gabapentin 600 mg p.o. q.i.d., mecl izine 25 mg p.o. t.i.d., Trileptal 600 mg p.o. b.i.d., Lyrica 100 mg p.o. t.i.d., trazodone 150 mg p. o. at bedtime and ropinirole 1 mg p.o. at bedtime. ALLERGIES: CIPROFLOXACIN, IBUPROFEN, SUMATRIPTAN. REVIEW OF SYSTEMS: Ten-point review of system is essentially unremarkable except for as stated in pa st medical history and chief complaint. PHYSICAL EXAMINATION: GENERAL: This reveals a 56-year-old normally developed woman who is otherwise coherent and interacti ve and appears stated age. The patient is alert and oriented x3. She appears to be in no acute dist ress at the time of my evaluation. VITAL SIGNS: Today includes blood pressure 158/93, pulse is 67, respiratory rate is 12, temperature is 97.6 degrees Fahrenheit, oxygen saturation is 96% on room air. HEENT: Reveals normocephalic and atraumatic. Pupils are equal, round, and reactive to light and acc ommodation. HEART: Reveals regular rate and rhythm, no murmurs or gallops auscultated. LUNGS: Clear to auscultation bilaterally. Breathing is regular and unlabored. ABDOMEN: Soft and nondistended. She has epigastric tenderness to palpation around reducible parasto mal anterior abdominal wall herniation. A midline incision remains intact and healed. She has no gr oss rebound tenderness present. Liver and spleen are otherwise nonpalpable below costal margin. Not e that the colostomy itself is viable and functional with small amount of gas in the pouch. EXTREMITIES: Reveals 2+ radial and pedal pulses bilaterally. The patient has no ankle edema present . NEUROLOGIC: Reveals no focal deficits present. IMAGING: I have personally reviewed the CT scan of the abdomen and pelvis which accompanied the patient from [facility] in [place]. This reveals a non-incarcerated parastomal hernia. I did not see an y other intra-abdominal pathology of acute nature. LABORATORY DATA: Accompanying laboratory studies from [place] includes a CBC with 7300 white blood cells, hemoglobin 1 3.2, hematocrit is 39.3, platelet count is 302,000. Metabolic profile: Sodium 138, potassium is 4.4 , chloride is 101, bicarbonate 26, BUN 18, creatinine 0.71, and glucose 92. AST and ALT normal at 10 and 8 respectively. Serum lipase is also normal at 48. IMPRESSION: 1. Abdominal pain. 2. Parastomal hernia. PLAN: Indications for surgery at this time, we will continue conservative management including clear liquid diet and serial examination. This parastomal hernia; however, requires repair to prevent inc arceration. Above findings and plan discussed with the patient who indicates understanding of information given. I have answered all her questions.
[2017-10-09] MEDS: Acetaminophen 500 MG TAB PO SCH (17:32)
[2017-10-10] MEDS: Acetaminophen 500 MG TAB PO SCH ×4 (00:49→17:39)
--- NOTE | 2017-10-10 11:28 | PRG ---
DATE OF SERVICE: 10/10/2017 SUBJECTIVE: Ms. Ricardo is awake and alert. She reports a 4-5/10 abdominal pain. She denies any milind sea, vomiting. Her colostomy has recorded stool and gas output. OBJECTIVE: VITAL SIGNS: Today includes blood pressure 118/84, pulse 60, respiration rate 18, temperature 97.5 d egrees Fahrenheit Oxygen saturation 98% on room air. HEENT: Reveals normocephalic and atraumatic. The pupils equal, round, reactive to light and accommo dation. HEART: Reveals regular rate and rhythm, no murmurs or gallops auscultated. CHEST: Clear to auscultation bilaterally. Breathing is regular and unlabored. ABDOMEN: Soft and nondistended. There is viable and functional right-sided colostomy with nonincarc erated parastomal hernia palpated with moderate associated tenderness. The patient clearly has no gr oss rebound tenderness present. IMPRESSION: 1. Resolving abdominal pain. 2. Nonincarcerated parastomal hernia. PLAN: Advance diet and activity today. The patient will be reevaluated by her primary surgeon, Dr. Maldonado tomorrow. Meanwhile, there is no a cute surgical indication for this patient at this time.
[2017-10-10] MEDS: PROVENTIL INHALER 6.7 G (200 INHALATIONS) INH SCH ×4 (11:58→22:48)
[2017-10-10] MEDS: cloNIDine 0.1 MG TAB PO SCH ×2 (12:13→17:42)
[2017-10-10] MEDS: traMADol HCl 50 MG TAB PO PRN ×3 (12:13→21:24)
[2017-10-10] MEDS: Pregabalin 50 MG CAP PO SCH ×2 (15:03→21:23)
[2017-10-10] MEDS ORDERED: OXcarbazepine 600 MG TAB PO SCH (21:00)
[2017-10-10] MEDS: OXcarbazepine 300 MG TAB PO SCH (21:22)
[2017-10-10] MEDS: Propranolol 40 MG TAB PO SCH (21:23)
[2017-10-10] MEDS: rOPINIRole HCl 1 MG TAB PO SCH (21:24)
[2017-10-10] MEDS: traZODone HCl 150 MG TAB PO SCH (21:24)
[2017-10-11] MEDS: cloNIDine 0.1 MG TAB PO SCH ×4 (00:33→18:14)
[2017-10-11] MEDS: Acetaminophen 500 MG TAB PO SCH ×4 (00:33→18:10)
[2017-10-11] MEDS: PROVENTIL INHALER 6.7 G (200 INHALATIONS) INH SCH ×6 (02:26→21:27)
[2017-10-11] MEDS: Amitriptyline HCl 100 MG TAB PO SCH (09:10)
[2017-10-11] MEDS: clonazePAM 1 MG TAB PO SCH (09:11)
[2017-10-11] MEDS: OXcarbazepine 300 MG TAB PO SCH ×2 (09:11→20:26)
[2017-10-11] MEDS: Pregabalin 50 MG CAP PO SCH ×3 (09:11→20:26)
[2017-10-11] MEDS: Propranolol 40 MG TAB PO SCH ×2 (09:12→20:27)
[2017-10-11] MEDS: traMADol HCl 50 MG TAB PO PRN ×3 (09:12→20:33)
[2017-10-11] MEDS: Nystatin 500,000 UNITS/5 ML UDCUP SSP SCH ×3 (12:23→20:23)
--- NOTE | 2017-10-11 15:34 | PRG ---
DATE OF SERVICE: 10/11/2017 SUBJECTIVE: Ms. Ricardo is awake and alert. She reports persistent right parastomal abdominal pain. She denies any nausea or vomiting. She did empty stool and gas from ostomy appliance today. OBJECTIVE: VITAL SIGNS: Remained stable. The patient is afebrile through this hospitalization. HEART: Reveals regular rate and rhythm. CHEST: Lungs clear to auscultation bilaterally. Breathing is regular and unlabored. ABDOMEN: Soft, nondistended. Colostomy is viable and functional. The parastomal hernia remains red ucible. The patient clearly has no gross rebound tenderness present. IMPRESSION: Stable parastomal hernia. PLAN: The patient will be seen by Dr. Maldonado today with whom I have been in contact.
[2017-10-11] MEDS ORDERED: Morphine 4 MG/ML VIAL SLOW IVP PRN ×2 (17:24→17:25)
[2017-10-11] MEDS: Ketorolac Tromethamine 30 MG/ML VIAL IVP PRN (18:07)
[2017-10-11] MEDS: traZODone HCl 150 MG TAB PO SCH (20:26)
[2017-10-11] MEDS: rOPINIRole HCl 1 MG TAB PO SCH (20:27)
[2017-10-12] MEDS: Acetaminophen 500 MG TAB PO SCH ×5 (02:24→23:33)
[2017-10-12] MEDS: cloNIDine 0.1 MG TAB PO SCH ×5 (02:24→23:33)
[2017-10-12] MEDS: PROVENTIL INHALER 6.7 G (200 INHALATIONS) INH SCH ×6 (03:11→23:08)
[2017-10-12] MEDS: Ketorolac Tromethamine 30 MG/ML VIAL IVP PRN ×4 (04:05→21:33)
[2017-10-12] MEDS ORDERED: GoLYTELY 4,000 ml Bottle PO SCH (07:00)
[2017-10-12] MEDS: Nystatin 500,000 UNITS/5 ML UDCUP SSP SCH ×4 (08:42→21:21)
[2017-10-12] MEDS: Amitriptyline HCl 100 MG TAB PO SCH (08:43)
[2017-10-12] MEDS: clonazePAM 1 MG TAB PO SCH (08:45)
[2017-10-12] MEDS: Pregabalin 50 MG CAP PO SCH ×3 (08:45→21:25)
[2017-10-12] MEDS: OXcarbazepine 300 MG TAB PO SCH ×2 (08:46→21:19)
[2017-10-12] MEDS: Propranolol 40 MG TAB PO SCH ×2 (08:47→21:21)
[2017-10-12] MEDS: Erythromycin Base 250 MG TAB PO SCH ×3 (10:11→21:21)
[2017-10-12] MEDS: Neomycin 500 mg Tablet PO SCH ×3 (10:12→21:20)
[2017-10-12] MEDS ORDERED: cefOXitin 2 GM in Sodium Chloride 0.9% 100 ML IVPB SCH (17:00)
[2017-10-12] MEDS ORDERED: Fleet Enema 133 ML BOT PR SCH (17:00)
[2017-10-12] MEDS ORDERED: cefOXitin 2 GM, Syringe 1 ML in Sterile Water 10 ML SLOW IVP SCH (17:00)
[2017-10-12] MEDS: traZODone HCl 150 MG TAB PO SCH (21:18)
[2017-10-12] MEDS: rOPINIRole HCl 1 MG TAB PO SCH (21:20)
[2017-10-13] MEDS: PROVENTIL INHALER 6.7 G (200 INHALATIONS) INH SCH ×6 (02:25→20:02)
[2017-10-13] MEDS ORDERED: Morphine 2 MG/ML SYRINGE SLOW IVP PRN (03:15)
[2017-10-13] MEDS ORDERED: Morphine 5 mg/5 ml in 0.9% NaCl/PF SYRINGE SLOW IVP PRN (03:15)
[2017-10-13] MEDS: cloNIDine 0.1 MG TAB PO SCH ×4 (06:19→23:20)
[2017-10-13] MEDS: Acetaminophen 500 MG TAB PO SCH ×4 (06:20→23:23)
[2017-10-13] MEDS ORDERED: Fentanyl 100 MCG/2 ML VIAL ONE ×3 (08:35→12:21)
[2017-10-13] MEDS ORDERED: Midazolam HCl 2 mg/2 ml Vial ONE ×2 (08:35→08:38)
[2017-10-13] MEDS: OXcarbazepine 300 MG TAB PO SCH ×2 (09:26→20:05)
[2017-10-13] MEDS: Nystatin 500,000 UNITS/5 ML UDCUP SSP SCH ×4 (09:26→20:05)
[2017-10-13] MEDS: Amitriptyline HCl 100 MG TAB PO SCH (09:26)
[2017-10-13] MEDS: clonazePAM 1 MG TAB PO SCH (09:26)
[2017-10-13] MEDS: Pregabalin 50 MG CAP PO SCH (09:27)
[2017-10-13] MEDS: Neomycin 500 mg Tablet PO SCH ×3 (09:27→20:07)
[2017-10-13] MEDS: Propranolol 40 MG TAB PO SCH ×2 (09:27→20:06)
[2017-10-13] MEDS ORDERED: Morphine Sulfate 2 MG/ML SYRINGE SLOW IVP PRN (10:25)
[2017-10-13] MEDS ORDERED: HYDROmorphone 2 MG/ML VIAL SLOW IVP PRN (10:25)
[2017-10-13] MEDS ORDERED: Meperidine HCl/PF 25 MG/ML VIAL SLOW IVP PRN (10:25)
[2017-10-13] MEDS ORDERED: Promethazine HCl 25 MG/ML VIAL SLOW IVP PRN (10:25)
[2017-10-13] MEDS ORDERED: cefOXitin 2 GM VIAL ONE (11:13)
[2017-10-13] MEDS ORDERED: Promethazine HCl 25 MG/ML VIAL IM PRN (11:42)
[2017-10-13] MEDS ORDERED: Ondansetron HCl/PF 4 MG/2 ML Vial IVP PRN (11:42)
[2017-10-13] MEDS ORDERED: hydrALAZINE 20 MG/ML VIAL SLOW IVP PRN (11:42)
[2017-10-13] MEDS ORDERED: Fentanyl 5000 MCG/250 ML CADD IVPB PRN (11:57)
[2017-10-13] MEDS ORDERED: diphenhydrAMINE 50 MG/ML VIAL IVP PRN (11:57)
[2017-10-13] MEDS ORDERED: diphenhydrAMINE 50 MG/ML VIAL IM PRN (11:57)
[2017-10-13] MEDS ORDERED: Naloxone HCl 0.4 mg/ml Vial IV PRN (11:57)
[2017-10-13] MEDS ORDERED: Communication Order-Pharmacy FS SCH (12:00)
[2017-10-13] MEDS ORDERED: fentaNYL Citrate/PF 2,000 MCG in Sodium Chloride 0.9% 60 ML IV PRN (12:15)
[2017-10-13] MEDS ORDERED: hydrALAZINE 20 MG/ML VIAL ONE (12:34)
[2017-10-13] MEDS ORDERED: HYDROmorphone 0.5 MG/0.5 ML SYRINGE ONE (12:48)
[2017-10-13] MEDS: Acetaminophen 1,000 MG in Premix Bag 1 BAG IVPB SCH ×3 (13:08→23:20)
[2017-10-13] MEDS ORDERED: cefOXitin 2 GM in Sodium Chloride 0.9% 100 ML IVPB SCH (14:00)
--- NOTE | 2017-10-13 14:12 | OP ---
PREOPERATIVE DIAGNOSIS: Painful parastomal hernia. SURGEON: Juan Maldonado M.D. PROCEDURE PERFORMED: Colostomy reversal and repair of parastomal hernia. INDICATIONS: The patient is a 56-year-old female, who 3 months ago, came in emergent with a col on. Had to have an emergent colon resection and was left with an end colostomy. That has developed a hernia and she came through the emergency room with severe pain; it was not obstructed. She was ab le to be prepped and get ready for surgery. FINDINGS: Parastomal hernia did not contain any bowel at this time. The bowel looked viable. There was no evidence of ischemia. PROCEDURE: After informed consent was obtained, the patient was taken to the operating room and give n general endotracheal anesthesia, placed in lithotomy position. Her abdomen was prepped and draped in the usual fashion. This was after the colostomy was closed at the skin level with a pursestring o f 0 silk suture. A midline incision was performed. Subcu divided sharply and the fascia incised sha rply with a 10-blade scalpel. The abdomen was opened and a lysis of adhesions performed. I was able to get everything out of the pelvis. The rectum was small, but the sutures were visible. There wer e just a couple of centimeters of extraperitoneal colon visible. Then, an elliptical incision was pe rformed around the ostomy. Subcu divided sharply and the ostomy dissected out. Again, lysis of adhe sions was performed to free up this transverse colon to the point where the transverse colon could re ach down into the pelvis. The colon was divided sharply with a 10-blade scalpel. The edges were hel d apart and the 29 EEA anvil was inserted and came out through the side. Then utilizing a FAHAD, the c olon was closed. Hemostasis assured. Then, I went below and inserted the EEA transanally. The spik e was brought out anteriorly and connected to the stapler. This was then closed into the mid green l evel and fired, then removed and donuts checked. Both donuts were complete. A rigid proctoscope was entered into the distal rectum and air insufflated into the rectum under pressure under water. Ther e was a bubble seen anteriorly, so this fluid was removed and I rescrubbed in and placed interrupted 3-0 Vicryl sutures circumferentially to reinforce the staple line and then went back down below again inserted the proctoscope and retested it. This now showed that there was no air leak. The abdomen was thoroughly irrigated and irrigation fluid removed. Hemostasis was assured. The parastomal herni a fascia was closed with interrupted [id number] of #1 Prolene. Then the midline fascia closed w ith a running #1 looped PDS. Then, I regowned and then used the pulse wardrobe attendant to irrigate both inc isions. Then, the hemostasis assured with electrocautery and the skin closed with skin hanh in th e midline. The subcutaneous reapproximated with interrupted 3-0 Vicryl on the right side and then th e skin loosely approximated with skin hanh. Jai were placed in between some of the hanh to f acilitate drainage. Sterile bandages applied. Patient tolerated the procedure well and transferred to recovery in good condition. Sponge and needle count verified correct x2.
[2017-10-13] MEDS: D5 1/2 NS w/20 mEq KCL 1,000 ML IV SCH ×2 (15:27→21:29)
[2017-10-13] MEDS ORDERED: Lidocaine 1% PF 5 ML VIAL ONE (16:42)
[2017-10-13] MEDS ORDERED: Ondansetron HCl/PF 4 MG/2 ML Vial ONE (16:42)
[2017-10-13] MEDS ORDERED: PHENYLEPHRINE-NS 100 MCG/ML 10 ML SYRINGE ONE (16:42)
[2017-10-13] MEDS ORDERED: EPINEPHrine 1 MG/10 ML Abboject SYRINGE ONE (16:42)
[2017-10-13] MEDS ORDERED: ePHEDrine/0.9% NaCl/PF SYRINGE 50 mg/10 ml ONE (16:42)
[2017-10-13] MEDS ORDERED: Dexamethasone 20 MG/5 ML VIAL ONE (16:42)
[2017-10-13] MEDS ORDERED: Succinylcholine Chloride 20 MG/ML 10 ml SYRINGE FS ONE (16:42)
[2017-10-13] MEDS ORDERED: Glycopyrrolate 0.2 MG/ML 5 ML SYRINGE ONE (16:42)
[2017-10-13] MEDS ORDERED: PROPOFOL 200 MG/20 ML VIAL ONE (16:42)
[2017-10-13] MEDS: traZODone HCl 150 MG TAB PO SCH (20:05)
[2017-10-13] MEDS: Famotidine 20 MG TAB PO SCH (20:05)
[2017-10-13] MEDS: rOPINIRole HCl 1 MG TAB PO SCH (20:06)
[2017-10-13] MEDS: Famotidine/PF 20 mg/2ml Vial SLOW IVP SCH (20:07)
[2017-10-13] MEDS: cefOXitin 2 GM, Syringe 1 ML in Sterile Water 10 ML SLOW IVP SCH (22:26)
[2017-10-13] MEDS: Zolpidem Tartrate 5 MG TAB PO PRN (23:23)
[2017-10-14] MEDS: PROVENTIL INHALER 6.7 G (200 INHALATIONS) INH SCH ×6 (00:49→22:56)
[2017-10-14] MEDS: Acetaminophen 1,000 MG in Premix Bag 1 BAG IVPB SCH (03:56)
[2017-10-14] MEDS: D5 1/2 NS w/20 mEq KCL 1,000 ML IV SCH ×3 (03:56→21:07)
[2017-10-14] MEDS: cefOXitin 2 GM, Syringe 1 ML in Sterile Water 10 ML SLOW IVP SCH ×3 (03:56→20:46)
[2017-10-14] MEDS: diphenhydrAMINE 25 MG CAP PO PRN (04:06)
[2017-10-14 05:08] LABS: #Lymphocytes 1.7 thou/uL (1.20-3.40); #Monocytes 1.4 thou/uL (0.11-0.59); #Neutrophils 11.8 thou/uL (1.40-6.50); %Basophils 0.2 % (0.0-1.0); %Eosinophils 0.2 % (0.0-10.0); %Lymphocytes 11.6 % (21.0-51.0); %Monocytes 9.1 % (0.0-10.0); %Neutrophils 78.9 % (42.0-75.0); Mean Corpuscular Hemoglobin 32.2 pg (27.0-31.0); Mean Corpuscular Volume 97.8 fl (81.0-99.0); Mean Platelet Volume 7.3 fL (7.4-10.4); Platelet Count 387 thou/uL (130-400); RBC Distribution Width 14.1 % (11.5-14.5); Red Blood Cell (RBC) Count 4.36 mill/uL (4.20-5.40); White Blood Cell (WBC) Count 14.9 thou/uL (4.8-10.8)
[2017-10-14 05:24] LABS: Anion Gap 13 mmol/L (10-20); BUN (Urea Nitrogen) 12 mg/dL (9.8-20.1); Calc. Creatinine Clearance 72 mL/min (70-130); Calcium 9.8 mg/dL (7.8-10.44); Carbon Dioxide 24 mmol/L (22-29); Chloride 100 mmol/L (98-107); Estimated GFR-MDRD 81; Glucose 106 mg/dL (70-105); Sodium 132 mmol/L (136-145)
[2017-10-14] MEDS: Acetaminophen 500 MG TAB PO SCH ×4 (05:36→23:29)
[2017-10-14] MEDS: cloNIDine 0.1 MG TAB PO SCH ×4 (05:36→23:29)
[2017-10-14] MEDS: Ketorolac Tromethamine 30 MG/ML VIAL IVP PRN ×2 (08:48→23:28)
[2017-10-14] MEDS: Ondansetron HCl/PF 4 MG/2 ML Vial IVP PRN (08:49)
[2017-10-14] MEDS: OXcarbazepine 300 MG TAB PO SCH ×2 (08:53→20:50)
[2017-10-14] MEDS: Nystatin 500,000 UNITS/5 ML UDCUP SSP SCH ×4 (08:53→20:49)
[2017-10-14] MEDS: Enoxaparin Sodium 40 MG/0.4 ML SYRINGE SC SCH (08:54)
[2017-10-14] MEDS: Famotidine/PF 20 mg/2ml Vial SLOW IVP SCH ×2 (08:54→20:48)
[2017-10-14] MEDS: Famotidine 20 MG TAB PO SCH ×2 (08:54→20:49)
[2017-10-14] MEDS: Amitriptyline HCl 100 MG TAB PO SCH (08:54)
[2017-10-14] MEDS: Neomycin 500 mg Tablet PO SCH (08:55)
[2017-10-14] MEDS ORDERED: Sodium Chloride 0.9% 500 ML IV SCH (10:00)
[2017-10-14] MEDS: Propranolol 40 MG TAB PO SCH ×2 (11:47→20:52)
[2017-10-14] MEDS ORDERED: cefOXitin 2 GM, Syringe 1 ML in Sterile Water 10 ML SLOW IVP SCH (14:00)
[2017-10-14] MEDS ORDERED: cefOXitin 2 GM in Sodium Chloride 0.9% 100 ML IVPB SCH (14:00)
[2017-10-14] MEDS: rOPINIRole HCl 1 MG TAB PO SCH (20:50)
[2017-10-14] MEDS: traZODone HCl 150 MG TAB PO SCH (20:51)
[2017-10-15] MEDS: PROVENTIL INHALER 6.7 G (200 INHALATIONS) INH SCH ×6 (02:06→22:41)
[2017-10-15] MEDS: cefOXitin 2 GM, Syringe 1 ML in Sterile Water 10 ML SLOW IVP SCH ×2 (03:20→11:49)
[2017-10-15] MEDS: D5 1/2 NS w/20 mEq KCL 1,000 ML IV SCH ×2 (05:58→12:56)
[2017-10-15] MEDS: cloNIDine 0.1 MG TAB PO SCH ×3 (05:58→17:36)
[2017-10-15] MEDS: Acetaminophen 500 MG TAB PO SCH ×3 (05:58→17:36)
[2017-10-15] MEDS: Famotidine/PF 20 mg/2ml Vial SLOW IVP SCH ×2 (08:56→23:13)
[2017-10-15] MEDS: OXcarbazepine 300 MG TAB PO SCH ×2 (08:56→21:33)
[2017-10-15] MEDS: Nystatin 500,000 UNITS/5 ML UDCUP SSP SCH ×4 (08:56→21:32)
[2017-10-15] MEDS: Amitriptyline HCl 100 MG TAB PO SCH (08:56)
[2017-10-15] MEDS: Enoxaparin Sodium 40 MG/0.4 ML SYRINGE SC SCH (08:56)
[2017-10-15] MEDS: Propranolol 40 MG TAB PO SCH ×2 (08:56→21:33)
[2017-10-15] MEDS: Famotidine 20 MG TAB PO SCH ×2 (08:57→23:13)
[2017-10-15] MEDS: rOPINIRole HCl 1 MG TAB PO SCH (21:33)
[2017-10-15] MEDS: traZODone HCl 150 MG TAB PO SCH (21:38)
[2017-10-16] MEDS: Acetaminophen 500 MG TAB PO SCH ×4 (00:56→18:14)
[2017-10-16] MEDS: cloNIDine 0.1 MG TAB PO SCH ×4 (00:56→18:13)
[2017-10-16] MEDS: D5 1/2 NS w/20 mEq KCL 1,000 ML IV SCH ×4 (04:08→21:57)
[2017-10-16 05:40] LABS: #Eosinphils 0.2 thou/uL (0.0-0.7); #Lymphocytes 1.3 thou/uL (1.20-3.40); #Monocytes 0.9 thou/uL (0.11-0.59); #Neutrophils 6.7 thou/uL (1.40-6.50); %Basophils 0.3 % (0.0-1.0); %Eosinophils 2.3 % (0.0-10.0); %Lymphocytes 13.9 % (21.0-51.0); %Monocytes 9.6 % (0.0-10.0); %Neutrophils 73.9 % (42.0-75.0); Hemoglobin 9.3 g/dL (12.0-16.0); Mean Corpuscular Hemoglobin 32.3 pg (27.0-31.0); Platelet Count 240 thou/uL (130-400); RBC Distribution Width 13.4 % (11.5-14.5); Red Blood Cell (RBC) Count 2.88 mill/uL (4.20-5.40); White Blood Cell (WBC) Count 9.1 thou/uL (4.8-10.8)
[2017-10-16] MEDS: Propranolol 40 MG TAB PO SCH ×2 (08:17→21:46)
[2017-10-16] MEDS: OXcarbazepine 300 MG TAB PO SCH ×2 (08:17→21:46)
[2017-10-16] MEDS: Amitriptyline HCl 100 MG TAB PO SCH (08:17)
[2017-10-16] MEDS: Famotidine 20 MG TAB PO SCH (08:17)
[2017-10-16] MEDS: Nystatin 500,000 UNITS/5 ML UDCUP SSP SCH ×5 (08:18→21:46)
[2017-10-16] MEDS: Famotidine/PF 20 mg/2ml Vial SLOW IVP SCH ×2 (08:18→21:46)
[2017-10-16] MEDS: PROVENTIL INHALER 6.7 G (200 INHALATIONS) INH SCH ×6 (08:23→22:25)
[2017-10-16] MEDS: Enoxaparin Sodium 40 MG/0.4 ML SYRINGE SC SCH (08:34)
[2017-10-16] MEDS: Ondansetron HCl/PF 4 MG/2 ML Vial IVP PRN (13:20)
[2017-10-16] MEDS: rOPINIRole HCl 1 MG TAB PO SCH (21:46)
[2017-10-16] MEDS: traZODone HCl 150 MG TAB PO SCH (21:47)
[2017-10-17] MEDS: cloNIDine 0.1 MG TAB PO SCH ×5 (00:22→23:21)
[2017-10-17] MEDS: Acetaminophen 500 MG TAB PO SCH ×3 (00:23→12:22)
[2017-10-17] MEDS: Famotidine 20 MG TAB PO SCH ×3 (00:26→20:21)
[2017-10-17] MEDS: PROVENTIL INHALER 6.7 G (200 INHALATIONS) INH SCH ×2 (04:37→06:43)
[2017-10-17] MEDS ORDERED: PROVENTIL INHALER 6.7 G (200 INHALATIONS) INH PRN (07:00)
[2017-10-17] MEDS: OXcarbazepine 300 MG TAB PO SCH ×2 (08:49→20:21)
[2017-10-17] MEDS: Amitriptyline HCl 100 MG TAB PO SCH (08:49)
[2017-10-17] MEDS: Enoxaparin Sodium 40 MG/0.4 ML SYRINGE SC SCH (08:49)
[2017-10-17] MEDS: Propranolol 40 MG TAB PO SCH ×3 (08:49→20:21)
[2017-10-17] MEDS: Famotidine/PF 20 mg/2ml Vial SLOW IVP SCH (08:50)
[2017-10-17] MEDS: Nystatin 500,000 UNITS/5 ML UDCUP SSP SCH ×4 (08:50→20:21)
[2017-10-17] MEDS: D5 1/2 NS w/20 mEq KCL 1,000 ML IV SCH (08:50)
--- NOTE | 2017-10-17 09:55 | RAD ---
KUB: Date: 10-17-2017 Comparison: None. History: Status post colostomy reversal. Evaluate for colonic gas. FINDINGS: There is a suture line overlying the lower sacrum just to the right of midline. There are clips in th e right upper quadrant suggesting prior cholecystectomy. Vertically oriented cutaneous hanh overli e the midline abdomen and pelvis and vertically oriented cutaneous hanh overlie the midright abdom en. There is gas within the colon in the region of the cecum, ascending colon, and proximal transvers e colon. The bowel gas pattern appears nonobstructed, limited in assessment on supine imaging. Questi onable small volume free intraperitoneal air beneath the bilateral hemidiaphragms, consistent with po st-operative change. IMPRESSION: There is gas within the colon from the level of the cecum to the level of the mid transverse colon. POS: SANTA
[2017-10-17] MEDS ORDERED: NIFEdipine XL 30 MG TAB PO PRN (13:40)
[2017-10-17] MEDS ORDERED: cloNIDine 0.1 MG TAB PO PRN (13:41)
[2017-10-17] MEDS ORDERED: Acetaminophen 500 MG TAB PO PRN (14:38)
[2017-10-17] MEDS: HYDROcodone/Acetaminophen 10/325 mg Tablet PO PRN ×2 (15:14→20:20)
[2017-10-17] MEDS: traZODone HCl 150 MG TAB PO SCH (20:21)
[2017-10-17] MEDS: rOPINIRole HCl 1 MG TAB PO SCH (20:21)
--- NOTE | 2017-10-17 22:24 | PDOC.PN ---
- Subjective Encounter Start Date: 10/17/17 Encounter Start Time: 14:00 Patient seen and examined. Consult for uncontrolled HTN. Takes Propanolol 40 mg BID with Clonidine PRN. - Objective MAR Reviewed: Yes Vital Signs & Weight: Vital Signs (12 hours) Temp Pulse Resp BP BP Pulse Ox 10/17/17 21:48 98.0 F 66 16 135/88 98 10/17/17 17:49 161/98 H 10/17/17 16:00 97.7 F 68 16 151/99 H 99 10/17/17 15:13 161/98 H 10/17/17 12:22 161/98 H 10/17/17 11:47 98.0 F 68 16 163/109 H 99 Weight Weight 120 lb 2.431 oz I&O: 10/16/17 10/17/17 10/18/17 06:59 06:59 06:59 Intake Total 2980 1150 Output Total 5 Balance 2975 1150 Result Diagrams: 10/16/17 05:17 10/19/17 05:47 Radiology Reviewed by me: Yes (KUB - No obstruction) EKG Reviewed by me: Yes (Tele strips - SR) Phys Exam - Physical Examination Constitutional: NAD Respiratory: no wheezing, no rhonchi Cardiovascular: RRR, no rub Gastrointestinal: soft, non-tender, positive bowel sounds Musculoskeletal: no edema Dx/Plan - Plan DVT proph w/SCDs IMPRESSION: 1. HTN - uncontrolled PLAN: * Change Propanolol to 40 mg TID * Cont Clonidine 0.1 mg Q6hr * PRN meds for SBP >180 * Will follow. Thank you for this consultation. Review of Systems - Review of Systems Respiratory: negative: Cough, Dry, Shortness of Breath, Hemoptysis, SOB with Excertion, Pleuritic Pain, Sputum, Wheezing Cardiovascular: negative: chest pain, palpitations, orthopnea, paroxysmal nocturnal dyspnea, edema, light headedness Gastrointestinal: negative: Nausea, Vomiting, Abdominal Pain, Diarrhea, Constipation, Melena, Hematochezia, Other Neurological: negative: Weakness, Numbness, Incoordination, Change in Speech, Confusion, Seizures - Medications/Allergies Allergies/Adverse Reactions: Allergies Allergy/AdvReac Type Severity Reaction Status Date / Time ciprofloxacin [From Cipro] Allergy Verified 10/09/17 07:07 ibuprofen Allergy Verified 10/09/17 07:07 latex Allergy Verified 10/09/17 07:07 sumatriptan [From Imitrex] Allergy Verified 10/09/17 07:07 sumatriptan succinate Allergy Verified 10/09/17 07:07 [From Imitrex] ciprofloxacin HCl AdvReac Mild Verified 10/11/17 16:46 [From Cipro] Medications: Current Medications Acetaminophen (Tylenol) 1,000 mg PO Q6H PRN PRN Reason: . Hydrocodone Bitart/Acetaminophen (Conetoe 10/325) 1 tab PO Q4H PRN PRN Reason: PAIN SCALE 1-5 Last Admin: 10/17/17 20:20 Dose: 1 tab Hydrocodone Bitart/Acetaminophen (Conetoe 10/325) 2 tab PO Q4H PRN PRN Reason: PAIN SCALE 6-10 Albuterol Sulfate (Proventil Hfa) 2 puff INH Q4H PRN PRN Reason: SOB &/or Wheezing Albuterol/Ipratropium (Duoneb) 3 ml NEB Q4H PRN PRN Reason: Wheezing Albuterol/Ipratropium (Duoneb) 3 ml NEB C5MG-NS PRN PRN Reason: SOB &/or Wheezing Amitriptyline HCl (Elavil) 100 mg PO DAILY [facility] Last Admin: 10/17/17 08:49 Dose: 100 mg Clonidine (Catapres) 0.1 mg PO Q6HR [facility] Last Admin: 10/17/17 17:49 Dose: 0.1 mg Clonidine (Catapres) 0.1 mg PO Q4H PRN PRN Reason: Systolic BP > 180/ DBP >100 Diphenhydramine HCl (Benadryl) 25 mg IVP Q3H PRN PRN Reason: Itching Last Admin: 10/14/17 21:07 Dose: 25 mg Diphenhydramine HCl (Benadryl) 25 mg PO Q3H PRN PRN Reason: Itching Last Admin: 10/14/17 04:06 Dose: 25 mg Diphenhydramine HCl (Benadryl) 25 mg IM Q3H PRN PRN Reason: Itching Enoxaparin Sodium (Lovenox) 40 mg SC 0900 [facility] Last Admin: 10/17/17 08:49 Dose: 40 mg Famotidine (Pepcid) 20 mg PO Q12HR [facility] Last Admin: 10/17/17 20:21 Dose: 20 mg Hydralazine HCl (Apresoline) 10 mg SLOW IVP Q4H PRN PRN Reason: SBP > 170 or DBP > 100 Naloxone HCl (Narcan) 0.2 mg IV Q5MIN PRN PRN Reason: Opiate Reversal Nifedipine (Procardia Xl) 30 mg PO BID PRN PRN Reason: SBP Greater Than 180 Last Admin: 10/17/17 15:13 Dose: 30 mg Nystatin (Mycostatin) 500,000 units SSP QID [facility] Last Admin: 10/17/17 20:21 Dose: 500,000 units Ondansetron HCl (Zofran) 4 mg IVP Q6H PRN PRN Reason: Nausea/Vomiting Last Admin: 10/16/17 13:20 Dose: 4 mg Oxcarbazepine (Trileptal) 600 mg PO BID [facility] Last Admin: 10/17/17 20:21 Dose: 600 mg Promethazine HCl (Phenergan) 12.5 mg IM Q4H PRN PRN Reason: Nausea/Vomiting Propranolol HCl (Inderal) 40 mg PO TID [facility] Last Admin: 10/17/17 20:21 Dose: 40 mg Ropinirole HCl (Requip) 1 mg PO HS [facility] Last Admin: 10/17/17 20:21 Dose: 1 mg Sodium Chloride (Flush - Normal Saline) 10 ml IVF PRN PRN PRN Reason: Saline Flush Trazodone HCl (Desyrel) 150 mg PO HS [facility] Last Admin: 10/17/17 20:21 Dose: 150 mg Zolpidem Tartrate (Ambien) 5 mg PO HSPRN PRN PRN Reason: Insomnia Last Admin: 10/13/17 23:23 Dose: 5 mg
[2017-10-17] MEDS: diphenhydrAMINE 25 MG CAP PO PRN (23:22)
[2017-10-18] MEDS: Promethazine HCl 25 MG/ML VIAL IM PRN ×4 (02:20→19:59)
[2017-10-18] MEDS: cloNIDine 0.1 MG TAB PO SCH ×4 (05:48→23:53)
[2017-10-18] MEDS: HYDROcodone/Acetaminophen 10/325 mg Tablet PO PRN ×2 (05:51→21:57)
[2017-10-18 06:49] LABS: Albumin 3.9 g/dL (3.5-5.0); Anion Gap 17 mmol/L (10-20); BUN (Urea Nitrogen) 5 mg/dL (9.8-20.1); BUN/Creatinine Ratio 8.77; Calc. Creatinine Clearance 94 mL/min (70-130); Calcium 10.2 mg/dL (7.8-10.44); Carbon Dioxide 20 mmol/L (22-29); Chloride 84 mmol/L (98-107); Estimated GFR-MDRD Greater than 90; Glucose 108 mg/dL (70-105); Magnesium 1.7 mg/dL (1.6-2.6); Phosphorus 3.2 mg/dL (2.3-4.7); Potassium 3.9 mmol/L (3.5-5.1)
[2017-10-18 06:54] LABS: Sodium 117 mmol/L (136-145)
[2017-10-18 08:26] LABS: Anion Gap 16 mmol/L (10-20); BUN (Urea Nitrogen) 5 mg/dL (9.8-20.1); Calc. Creatinine Clearance 85 mL/min (70-130); Calcium 10.2 mg/dL (7.8-10.44); Carbon Dioxide 17 mmol/L (22-29); Chloride 85 mmol/L (98-107); Estimated GFR-MDRD Greater than 90; Glucose 108 mg/dL (70-105); Potassium 4.4 mmol/L (3.5-5.1)
[2017-10-18 08:31] LABS: Sodium 114 mmol/L (136-145)
[2017-10-18 08:39] LABS: Thyroid Stimulating Hormone 1.7041 uIU/mL (0.35-4.94)
[2017-10-18] MEDS: Propranolol 40 MG TAB PO SCH ×3 (08:52→21:59)
[2017-10-18] MEDS: Famotidine 20 MG TAB PO SCH ×2 (08:52→22:01)
[2017-10-18] MEDS: Amitriptyline HCl 100 MG TAB PO SCH (08:52)
[2017-10-18] MEDS: OXcarbazepine 300 MG TAB PO SCH ×2 (08:53→22:01)
[2017-10-18] MEDS: Nystatin 500,000 UNITS/5 ML UDCUP SSP SCH ×4 (08:53→21:59)
[2017-10-18] MEDS: Enoxaparin Sodium 40 MG/0.4 ML SYRINGE SC SCH (08:53)
[2017-10-18 09:39] LABS: Sodium, Urine 57 mmol/L (Not Available)
[2017-10-18 10:20] LABS: Osmolality, Urine 269 mOsm/kg (300-900)
[2017-10-18 10:21] LABS: Osmolality, Serum 248 mOsm/kg (280-295)
--- NOTE | 2017-10-18 14:23 | CON ---
DATE OF CONSULTATION: 10/18/2017 CONSULTING PHYSICIAN: Ty Ramos M.D. REQUESTING PHYSICIAN: Dr. Palencia REASON FOR CONSULTATION: Hyponatremia. IMPRESSION: 1. Hyponatremia. 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 2. Hyponatremia, likely in the context of the problem above. PLAN: 1. I do agree with the discontinuation of the 5% dextrose half normal saline. 2. Urine osmolarity, urine sodium have been checked, somewhat consistent with syndrome of inappropri ate antidiuretic hormone secretion. 3. Change this patient's diet to high protein regular diet. 4. Avoid excessive free water intake. 5. Repeat the sodium level and make adjustments accordingly. At this time, we will hold off on usin g Vaprisol unless these conservative measures do not work. HISTORY OF PRESENT ILLNESS: History is that of a 56-year-old female patient who presented here with abdominal discomfort. The patient also had her ostomy parastomal hernia which required some surgical fixation. On 10/14/2017 the patient noted with a sodium level of 132; however, this has not been re peated until this morning when sodium level was noted to be 117, a repeat showed a sodium level to fuentes ve dropped down to 114. Of note, the patient has been on 5% dextrose half normal saline up until yes terday. As a result of this finding, decision has been taken to involve Renal in the management of t his case. PAST MEDICAL HISTORY: Diverticulosis, chronic depression, reactive airway disease, status post bowel resection. SOCIAL HISTORY: Remote history of tobacco use. No alcohol, no illicit drug use. MEDICATIONS: Reviewed as documented on [employer]. ALLERGIES: CIPRO, IBUPROFEN, SUMITRIPTAN. FAMILY HISTORY: None significantly related to the presenting illness. PHYSICAL EXAMINATION: GENERAL: The patient was found not to be in any obvious distress. VITAL SIGNS: Afebrile with temperature 98.5, pulse 75, respiratory rate 17, blood pressure 135/93, O 2 sat 100%. HEENT: Unremarkable. Moist oral mucosa. Neck was supple. No conjunctival injection or icterus. CARDIOVASCULAR SYSTEM: First and second heart sounds were heard. RESPIRATORY SYSTEM: Clear to auscultation. DIGESTIVE SYSTEM: Revealed a benign abdomen with positive bowel sounds. EXTREMITIES: No peripheral edema. SKIN: No new gross rash. LYMPHATICS: No peripheral lymphadenopathy. SUMMARY: A 56-year-old female patient who presented here with abdominal pain and now experiencing wo rsening hyponatremia. Thank you for this consultation. We will follow with you.
[2017-10-18 18:19] LABS: Sodium 119 mmol/L (136-145)
--- NOTE | 2017-10-18 21:23 | PDOC.PN ---
- Subjective Encounter Start Date: 10/18/17 Encounter Start Time: 14:30 Patient seen and examined. No new complaints. No overnight events - Objective MAR Reviewed: Yes Vital Signs & Weight: Vital Signs (12 hours) Temp Pulse Resp BP BP Pulse Ox 10/18/17 21:21 97.6 F 77 18 98 10/18/17 18:08 154/101 H 10/18/17 16:00 98.3 F 88 18 149/94 H 98 10/18/17 12:19 135/93 H 10/18/17 12:00 98.5 F 75 17 148/98 H 100 Weight Weight 120 lb 2.431 oz I&O: 10/17/17 10/18/17 10/19/17 06:59 06:59 06:59 Intake Total 1650 Output Total 50 Balance 1600 Result Diagrams: 10/16/17 05:17 10/19/17 05:47 Phys Exam - Physical Examination Constitutional: NAD Respiratory: no wheezing, no rhonchi Cardiovascular: RRR, no rub Gastrointestinal: soft, non-tender, positive bowel sounds Musculoskeletal: no edema Neurological: moves all 4 limbs Dx/Plan - Plan DVT proph w/SCDs IMPRESSION: 1. HTN - uncontrolled 2. 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 PLAN: * Consult Nephrology * Cont Propanolol 40 mg TID * Cont Clonidine 0.1 mg Q6hr - hold for SBP < 120 * Cont PRN meds for SBP >180 Laboratory Tests 10/18/17 10/18/17 09:00 09:48 Serum Osmolality 248 L* Urine Osmolality 269 L Urine Sodium 57 Review of Systems - Review of Systems Respiratory: negative: Cough, Dry, Shortness of Breath, Hemoptysis, SOB with Excertion, Pleuritic Pain, Sputum, Wheezing Cardiovascular: negative: chest pain, palpitations, orthopnea, paroxysmal nocturnal dyspnea, edema, light headedness - Medications/Allergies Allergies/Adverse Reactions: Allergies Allergy/AdvReac Type Severity Reaction Status Date / Time ciprofloxacin [From Cipro] Allergy Verified 10/09/17 07:07 ibuprofen Allergy Verified 10/09/17 07:07 latex Allergy Verified 10/09/17 07:07 sumatriptan [From Imitrex] Allergy Verified 10/09/17 07:07 sumatriptan succinate Allergy Verified 10/09/17 07:07 [From Imitrex] ciprofloxacin HCl AdvReac Mild Verified 10/11/17 16:46 [From Cipro] Medications: Current Medications Acetaminophen (Tylenol) 1,000 mg PO Q6H PRN PRN Reason: . Hydrocodone Bitart/Acetaminophen ([place] 10/325) 1 tab PO Q4H PRN PRN Reason: PAIN SCALE 1-5 Last Admin: 10/17/17 20:20 Dose: 1 tab Hydrocodone Bitart/Acetaminophen ([place] 10/325) 2 tab PO Q4H PRN PRN Reason: PAIN SCALE 6-10 Last Admin: 10/18/17 05:51 Dose: 2 tab Albuterol Sulfate (Proventil Hfa) 2 puff INH Q4H PRN PRN Reason: SOB &/or Wheezing Albuterol/Ipratropium (Duoneb) 3 ml NEB Q4H PRN PRN Reason: Wheezing Albuterol/Ipratropium (Duoneb) 3 ml NEB [id number] PRN PRN Reason: SOB &/or Wheezing Clonidine (Catapres) 0.1 mg PO Q6HR [facility] Last Admin: 10/18/17 18:08 Dose: 0.1 mg Clonidine (Catapres) 0.1 mg PO Q4H PRN PRN Reason: Systolic BP > 180/ DBP >100 Diphenhydramine HCl (Benadryl) 25 mg IVP Q3H PRN PRN Reason: Itching Last Admin: 10/14/17 21:07 Dose: 25 mg Diphenhydramine HCl (Benadryl) 25 mg PO Q3H PRN PRN Reason: Itching Last Admin: 10/17/17 23:22 Dose: 25 mg Diphenhydramine HCl (Benadryl) 25 mg IM Q3H PRN PRN Reason: Itching Enoxaparin Sodium (Lovenox) 40 mg SC 0900 [facility] Last Admin: 10/18/17 08:53 Dose: 40 mg Famotidine (Pepcid) 20 mg PO Q12HR [facility] Last Admin: 10/18/17 08:52 Dose: 20 mg Hydralazine HCl (Apresoline) 10 mg SLOW IVP Q4H PRN PRN Reason: SBP > 170 or DBP > 100 Naloxone HCl (Narcan) 0.2 mg IV Q5MIN PRN PRN Reason: Opiate Reversal Nifedipine (Procardia Xl) 30 mg PO BID PRN PRN Reason: SBP Greater Than 180 Last Admin: 10/17/17 15:13 Dose: 30 mg Nystatin (Mycostatin) 500,000 units SSP QID [facility] Last Admin: 10/18/17 17:06 Dose: Not Given Ondansetron HCl (Zofran) 4 mg IVP Q6H PRN PRN Reason: Nausea/Vomiting Last Admin: 10/16/17 13:20 Dose: 4 mg Oxcarbazepine (Trileptal) 600 mg PO BID [facility] Last Admin: 10/18/17 08:53 Dose: 600 mg Promethazine HCl (Phenergan) 12.5 mg IM Q4H PRN PRN Reason: Nausea/Vomiting Last Admin: 10/18/17 19:59 Dose: 12.5 mg Propranolol HCl (Inderal) 40 mg PO TID [facility] Last Admin: 10/18/17 17:06 Dose: 40 mg Ropinirole HCl (Requip) 1 mg PO [facility] Last Admin: 10/17/17 20:21 Dose: 1 mg Sodium Chloride (Flush - Normal Saline) 10 ml IVF PRN PRN PRN Reason: Saline Flush Trazodone HCl (Desyrel) 150 mg PO HS [facility] Last Admin: 10/17/17 20:21 Dose: 150 mg Zolpidem Tartrate (Ambien) 5 mg PO HSPRN PRN PRN Reason: Insomnia Last Admin: 10/13/17 23:23 Dose: 5 mg
[2017-10-18] MEDS: rOPINIRole HCl 1 MG TAB PO SCH (22:00)
[2017-10-18] MEDS: traZODone HCl 150 MG TAB PO SCH (22:00)
[2017-10-19] MEDS: HYDROcodone/Acetaminophen 10/325 mg Tablet PO PRN ×4 (03:27→21:09)
[2017-10-19] MEDS: cloNIDine 0.1 MG TAB PO SCH ×4 (05:24→21:11)
[2017-10-19] MEDS: Promethazine HCl 25 MG/ML VIAL IM PRN ×2 (06:12→22:07)
[2017-10-19 06:34] LABS: Anion Gap 15 mmol/L (10-20); BUN (Urea Nitrogen) 12 mg/dL (9.8-20.1); Calc. Creatinine Clearance 68 mL/min (70-130); Calcium 10.2 mg/dL (7.8-10.44); Carbon Dioxide 24 mmol/L (22-29); Chloride 84 mmol/L (98-107); Estimated GFR-MDRD 76; Glucose 146 mg/dL (70-105); Potassium 3.7 mmol/L (3.5-5.1)
[2017-10-19 06:44] LABS: Sodium 119 mmol/L (136-145)
[2017-10-19] MEDS: Famotidine 20 MG TAB PO SCH ×2 (09:08→22:02)
[2017-10-19] MEDS: OXcarbazepine 300 MG TAB PO SCH ×2 (09:08→22:02)
[2017-10-19] MEDS: Nystatin 500,000 UNITS/5 ML UDCUP SSP SCH ×4 (09:08→21:07)
[2017-10-19] MEDS: Propranolol 40 MG TAB PO SCH ×3 (09:09→22:02)
[2017-10-19] MEDS: Enoxaparin Sodium 40 MG/0.4 ML SYRINGE SC SCH (10:38)
--- NOTE | 2017-10-19 14:37 | PDOC.PN ---
- Subjective Encounter Start Date: 10/19/17 Encounter Start Time: 13:00 Patient seen and examined. No new complaints. No overnight events - Objective MAR Reviewed: Yes Vital Signs & Weight: Vital Signs (12 hours) Temp Pulse Resp BP BP Pulse Ox 10/19/17 12:18 97.9 F 83 14 115/81 99 10/19/17 12:14 115/81 10/19/17 09:00 97.6 F 83 18 122/86 99 10/19/17 05:24 131/92 H 10/19/17 03:56 97.9 F 79 16 124/92 H 99 Weight Admit Weight 120 lb 2.416 oz Weight 120 lb 2.416 oz I&O: 10/18/17 10/19/17 10/20/17 06:59 06:59 06:59 Intake Total 1650 600 Output Total 50 Balance 1600 600 Result Diagrams: 10/16/17 05:17 10/19/17 05:47 Phys Exam - Physical Examination Constitutional: NAD Respiratory: no wheezing, no rhonchi Cardiovascular: RRR, no rub Gastrointestinal: soft, positive bowel sounds Musculoskeletal: no edema Neurological: moves all 4 limbs Dx/Plan - Plan DVT proph w/SCDs IMPRESSION: 1. HTN - better controlled 2. 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 PLAN: * Nephrology following * Cont Propanolol 40 mg TID * Changed Clonidine 0.1 mg tid - hold for SBP < 130 * Cont other PRN meds for SBP >180 * Will follow Review of Systems - Review of Systems Respiratory: negative: Cough, Dry, Shortness of Breath, Hemoptysis, SOB with Excertion, Pleuritic Pain, Sputum, Wheezing Cardiovascular: negative: chest pain, palpitations, orthopnea, paroxysmal nocturnal dyspnea, edema, light headedness - Medications/Allergies Allergies/Adverse Reactions: Allergies Allergy/AdvReac Type Severity Reaction Status Date / Time ciprofloxacin [From Cipro] Allergy Verified 10/09/17 07:07 ibuprofen Allergy Verified 10/09/17 07:07 latex Allergy Verified 10/09/17 07:07 sumatriptan [From Imitrex] Allergy Verified 10/09/17 07:07 sumatriptan succinate Allergy Verified 10/09/17 07:07 [From Imitrex] ciprofloxacin HCl AdvReac Mild Verified 10/11/17 16:46 [From Cipro] Medications: Current Medications Acetaminophen (Tylenol) 1,000 mg PO Q6H PRN PRN Reason: . Hydrocodone Bitart/Acetaminophen ([place] 10/325) 1 tab PO Q4H PRN PRN Reason: PAIN SCALE 1-5 Last Admin: 10/17/17 20:20 Dose: 1 tab Hydrocodone Bitart/Acetaminophen ([place] 10/325) 2 tab PO Q4H PRN PRN Reason: PAIN SCALE 6-10 Last Admin: 10/19/17 09:50 Dose: 2 tab Albuterol Sulfate (Proventil Hfa) 2 puff INH Q4H PRN PRN Reason: SOB &/or Wheezing Albuterol/Ipratropium (Duoneb) 3 ml NEB Q4H PRN PRN Reason: Wheezing Albuterol/Ipratropium (Duoneb) 3 ml NEB [id number] PRN PRN Reason: SOB &/or Wheezing Clonidine (Catapres) 0.1 mg PO Q4H PRN PRN Reason: Systolic BP > 180/ DBP >100 Clonidine (Catapres) 0.1 mg PO TID [facility] Diphenhydramine HCl (Benadryl) 25 mg IVP Q3H PRN PRN Reason: Itching Last Admin: 10/14/17 21:07 Dose: 25 mg Diphenhydramine HCl (Benadryl) 25 mg PO Q3H PRN PRN Reason: Itching Last Admin: 10/17/17 23:22 Dose: 25 mg Diphenhydramine HCl (Benadryl) 25 mg IM Q3H PRN PRN Reason: Itching Enoxaparin Sodium (Lovenox) 40 mg SC 0900 [facility] Last Admin: 10/19/17 10:38 Dose: 40 mg Famotidine (Pepcid) 20 mg PO Q12HR [facility] Last Admin: 10/19/17 09:08 Dose: 20 mg Hydralazine HCl (Apresoline) 10 mg SLOW IVP Q4H PRN PRN Reason: SBP > 170 or DBP > 100 Naloxone HCl (Narcan) 0.2 mg IV Q5MIN PRN PRN Reason: Opiate Reversal Nifedipine (Procardia Xl) 30 mg PO BID PRN PRN Reason: SBP Greater Than 180 Last Admin: 10/17/17 15:13 Dose: 30 mg Nystatin (Mycostatin) 500,000 units SSP QID [facility] Last Admin: 10/19/17 12:15 Dose: Not Given Ondansetron HCl (Zofran) 4 mg IVP Q6H PRN PRN Reason: Nausea/Vomiting Last Admin: 10/16/17 13:20 Dose: 4 mg Oxcarbazepine (Trileptal) 600 mg PO BID [facility] Last Admin: 10/19/17 09:08 Dose: 600 mg Promethazine HCl (Phenergan) 12.5 mg IM Q4H PRN PRN Reason: Nausea/Vomiting Last Admin: 10/19/17 06:12 Dose: 12.5 mg Propranolol HCl (Inderal) 40 mg PO TID [facility] Last Admin: 10/19/17 09:09 Dose: 40 mg Ropinirole HCl (Requip) 1 mg PO [facility] Last Admin: 10/18/17 22:00 Dose: 1 mg Sodium Chloride (Flush - Normal Saline) 10 ml IVF PRN PRN PRN Reason: Saline Flush Trazodone HCl (Desyrel) 150 mg PO [facility] Last Admin: 10/18/17 22:00 Dose: Not Given Zolpidem Tartrate (Ambien) 5 mg PO HSPRN PRN PRN Reason: Insomnia Last Admin: 10/13/17 23:23 Dose: 5 mg
[2017-10-19 17:51] LABS: Osmolality, Urine 419 mOsm/kg (300-900)
[2017-10-19 17:54] LABS: Sodium, Urine 28 mmol/L (Not Available)
--- NOTE | 2017-10-19 18:35 | PRG ---
DATE OF SERVICE: 10/19/2017 SUBJECTIVE: The patient was seen and examined with no new complaint though the sodium level is still rising well. OBJECTIVE: VITAL SIGNS: Afebrile with temperature 97.9, pulse 83, respiratory rate 14, O2 sat 99%, blood pressu re 115/81. HEENT: Unremarkable with moist oral mucosa. Neck was supple. No conjunctival injection or icterus. CARDIOVASCULAR: First and second heart sounds were heard. RESPIRATORY: Clear to auscultation. DIGESTIVE: Revealed a benign abdomen with positive bowel sounds. EXTREMITIES: No peripheral edema. SKIN: No new gross rash. LYMPHATICS: No peripheral lymphadenopathy. LABORATORY: Sodium 119. IMPRESSION: Hyponatremia, likely in the context of syndrome of inappropriate antidiuretic hormone se cretion. PLAN: 1. We would have loved to use omeprazole to address his hyponatremia that trended up and then got st uck at 119; however, unfortunately this medication is unavailable, therefore we will continue with hi gh protein diet and limited free water intake. 2. We will repeat the urine chemistry to make sure diabetes is in keeping with SIADH or any other fo rm of hyponatremia that will be addressed differently. 3. Further management to be dependent on the clinical course.
[2017-10-19] MEDS: traZODone HCl 150 MG TAB PO SCH (21:11)
[2017-10-19] MEDS: rOPINIRole HCl 1 MG TAB PO SCH (22:02)
[2017-10-20] MEDS: HYDROcodone/Acetaminophen 10/325 mg Tablet PO PRN ×2 (01:40→05:49)
[2017-10-20] MEDS: Zolpidem Tartrate 5 MG TAB PO PRN (01:41)
[2017-10-20 06:55] LABS: Anion Gap 18 mmol/L (10-20); BUN (Urea Nitrogen) 15 mg/dL (9.8-20.1); Calc. Creatinine Clearance 68 mL/min (70-130); Calcium 10.1 mg/dL (7.8-10.44); Carbon Dioxide 16 mmol/L (22-29); Chloride 88 mmol/L (98-107); Estimated GFR-MDRD 75; Glucose 107 mg/dL (70-105); Potassium 3.3 mmol/L (3.5-5.1)
[2017-10-20 07:05] LABS: Sodium 119 mmol/L (136-145)
[2017-10-20] MEDS ORDERED: Sodium Chloride 3% 500 ML IVPB SCH (09:45)
[2017-10-20] MEDS: Nystatin 500,000 UNITS/5 ML UDCUP SSP SCH ×4 (10:08→20:36)
[2017-10-20] MEDS: Enoxaparin Sodium 40 MG/0.4 ML SYRINGE SC SCH ×2 (10:15→11:02)
[2017-10-20] MEDS: cloNIDine 0.1 MG TAB PO SCH ×2 (10:15→20:29)
[2017-10-20] MEDS: Propranolol 40 MG TAB PO SCH ×3 (10:16→20:27)
[2017-10-20] MEDS: Famotidine 20 MG TAB PO SCH ×3 (10:16→20:28)
[2017-10-20] MEDS: OXcarbazepine 300 MG TAB PO SCH ×2 (10:57→20:29)
[2017-10-20] MEDS ORDERED: clonazePAM 0.5 MG TAB PO PRN ×2 (12:53→12:54)
[2017-10-20] MEDS ORDERED: clonazePAM 0.5 MG TAB PO SCH (13:00)
[2017-10-20 13:18] LABS: Sodium 122 mmol/L (136-145)
[2017-10-20 16:28] LABS: Sodium 123 mmol/L (136-145)
[2017-10-20] MEDS: Pregabalin 50 MG CAP PO SCH ×2 (16:45→20:28)
[2017-10-20] MEDS ORDERED: Potassium Chloride 20 MEQ TAB PO SCH (18:00)
--- NOTE | 2017-10-20 18:09 | PDOC.PN ---
- Subjective Encounter Start Date: 10/20/17 Encounter Start Time: 13:00 Patient seen and examined. Intermittent confusion. No overnight events - Objective MAR Reviewed: Yes Vital Signs & Weight: Vital Signs (12 hours) Temp Pulse Resp BP BP Pulse Ox 10/20/17 15:57 98.3 F 112 H 20 122/94 H 99 10/20/17 12:00 98.5 F 110 H 20 117/82 96 10/20/17 10:15 128/88 10/20/17 08:00 98.5 F 110 H 20 121/88 100 Weight Admit Weight 120 lb 2.416 oz Weight 120 lb 2.416 oz I&O: 10/19/17 10/20/17 10/21/17 06:59 06:59 06:59 Intake Total 600 988 Balance 600 988 Result Diagrams: 10/16/17 05:17 10/20/17 16:11 Phys Exam - Physical Examination Constitutional: NAD Respiratory: no wheezing, no rhonchi Cardiovascular: RRR, no rub Gastrointestinal: soft, non-tender, positive bowel sounds Musculoskeletal: no edema Neurological: moves all 4 limbs Dx/Plan - Plan DVT proph w/SCDs IMPRESSION: 1. HTN - better controlled 2. 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 Hypokalemia 4. Toxic Metabolic Encephalopathy - multifactorial PLAN: * Replace Potassium * Nephrology following * Cont Propanolol 40 mg TID * Changed Clonidine 0.1 mg bid - hold for SBP < 130 * Cont other PRN meds for SBP >180 * Will follow * Resume low dose of Clonazepam/Lyrica (patient may be withdrawing from these meds) Review of Systems - Review of Systems Respiratory: negative: Cough, Dry, Shortness of Breath, Hemoptysis, SOB with Excertion, Pleuritic Pain, Sputum, Wheezing Cardiovascular: negative: chest pain, palpitations, orthopnea, paroxysmal nocturnal dyspnea, edema, light headedness Gastrointestinal: negative: Nausea, Vomiting, Abdominal Pain, Diarrhea, Constipation, Melena, Hematochezia - Medications/Allergies Allergies/Adverse Reactions: Allergies Allergy/AdvReac Type Severity Reaction Status Date / Time ciprofloxacin [From Cipro] Allergy Verified 10/09/17 07:07 ibuprofen Allergy Verified 10/09/17 07:07 latex Allergy Verified 10/09/17 07:07 sumatriptan [From Imitrex] Allergy Verified 10/09/17 07:07 sumatriptan succinate Allergy Verified 10/09/17 07:07 [From Imitrex] ciprofloxacin HCl AdvReac Mild Verified 10/11/17 16:46 [From Cipro] Medications: Current Medications Acetaminophen (Tylenol) 1,000 mg PO Q6H PRN PRN Reason: . Hydrocodone Bitart/Acetaminophen ([place] 10/325) 1 tab PO Q4H PRN PRN Reason: PAIN SCALE 1-5 Last Admin: 10/17/17 20:20 Dose: 1 tab Hydrocodone Bitart/Acetaminophen ([place] 10/325) 2 tab PO Q4H PRN PRN Reason: PAIN SCALE 6-10 Last Admin: 10/20/17 05:49 Dose: 2 tab Albuterol Sulfate (Proventil Hfa) 2 puff INH Q4H PRN PRN Reason: SOB &/or Wheezing Albuterol/Ipratropium (Duoneb) 3 ml NEB Q4H PRN PRN Reason: Wheezing Albuterol/Ipratropium (Duoneb) 3 ml NEB [id number] PRN PRN Reason: SOB &/or Wheezing Clonazepam (Klonopin) 0.5 mg PO DAILY PRN PRN Reason: Anxiety Clonidine (Catapres) 0.1 mg PO Q4H PRN PRN Reason: Systolic BP > 180/ DBP >100 Clonidine (Catapres) 0.1 mg PO BID [facility] Last Admin: 10/20/17 10:15 Dose: Not Given Enoxaparin Sodium (Lovenox) 40 mg SC 0900 [facility] Last Admin: 10/20/17 11:02 Dose: 40 mg Famotidine (Pepcid) 20 mg PO Q12HR [facility] Last Admin: 10/20/17 10:56 Dose: 20 mg Hydralazine HCl (Apresoline) 10 mg SLOW IVP Q4H PRN PRN Reason: SBP > 170 or DBP > 100 Sodium Chloride (Sodium Chloride 3%) 500 mls @ 27 mls/hr IVPB NOW [facility] Stop: 10/21/17 04:17 Last Admin: 10/20/17 10:16 Dose: 500 mls Naloxone HCl (Narcan) 0.2 mg IV Q5MIN PRN PRN Reason: Opiate Reversal Nifedipine (Procardia Xl) 30 mg PO BID PRN PRN Reason: SBP Greater Than 180 Last Admin: 10/17/17 15:13 Dose: 30 mg Nystatin (Mycostatin) 500,000 units SSP QID [facility] Last Admin: 10/20/17 16:48 Dose: Not Given Ondansetron HCl (Zofran) 4 mg IVP Q6H PRN PRN Reason: Nausea/Vomiting Last Admin: 10/16/17 13:20 Dose: 4 mg Oxcarbazepine (Trileptal) 600 mg PO BID [facility] Last Admin: 10/20/17 10:57 Dose: 600 mg Potassium Chloride (K-Dur) 20 meq PO ONE [facility] Pregabalin (Lyrica) 50 mg PO TID [facility] Last Admin: 10/20/17 16:45 Dose: 50 mg Propranolol HCl (Inderal) 40 mg PO TID [facility] Last Admin: 10/20/17 16:48 Dose: 40 mg Ropinirole HCl (Requip) 1 mg PO [facility] Last Admin: 10/19/17 22:02 Dose: 1 mg Sodium Chloride (Flush - Normal Saline) 10 ml IVF PRN PRN PRN Reason: Saline Flush Trazodone HCl (Desyrel) 150 mg PO HS [facility] Last Admin: 10/19/17 21:11 Dose: 150 mg
[2017-10-20 19:15] LABS: Sodium 128 mmol/L (136-145)
[2017-10-20] MEDS: rOPINIRole HCl 1 MG TAB PO SCH (20:27)
[2017-10-20] MEDS: traZODone HCl 150 MG TAB PO SCH (20:28)
[2017-10-20 20:55] LABS: Sodium 124 mmol/L (136-145)
[2017-10-20 22:44] LABS: Sodium 126 mmol/L (136-145)
--- NOTE | 2017-10-21 01:22 | PRG ---
DATE OF SERVICE: 10/20/2017 SUBJECTIVE: The patient was seen and examined with no new complaint except , hemodynamically st able. OBJECTIVE: HEENT: Unremarkable with moist oral mucosa. No conjunctival injection or icterus. CARDIOVASCULAR SYSTEM: First and second heart sounds were heard. RESPIRATORY SYSTEM: Clear to auscultation. DIGESTIVE SYSTEM: Revealed a benign abdomen with positive bowel sounds. EXTREMITIES: No peripheral edema. SKIN: No new gross rash. LYMPHATICS: No peripheral lymphadenopathy. LABORATORY INVESTIGATIONS: Shows sodium that is . IMPRESSION: 1. Hyponatremia in the context of SIADH. PLAN: hyponatremia in the context of SIADH. We will initiate hypertonic saline and monitor so dium level closely. Condition of the patient .
[2017-10-21] MEDS: HYDROcodone/Acetaminophen 10/325 mg Tablet PO PRN ×2 (04:53→12:43)
[2017-10-21 06:39] LABS: Albumin 3.5 g/dL (3.5-5.0); Anion Gap 15 mmol/L (10-20); BUN (Urea Nitrogen) 14 mg/dL (9.8-20.1); BUN/Creatinine Ratio 18.18; Calc. Creatinine Clearance 69 mL/min (70-130); Calcium 9.5 mg/dL (7.8-10.44); Carbon Dioxide 19 mmol/L (22-29); Chloride 100 mmol/L (98-107); Estimated GFR-MDRD 77; Glucose 160 mg/dL (70-105); Potassium 3.7 mmol/L (3.5-5.1); Sodium 130 mmol/L (136-145)
[2017-10-21 06:41] LABS: Sodium 130 mmol/L (136-145)
[2017-10-21] MEDS: Famotidine 20 MG TAB PO SCH (09:52)
[2017-10-21] MEDS: Pregabalin 50 MG CAP PO SCH (09:52)
[2017-10-21] MEDS: OXcarbazepine 300 MG TAB PO SCH (09:52)
[2017-10-21] MEDS: Propranolol 40 MG TAB PO SCH (09:53)
[2017-10-21] MEDS: cloNIDine 0.1 MG TAB PO SCH (09:53)
[2017-10-21] MEDS: Enoxaparin Sodium 40 MG/0.4 ML SYRINGE SC SCH (09:53)
[2017-10-21 12:39] VITALS: BP 106/75; TEMP 97.1
--- NOTE | 2017-10-23 08:56 | DIS ---
DATE OF ADMISSION: 10/08/2017 DATE OF DISCHARGE: 10/21/2017 ADMISSION DIAGNOSES: 1. Abdominal pain. 2. Parastomal hernia. CONSULTATIONS: None. PROCEDURES: Colostomy reversal and repair of parastomal hernia. SUMMARY: The patient is a 57-year-old female who presented to the emergency room with acute onset of abdominal pain. The patient had a history of colostomy and was noted to have a parastomal hernia. The patient will be admitted by our service until her primary surgeon return from the holidays, at wh ich time she underwent her above procedure. She tolerated this procedure well. At the time of disch arge, her bowel function had returned, her pain was controlled, she was tolerating a diet, and she wa s ambulating with minimal assistance. The patient will follow up with Dr. Maldonado in his clinic per hi s instructions.
== END 2017-10-21 12:57 | disposition home or self-care (01) | DRG 329 ==
LOC: ERS 21:15 → SURG A 22:00
PROVIDERS: ADMIT Specialist; ATTEND Specialist
PROC: 0DBE0ZZ Excision of Large Intestine, Open Approach (ICD-10-PCS; principal; 2017-10-15)
PROC: 0WQF0ZZ Repair Abdominal Wall, Open Approach (ICD-10-PCS; 2017-10-15)
PROC: 0DBU0ZZ Excision of Omentum, Open Approach (ICD-10-PCS; 2017-10-15)
PROC: 3E0T3BZ Introduction of Anesthetic Agent into Peripheral Nerves and Plexi, Percutaneous Approach (ICD-10-PCS; 2017-10-15)
DX: K43.5 Parastomal hernia without obstruction or gangrene (principal); G92 Toxic encephalopathy; E22.2 Syndrome of inappropriate secretion of antidiuretic hormone; K66.0 Peritoneal adhesions (postprocedural) (postinfection); I10 Essential (primary) hypertension; Z43.3 Encounter for attention to colostomy; Z87.19 Personal history of other diseases of the digestive system; Z90.49 Acquired absence of other specified parts of digestive tract; Z88.1 Allergy status to other antibiotic agents; Z88.8 Allergy status to other drugs, medicaments and biological substances
CPT/HCPCS: 36415; 36416; 74018; 80048; 80069; 82533; 83735; 83930; 83935; 84300; 84443; 85025; 88307; 96374; 96375; A4216; J0131; J0171; J0360; J0694; J1100; J1170; J1200; J1650; J1885; J2001; J2250; J2270; J2405; J2543; J2550; J2704; J3010; J7050; J7131; S0028

== ENCOUNTER 2017-11-15 13:43 | Inpatient (IN) | payer OTHER ==
[~2017-11-15 13:43] MED LIST: Iopamidol 370 76% 100 ML VIAL ONE
[2017-11-15 14:27] LABS: #Basophils 0.1 thou/uL (0.0-0.2); #Eosinphils 0.3 thou/uL (0.0-0.7); #Lymphocytes 1.8 thou/uL (1.20-3.40); #Monocytes 0.8 thou/uL (0.11-0.59); %Basophils 0.4 % (0.0-1.0); %Eosinophils 2.7 % (0.0-10.0); %Monocytes 6.4 % (0.0-10.0); %Neutrophils 76.6 % (42.0-75.0); Mean Corpuscular HGB CONC 32.5 g/dL (32.0-36.0); Mean Corpuscular Hemoglobin 31.3 pg (27.0-31.0); Mean Corpuscular Volume 96.4 fl (81.0-99.0); Mean Platelet Volume 6.1 fL (7.4-10.4); Platelet Count 554 thou/uL (130-400); RBC Distribution Width 13.4 % (11.5-14.5); Red Blood Cell (RBC) Count 3.52 mill/uL (4.20-5.40)
[2017-11-15 14:53] LABS: ALT (SGPT) 31 U/L (8-55); AST (SGOT) 40 U/L (5-34); Albumin 3.6 g/dL (3.5-5.0); Alkaline Phosphatase 282 U/L (40-150); Anion Gap 12 mmol/L (10-20); BUN (Urea Nitrogen) 13 mg/dL (9.8-20.1); Bilirubin, Total 0.2 mg/dL (0.2-1.2); Calc. Creatinine Clearance 0 mL/min (70-130); Calcium 9.8 mg/dL (7.8-10.44); Carbon Dioxide 24 mmol/L (22-29); Chloride 101 mmol/L (98-107); Estimated GFR-MDRD Greater than 90; Globulin 3.8 g/dL (2.4-3.5); Glucose 92 mg/dL (70-105); Potassium 3.3 mmol/L (3.5-5.1); Protein, Total 7.4 g/dL (6.0-8.3); Sodium 134 mmol/L (136-145)
--- NOTE | 2017-11-15 19:00 | CT ---
CT OF ABDOMEN AND PELVIS PERFORMED WITH CONTRAST ENHANCEMENT: 11/15/17 HISTORY: Abdominal pain. COMPARISON: A 07/23/17 study. The lung bases show some chronic appearing interstitial change with the interstitial changes probably more prominent than on the prior examination, more so in the right lung base but not a confluent inf iltrative process. The possibility of some developing infiltrate cannot be excluded. The liver and spleen are within normal limits of size. Right lobe hepatic cysts are again identified which appear to be stable. Largest of these is near the gallbladder fossa region. There is some intra and extrahepatic ductal prominence which is similar to the prior exam. The patient is status post ch olecystectomy. The pancreas region is unremarkable. The ill-defined fluid collection in the left uppe r quadrant seen on the prior exam has resolved. Right and left adrenal glands and right and left kidneys are normal. There is no significant periaort ic or mesenteric adenopathy. Postoperative changes of the colon are noted. The colostomy that was pre sent on the prior examination is no longer present. There is an anastomotic suture line in the rectos igmoid region. The colon is entirely right sided. There is a moderate amount of stool seen throughout the colon. There is no wall thickening. There is some free fluid seen within the pelvis, more than t ypically seen, but nonspecific. No signs of any abscess collection. Fluid collection measures approxi mately 3 x 6 cm in size. The bladder is normal in position. IMPRESSION: 1. Chronic appearing interstitial lung changes. Interstitial changes in the bases are slightly m ore pronounced than on the prior exam without a definite confluent infiltrative process. 2. The colostomy noted on the prior examination is no longer present. There is anastomotic sutur e line in the rectosigmoid colon. There is a moderate amount of stool present throughout the colon. F luid collection is seen within the pelvis. This is to the right side and mostly more superior to the area of anastomosis. It could be a postoperative collection. I am not certain of the timeframe of the surgery. There is no signs that would suggest this is an abscess collection. I think it would be unl ikely to represent a leak as it is not directly adjacent to the anastomotic suture line. POS: [facility]
[2017-11-15] MEDS ORDERED: Piperacillin/Tazobactam 3.375 GM in Sodium Chloride 0.9% 100 ML IVPB ONE (20:15)
[2017-11-15] MEDS ORDERED: Morphine 5 MG/ML SYRINGE SLOW IVP PRN (21:06)
[2017-11-15] MEDS ORDERED: Ondansetron HCl/PF 4 MG/2 ML Vial IVP PRN (21:07)
[2017-11-15] MEDS ORDERED: Ondansetron ODT 4 MG TAB SL PRN (21:07)
[2017-11-15 21:40] VITALS: BMI 21.0
[2017-11-15] MEDS: Sodium Chloride 0.9% 1,000 ML IV SCH (21:48)
[2017-11-16] MEDS: Morphine 5 MG/ML SYRINGE SLOW IVP PRN ×7 (00:02→21:25)
[2017-11-16] MEDS: Sodium Chloride 0.9% 1,000 ML IV SCH ×3 (04:24→21:09)
--- NOTE | 2017-11-16 07:59 | HP ---
CHIEF COMPLAINT: Incisional pain. HISTORY OF PRESENT ILLNESS: This is a 57-year-old female who underwent a colostomy reversal on 10/13. She reports a 10 day history of increasing incisional pain, primarily periumbilical. She melissa t to the emergency room 3 days ago in [place]. They did a CAT scan, could not find anything wrong. She was discharged, came back the ER yesterday with increasing redness. She says her bowels are wo rking. She denies fever. PAST MEDICAL HISTORY: Schizophrenia, asthma. PAST SURGICAL HISTORY: She has had a left hemicolectomy with end colostomy for ischemic colitis. Sh [place] had a laparoscopic cholecystectomy. She had a total abdominal hysterectomy. She had a right arm s urgery. MEDICATIONS: ProAir inhaler, clonidine, ropinirole, clonazepam, Fioricet, gabapentin, oxcarbazepine, trazodone, propranolol, amitriptyline, meclizine, Lyrica. ALLERGIES: She has allergies to CIPRO, IBUPROFEN, SUMATRIPTAN. SOCIAL HISTORY: She is . She has a boyfriend. She uses alcohol and possibly street drugs. PHYSICAL EXAMINATION: VITAL SIGNS: Temperature 97.5, pulse 71, blood pressure 153/93. GENERAL: She is anxious. She is walking around. She does not appear to be in any severe pain. HEENT: Unremarkable. LUNGS: Clear. HEART: Regular rate and rhythm. ABDOMEN: Nondistended. She has a healing midline incision and it is extremely sensitive, tender gareth lisandra near the umbilicus. There is some mild erythema. It is difficult to examine her because it i s so sensitive. I do not see any drainage. LABORATORY AND X-RAY FINDINGS: Her white count is 13, H&H 11 and 34, platelet count 554. Electrolyt es are fine. She had a CT scan that showed some small amount of fluid in the pelvis that is away fro m the anastomosis. The radiologist does not feel it is an abscess nor does he feel that it from a le ak. Otherwise, they just said there was a lot of stool in her colon. ASSESSMENT: Possible cellulitis, possible wound abscess. PLAN: Ultrasound of the abdominal wall. If there is any fluid collections in the incisional area I would recommend incision and drainage.
--- NOTE | 2017-11-16 09:58 | ULT ---
FOCUS ULTRASOUND OF THE UMBILICAL REGION: Date: 11-16-17 Comparison: CT abdomen and pelvis, 11-15-17. History: Tender erythematous wound near umbilicus, assess for a drainable fluid collection. FINDINGS: Focused ultrasound in the area of concern is provided. There is an ill-defined area of abnormal heter ogeneous echogenicity in the periumbilical region and involving the soft tissues deep to the umbilicu s, measuring up to 3.2 x 3.1 x 1.9 cm. No drainable abscess is seen in this region. There are punctat e foci of relatively decreased echogenicity suggesting possible small fluid components. This was bett er assessed on the CT exam performed 11-15-17. IMPRESSION: Area of heterogeneous abnormal echogenicity in the periumbilical/retro-umbilical region measuring up to 3.2 cm. This is suspicious for phlegmon/inflammatory change. No drainable abscess is seen. Follow up imaging following treatment advised. POS: [facility]
[2017-11-16] MEDS ORDERED: diphenhydrAMINE 50 MG/ML VIAL IVP PRN ×2 (11:55→11:56)
[2017-11-16] MEDS ORDERED: hydrALAZINE 20 MG/ML VIAL SLOW IVP SCH (12:00)
[2017-11-16] MEDS ORDERED: Polyethylene Glycol 3350 17 GM Packet PO SCH (12:00)
[2017-11-16] MEDS ORDERED: cloNIDine 0.1 MG TAB PO PRN (12:10)
[2017-11-16] MEDS ORDERED: Meclizine HCl 25 MG TAB PO PRN (12:11)
[2017-11-16] MEDS: Gabapentin 300 MG CAP PO SCH ×3 (13:47→21:08)
[2017-11-16] MEDS: Pregabalin 50 MG CAP PO SCH ×2 (15:08→21:08)
[2017-11-16] MEDS: PROVENTIL INHALER 6.7 G (200 INHALATIONS) INH SCH ×3 (15:29→22:24)
[2017-11-16] MEDS: GoLYTELY 4,000 ml Bottle PO SCH (17:30)
[2017-11-16] MEDS ORDERED: OXcarbazepine 600 MG TAB PO SCH (21:00)
[2017-11-16] MEDS: traZODone HCl 150 MG TAB PO SCH (21:08)
[2017-11-16] MEDS: OXcarbazepine 300 MG TAB PO SCH (21:08)
[2017-11-16] MEDS: rOPINIRole HCl 1 MG TAB PO SCH (21:10)
[2017-11-16] MEDS: Propranolol 40 MG TAB PO SCH ×2 (21:11→21:19)
[2017-11-17] MEDS: Morphine 5 MG/ML SYRINGE SLOW IVP PRN ×3 (02:28→21:25)
[2017-11-17] MEDS: PROVENTIL INHALER 6.7 G (200 INHALATIONS) INH SCH ×6 (03:04→22:20)
[2017-11-17] MEDS: Sodium Chloride 0.9% 1,000 ML IV SCH ×3 (03:17→21:29)
[2017-11-17] MEDS: Pregabalin 50 MG CAP PO SCH ×3 (09:40→20:40)
[2017-11-17] MEDS: Aspirin 325 MG TAB PO SCH (09:41)
[2017-11-17] MEDS: Polyethylene Glycol 3350 17 GM Packet PO SCH (09:41)
[2017-11-17] MEDS: Gabapentin 300 MG CAP PO SCH ×4 (09:41→20:40)
[2017-11-17] MEDS: OXcarbazepine 300 MG TAB PO SCH ×2 (09:42→20:40)
[2017-11-17] MEDS: clonazePAM 1 MG TAB PO SCH (09:42)
[2017-11-17] MEDS: Propranolol 40 MG TAB PO SCH ×2 (09:42→20:40)
[2017-11-17] MEDS ORDERED: Ondansetron HCl/PF 4 MG/2 ML Vial ONE (13:58)
[2017-11-17] MEDS ORDERED: Glycopyrrolate 0.2 MG/ML 5 ML SYRINGE ONE (13:58)
[2017-11-17] MEDS ORDERED: Lidocaine 1% PF 5 ML VIAL ONE (13:58)
[2017-11-17] MEDS ORDERED: Propofol 200 MG/20 ML VIAL ONE (13:58)
[2017-11-17] MEDS ORDERED: Fentanyl 100 MCG/2 ML VIAL ONE (15:38)
[2017-11-17] MEDS ORDERED: HYDROmorphone 0.5 MG/0.5 ML SYRINGE ONE (15:38)
--- NOTE | 2017-11-17 17:36 | OP ---
PREOPERATIVE DIAGNOSIS: Wound abscess. SURGEON: Juan Maldonado M.D. PROCEDURE: Incision and drainage. INDICATIONS: A 57-year-old female who is about 6 weeks status post colostomy takedown and developed increasing abdominal pain and erythema of the incision. Ultrasound did not show anything, then she d eveloped a blister. FINDINGS: There were 3 separate small abscesses in the midline containing purulent fluid. This was sent for culture. PROCEDURE IN DETAIL: After informed consent was obtained, the patient was taken to the operating cintia m and given general endotracheal anesthesia. She was placed in the supine position. Her abdomen was prepped and draped in the usual fashion. An elliptical incision was made over to excise the blister releasing purulent fluid. There was probably 1-2 mL of thick creamy purulent fluid that was sent fo r culture. This cavity was thoroughly irrigated. There were two other areas that were also suspicio us and again these did contain a very small amount of purulent fluid. Once drained, they were irriga trung thoroughly and packed open with Betadine gauze, covered by sterile gauze. Patient tolerated the procedure well and transferred to recovery in good condition.
[2017-11-17] MEDS: Meropenem 1 GM in Sterile Water 20 ML SLOW IVP SCH (17:51)
[2017-11-17] MEDS: GoLYTELY 4,000 ml Bottle PO SCH (17:54)
[2017-11-17] MEDS: rOPINIRole HCl 1 MG TAB PO SCH (20:40)
[2017-11-17] MEDS: traZODone HCl 150 MG TAB PO SCH (20:40)
[2017-11-17] MEDS ORDERED: Meropenem 1 GM in Sodium Chloride 0.9% 100 ML IVPB SCH (22:00)
[2017-11-18] MEDS: Meropenem 1 GM in Sterile Water 20 ML SLOW IVP SCH ×2 (00:09→09:43)
[2017-11-18] MEDS: PROVENTIL INHALER 6.7 G (200 INHALATIONS) INH SCH ×3 (02:30→11:24)
[2017-11-18] MEDS: Sodium Chloride 0.9% 1,000 ML IV SCH ×2 (03:58→12:19)
[2017-11-18] MEDS: Gabapentin 300 MG CAP PO SCH ×2 (07:44→11:51)
[2017-11-18] MEDS: OXcarbazepine 300 MG TAB PO SCH (07:45)
[2017-11-18] MEDS: Pregabalin 50 MG CAP PO SCH (07:45)
[2017-11-18] MEDS: clonazePAM 1 MG TAB PO SCH (07:45)
[2017-11-18] MEDS: Aspirin 325 MG TAB PO SCH (07:45)
[2017-11-18] MEDS: Polyethylene Glycol 3350 17 GM Packet PO SCH (07:46)
[2017-11-18] MEDS: Morphine 5 MG/ML SYRINGE SLOW IVP PRN (07:51)
[2017-11-18 11:47] VITALS: BP 138/87; TEMP 98
[2017-11-18] MEDS: Propranolol 40 MG TAB PO SCH (11:52)
--- NOTE | 2017-11-20 13:10 | DIS ---
DATE OF ADMISSION: 11/15/2017 DATE OF DISCHARGE: 11/18/2017 ADMISSION DIAGNOSES: Possible cellulitis, possible wound abscesses. CONSULTATIONS: None. PROCEDURES: Incision and drainage of 3 separate small abscesses in the midline of the abdomen. SUMMARY: Patient is a 57-year-old female who was about 6 weeks status post colostomy takedown and de veloped increasing abdominal pain, erythema in the area of the incision. The patient underwent evalu ation and examination and was noted to have 3 small abscesses which were formally I&D'd in the operat ing room. The patient tolerated this procedure well. She was discharged home and will follow up nirav Maldonado this week to check her wound culture results. Patient was given strict return precaution s and wound care instructions by the Wound Care team.
== END 2017-11-18 12:51 | disposition home or self-care (01) | DRG 863 ==
LOC: ERS 13:43 → SURG A 19:40
PROVIDERS: ADMIT Surgery; ATTEND Surgery
PROC: 0H97XZX Drainage of Abdomen Skin, External Approach, Diagnostic (ICD-10-PCS; principal; 2017-11-17)
DX: T81.4XXA Infection following a procedure, initial encounter (principal); F20.9 Schizophrenia, unspecified; L02.211 Cutaneous abscess of abdominal wall; L03.311 Cellulitis of abdominal wall; J45.909 Unspecified asthma, uncomplicated; Z90.49 Acquired absence of other specified parts of digestive tract; Z79.51 Long term (current) use of inhaled steroids; Z88.6 Allergy status to analgesic agent; Z88.1 Allergy status to other antibiotic agents; Z88.8 Allergy status to other drugs, medicaments and biological substances; I10 Essential (primary) hypertension; F41.9 Anxiety disorder, unspecified; F32.9 Major depressive disorder, single episode, unspecified; F43.10 Post-traumatic stress disorder, unspecified; F17.210 Nicotine dependence, cigarettes, uncomplicated
CPT/HCPCS: 36415; 74177; 76705; 80053; 85025; 87070; 87077; 87186; 87205; 94664; 96361; 96374; 96375; 96376; J2270; A4216; J0360; J1170; J1200; J2001; J2185; J2405; J2543; J2704; J3010; J7050

== ENCOUNTER 2017-11-22 21:45 | Emergency (ER) | payer OTHER ==
[2017-11-22 22:40] LABS: #Basophils 0.1 thou/uL (0.0-0.2); #Eosinphils 0.3 thou/uL (0.0-0.7); #Monocytes 0.6 thou/uL (0.11-0.59); #Neutrophils 5.3 thou/uL (1.40-6.50); %Basophils 0.7 % (0.0-1.0); %Eosinophils 3.6 % (0.0-10.0); %Lymphocytes 24.1 % (21.0-51.0); %Monocytes 7.1 % (0.0-10.0); %Neutrophils 64.4 % (42.0-75.0); Hemoglobin 11.3 g/dL (12.0-16.0); Mean Corpuscular HGB CONC 32.6 g/dL (32.0-36.0); Mean Corpuscular Hemoglobin 30.4 pg (27.0-31.0); Mean Corpuscular Volume 93.1 fl (81.0-99.0); Mean Platelet Volume 6.6 fL (7.4-10.4); Platelet Count 509 thou/uL (130-400); RBC Distribution Width 13.8 % (11.5-14.5); Red Blood Cell (RBC) Count 3.71 mill/uL (4.20-5.40); White Blood Cell (WBC) Count 8.2 thou/uL (4.8-10.8)
[2017-11-22 23:05] LABS: ALT (SGPT) 17 U/L (8-55); AST (SGOT) 12 U/L (5-34); Albumin 3.4 g/dL (3.5-5.0); Alkaline Phosphatase 204 U/L (40-150); Anion Gap 12 mmol/L (10-20); BUN (Urea Nitrogen) 10 mg/dL (9.8-20.1); Bilirubin, Total 0.2 mg/dL (0.2-1.2); Calc. Creatinine Clearance 0 mL/min (70-130); Calcium 9.2 mg/dL (7.8-10.44); Carbon Dioxide 25 mmol/L (22-29); Chloride 97 mmol/L (98-107); Estimated GFR-MDRD Greater than 90; Globulin 3.4 g/dL (2.4-3.5); Glucose 89 mg/dL (70-105); Lipase 26 U/L (8-78); Protein, Total 6.8 g/dL (6.0-8.3); Sodium 130 mmol/L (136-145)
== END 2017-11-22 23:15 | disposition home or self-care (01) ==
LOC: ERS 21:45
DX: Z48.817 Encounter for surgical aftercare following surgery on the skin and subcutaneous tissue (principal); I10 Essential (primary) hypertension; F41.9 Anxiety disorder, unspecified; F31.9 Bipolar disorder, unspecified; F43.10 Post-traumatic stress disorder, unspecified; F17.210 Nicotine dependence, cigarettes, uncomplicated; Z79.899 Other long term (current) drug therapy
CPT/HCPCS: 36415; 80053; 83690; 85025; 87040; 87149; 99284

== ENCOUNTER 2018-03-29 16:49 | Emergency (ER) | payer OTHER ==
[2018-03-30] MEDS ORDERED: hydrALAZINE 20 MG/ML VIAL ONE (01:07)
[2018-03-30 01:12] LABS: ALT (SGPT) 25 U/L (8-55); AST (SGOT) 25 U/L (5-34); Alkaline Phosphatase 197 U/L (40-150); Anion Gap 15 mmol/L (10-20); BUN (Urea Nitrogen) 19 mg/dL (9.8-20.1); Bilirubin, Total 0.7 mg/dL (0.2-1.2); Calc. Creatinine Clearance 0 mL/min (70-130); Calcium 9.3 mg/dL (7.8-10.44); Carbon Dioxide 23 mmol/L (22-29); Chloride 101 mmol/L (98-107); Estimated GFR-MDRD 87; Globulin 3.1 g/dL (2.4-3.5); Glucose 96 mg/dL (70-105); Potassium 4.7 mmol/L (3.5-5.1); Protein, Total 7.1 g/dL (6.0-8.3); Sodium 134 mmol/L (136-145)
[2018-03-30] MEDS ORDERED: Acetaminophen 500 MG TAB ONE (03:24)
== END 2018-03-30 03:59 ==
LOC: ERS 16:49
DX: T42.6X2A Poisoning by other antiepileptic and sedative-hypnotic drugs, intentional self-harm, initial encounter (principal); F41.9 Anxiety disorder, unspecified; F31.9 Bipolar disorder, unspecified; F43.10 Post-traumatic stress disorder, unspecified; F17.210 Nicotine dependence, cigarettes, uncomplicated
CPT/HCPCS: 36415; 80053; 80307; 93005; 96374; J0360